=== PATIENT | female | born 1945 | race Caucasian/White ===

== ENCOUNTER → 2022-05-30 | Outpatient (CLI) | payer MEDICARE ==
--- NOTE | 2022-05-30 17:18 | Diagnostic Imaging Report ---
INDICATION: Postmenopausal state COMPARISON: None available FINDINGS: AP Spine L1-L4: [BMD (g/cm2): 1.338] [T-Score: 1.2] [Z-Score: 2.3] [BMD Previous: NA] [BMD % Change: NA] LT Hip Neck: [BMD (g/cm2): 0.750] [T-Score: -2.1] [Z-Score: -0.4] LT Hip Total: [BMD (g/cm2):0.915] [T-Score:-0.7] [Z-Score: 0.7] [BMD Previous: NA] [BMD % Change: NA] RT Hip Neck: [BMD (g/cm2):0.801] [T-Score:-1.7] [Z-Score:0.0] RT Hip Total: [BMD (g/cm2):0.917] [T-score:-0.7] [Z-Score:0.8] [BMD Previous:NA] [BMD % Change:NA] *Indicates significant change from prior examination based on 95% confidence level. World Health Organization criteria for BMD interpretation classify patients as Normal (T-score at or above -1.0), Osteopenic (T-score between -1.0 and -2.5) or Osteoporotic (T-score at or below -2.5). LIMITATIONS AND MODIFICATION: Postsurgical changes with posterior decompression noted within the lower lumbar spine. FRACTURE RISK (FRAX SCORE): The ten year probability of (%): Major Osteoporotic Fracture: [14.9] Hip Fracture: [4.3] IMPRESSION: 1. Osteopenia (Low bone mass). 2. Baseline examination. 3. See below National Osteoporosis Foundation guidelines on when to potentially initiate pharmacologic therapy. Based on the National Osteoporosis Foundation Guidelines, pharmacologic treatment should be initiated in any of the following, unless clinical conditions suggest otherwise: * Any patient with prior fragility fracture of the hip or vertebrae. A spine fracture indicates 5X risk for subsequent spine fracture and 2X risk for subsequent hip fracture. * Osteoporosis (T-score <-2.5). * Postmenopausal women and men age 50 and older with low bone mass/osteopenia (T-score between -1.0 and -2.5) by DXA and 10-year major osteoporotic fracture greater than 20% or a 10-year probability of hip fracture greater than 3%. These fracture risks are supplied above in the FRAX score, if applicable. * Clinician judgement and/or patient preferences may indicate treatment for people with 10-year fracture probabilities above or below these levels. Dictated by: Dictated on workstation # [id number]
== END ==
LOC: RAD 09:30
PROVIDERS: ATTEND Family Medicine Sports Medicine
DX: R94.4 Abnormal results of kidney function studies (principal); I10 Essential (primary) hypertension; M81.0 Age-related osteoporosis without current pathological fracture; E78.00 Pure hypercholesterolemia, unspecified; M54.50 Low back pain, unspecified; G89.29 Other chronic pain; F33.0 Major depressive disorder, recurrent, mild; M85.80 Other specified disorders of bone density and structure, unspecified site; Z78.0 Asymptomatic menopausal state
CPT/HCPCS: 77080

== ENCOUNTER 2022-06-15 15:50 | Inpatient (IN) | payer MEDICARE ==
[~2022-06-15] VITALS: Ht 162.5 cm; Wt 90.4 kg
[2022-06-15] VITALS (8 sets, daily range): BP systolic 94–121; BP diastolic 47–95
[2022-06-15] MEDS ORDERED: RT-ALBUTEROL/IPRATROPIUM 3 ML (DUONEB) VIAL INH ONE (16:15)
--- NOTE | 2022-06-15 16:20 | ED Respiratory ---
General Chief Complaint: Respiratory Problems Stated Complaint: LOW OX STATS Nursing Triage Note: PT TO RM 8 BY WC WITH COMPLAINT OF LOW OXYGEN. PT WAS SENT BY DR RIVAS TO ED. STARTED FEELING WEAK TWO DAYS AGO. Source: patient Exam Limitations: no limitations History of Present Illness Date Seen by Provider: Jun 15, 2022 Time Seen by Provider: 16:17 Initial Comments 76-year-old female presents for shortness of breath. She states symptoms started today. She was seen at her primary care doctor's office today and oxygen saturations were reportedly around 50 to 60%. She states she started feeling weak 2 days ago, short of breath today. She denies any fevers or chills. She has had a mild nonproductive cough. No sick contacts. No chest pain. No abdominal pain. No changes in bowel or bladder habits. She thinks she may have COPD. She just moved to the area and states the doctor where she was from prior "did not seem concerned about it." She has no known cardiac history but did have a stress test recently for clearance for back surgery. This was reportedly negative. Allergies and Home Medications Allergies Coded Allergies: No Known Drug Allergies (Unverified , 06/15/22) Patient Home Medication List Home Medication List Reviewed: Yes Review of Systems Review of Systems Constitutional: no symptoms reported EENTM: no symptoms reported Respiratory: short of breath Cardiovascular: no symptoms reported Gastrointestinal: no symptoms reported Genitourinary: no symptoms reported Musculoskeletal: no symptoms reported Skin: no symptoms reported Psychiatric/Neurological: No Symptoms Reported Hematologic/Lymphatic: No Symptoms Reported Immunological/Allergic: no symptoms reported Past Jraqiyo-Kwryqe-Lfdqpn Hx Patient Social History Tobacco Use?: No Smoking Status: Former Smoker Use of E-Cig and/or Vaping dev: No Substance use?: No Alcohol Use?: Yes Alcohol Frequency: Once in a while Pt feels they are or have been: No Family Medical History Reviewed Nursing Family Hx No Pertinent Family Hx Physical Exam Vital Signs - First Documented 06/15/22 06/15/22 15:55 16:23 Pulse 61 Resp 22 B/P (MAP) 124/81 (95) Pulse Ox 93 O2 Delivery OxyMask O2 Flow Rate 10.00 Capillary Refill : Greater Than 3 Seconds Height: '" Weight: lbs. oz. kg; 33.00 BMI Method: General Appearance: WD/WN, no apparent distress HEENT: PERRL/EOMI, normal ENT inspection, TMs normal, pharynx normal Neck: non-tender, full range of motion, supple, normal inspection Respiratory: chest non-tender, no respiratory distress, no accessory muscle use, other (Coarse rhonchi throughout all lung woods.) Cardiovascular: regular rate, rhythm, no gallop, no JVD, no murmur, other (The patient has peripheral cyanosis, blue hue to her fingers. She also has some central cyanosis with blue hue to her nose.) Gastrointestinal: normal bowel sounds, non tender, soft, no organomegaly, no pulsatile mass Extremities: normal range of motion, non-tender, other (Edema bilateral lower extremities) Neurologic/Psychiatric: alert, normal mood/affect, oriented x 3 Skin: normal color, warm/dry Lymphatic: no adenopathy Focused Exam Lactate Level 06/15/22 16:13: Lactic Acid Level 2.50*H Lactic Acid Level Laboratory Tests Test 06/15/22 16:13 Lactic Acid Level 2.50 MMOL/L (0.50-2.00) *H Progress/Results/Core Measures Suspected Sepsis SIRS Temperature: Pulse: 61 Respiratory Rate: 22 Laboratory Tests 06/15/22 16:13: White Blood Count 13.5H Blood Pressure 124 /81 Mean: 95 06/15/22 16:13: Lactic Acid Level 2.50*H Laboratory Tests 06/15/22 16:13: Creatinine 2.03H, Platelet Count 250, Total Bilirubin 0.9 Results/Orders Lab Results Laboratory Tests Test 06/15/22 16:13 06/15/22 16:34 Range/Units White Blood Count 13.5 H 4.3-11.0 10^3/uL Red Blood Count 4.89 3.80-5.11 10^6/uL Hemoglobin 14.7 11.5-16.0 g/dL Hematocrit 48 35-52 % Mean Corpuscular Volume 98 80-99 fL Mean Corpuscular Hemoglobin 30 25-34 pg Mean Corpuscular Hemoglobin Concent 31 L 32-36 g/dL Red Cell Distribution Width 15.9 H 10.0-14.5 % Platelet Count 250 130-400 10^3/uL Mean Platelet Volume 9.9 9.0-12.2 fL Immature Granulocyte % (Auto) 1 % Neutrophils (%) (Auto) 79 H 42-75 % Lymphocytes (%) (Auto) 14 12-44 % Monocytes (%) (Auto) 6 0-12 % Eosinophils (%) (Auto) 0 0-10 % Basophils (%) (Auto) 1 0-10 % Neutrophils # (Auto) 10.7 H 1.8-7.8 10^3/uL Lymphocytes # (Auto) 1.9 1.0-4.0 10^3/uL Monocytes # (Auto) 0.8 0.0-1.0 10^3/uL Eosinophils # (Auto) 0.0 0.0-0.3 10^3/uL Basophils # (Auto) 0.1 0.0-0.1 10^3/uL Immature Granulocyte # (Auto) 0.1 0.0-0.1 10^3/uL Sodium Level 137 135-145 MMOL/L Potassium Level 6.3 H 3.6-5.0 MMOL/L Chloride Level 102 98-107 MMOL/L Carbon Dioxide Level 28 21-32 MMOL/L Anion Gap 7 5-14 MMOL/L Blood Urea Nitrogen 45 H 7-18 MG/DL Creatinine 2.03 H 0.60-1.30 MG/DL Estimat Glomerular Filtration Rate 25 BUN/Creatinine Ratio 22 Glucose Level 163 H 70-105 MG/DL Lactic Acid Level 2.50 *H 0.50-2.00 MMOL/L Calcium Level 9.6 8.5-10.1 MG/DL Corrected Calcium 9.6 8.5-10.1 MG/DL Total Bilirubin 0.9 0.1-1.0 MG/DL Aspartate Amino Transf (AST/SGOT) 20 5-34 U/L Alanine Aminotransferase (ALT/SGPT) 18 0-55 U/L Alkaline Phosphatase 85 40-136 U/L Troponin I 0.034 H <0.028 NG/ML B-Type Natriuretic Peptide 1463.2 H <100.0 PG/ML Total Protein 7.8 6.4-8.2 GM/DL Albumin 4.0 3.2-4.5 GM/DL Influenza Type A (RT-PCR) Not Detected Not Detecte Influenza Type B (RT-PCR) Not Detected Not Detecte SARS-CoV-2 RNA (RT-PCR) Not Detected Not Detecte Blood Gas Puncture Site UNK Blood Gas Patient Temperature 37 Arterial Blood pH 7.30 *L 7.37-7.43 Arterial Blood Partial Pressure CO2 52 H 35-45 MMHG Arterial Blood Partial Pressure O2 58 L 79-93 MMHG Arterial Blood HCO3 25 23-27 MMOL/L Arterial Blood Total CO2 26.5 21.0-31.0 MMOL/L Arterial Blood Oxygen Saturation 88 L 94-100 % Arterial Blood Base Excess -0.7 -2.5-2.5 MMOL/L Ashok Test UNK Blood Gas Ventilator Setting NO Blood Gas Inspired Oxygen N/A My Orders Orders - ANNA,ALDEN L DO Troponin I [place] (06/15/22 16:12) Ekg Tracing (06/15/22 16:12) Comprehensive Metabolic Panel (06/15/22 16:12) Cbc With Automated Diff (06/15/22 16:12) Covid 19 Inhouse Test (06/15/22 16:12) Bnp [place] (06/15/22 16:12) Influenza A And B By Pcr (06/15/22 16:12) Albuterol/Ipra Inhalation Soln (Duoneb I (06/15/22 16:15) Svn Small Volume Nebulizer (06/15/22 16:12) Arterial Blood Gas (06/15/22 16:12) Lactic Acid Analyzer (06/15/22 16:12) Blood Culture (06/15/22 16:12) Urinalysis (06/15/22 16:12) Chest 1 View, Ap/Pa Only (06/15/22 16:12) Ed Iv/Invasive Line Start (06/15/22 16:12) Ed Iv/Invasive Line Start (06/15/22 16:12) Vital Signs Adult Sepsis Patie Q15M (06/15/22 16:12) O2 (06/15/22 16:12) Arterial Blood Draw - Obtain (06/15/22 ) Calc Gluc 1 Gm/100 Ml Ivpb (Calcium Gluc (06/15/22 16:45) Insulin (Regular) Human (Novolin R (Per (06/15/22 16:45) D50w (Emergency) Syringe (Dextrose 50% 5 (06/15/22 16:45) Sodium Bicarbonate 8.4% Syr (Sodium Bica (06/15/22 16:45) Azithromycin Injection (Zithromax Inject (06/15/22 17:00) Ceftriaxone 1 Gm Pre-Mix (Rocephin 1 Gm (06/15/22 17:00) Fibrin Degradation Products (06/15/22 16:57) Ed Admission (Communication) (06/15/22 16:57) Medications Given in ED Current Medications Medications Dose Ordered Sig/Gloria Route Start Time Stop Time Status Last Admin Dose Admin Albuterol/ Ipratropium 3 ml ONCE ONCE INH 06/15/22 16:15 06/15/22 16:16 DC 06/15/22 16:22 3 ML Azithromycin 500 mg/Sodium Chloride 250 ml @ 250 mls/hr ONCE ONCE IV 06/15/22 17:00 06/15/22 17:59 06/15/22 17:10 250 MLS/HR Calcium Gluconate/ Sodium Chloride 100 ml @ 120 mls/hr ONCE ONCE IV 06/15/22 16:45 06/15/22 17:34 DC 06/15/22 16:58 120 MLS/HR Ceftriaxone Sodium/Dextrose 50 ml @ 100 mls/hr ONCE ONCE IV 06/15/22 17:00 06/15/22 17:29 DC 06/15/22 17:48 100 MLS/HR Dextrose 25 ml ONCE ONCE IV 06/15/22 16:45 06/15/22 16:46 DC 06/15/22 16:59 25 ML Insulin Human Regular 10 unit ONCE ONCE SC 06/15/22 16:45 06/15/22 16:46 DC 06/15/22 16:58 10 UNIT Sodium Bicarbonate 50 meq ONCE ONCE IV 06/15/22 16:45 06/15/22 16:46 DC 06/15/22 16:59 50 MEQ Vital Signs/I&O 06/15/22 06/15/22 06/15/22 15:55 15:55 16:23 Pulse 61 Resp 22 B/P (MAP) 124/81 (95) Pulse Ox 93 O2 Delivery OxyMask OxyMask O2 Flow Rate 10.00 10.00 Capillary Refill : Greater Than 3 Seconds Blood Pressure Mean: 95 ECG Comment EKG shows sinus rhythm at 63 bpm. Normal intervals. Normal axis. Right bundle branch block is present. No ST or T wave abnormalities. No ectopy. No STEMI Critical Care Note Critical Care Start Time: 16:17 Stop Time: 17:17 Total Time (minutes) 60 Departure Communication (Admissions) Time/Spoke to Admitting Phy: 16:[address] Sanchez who accepts admission. Requests addition of a d-dimer to work up. I will start IVF as Cr is elevated with low GFR. Patient is hemodynamically stable. Improved oxygenation with a simple mask. She is currently on 5 L with 90 to 94% oxygen saturation. Her cyanosis has improved. Blood gas reveals this is likely chronic in nature. Chest x-ray shows possible bibasilar pneumonia per radiology's read. Started on broad- spectrum antibiotics given leukocytosis and elevated lactic acid. Blood cultures were obtained prior to antibiotic administration. She was found to be hyperkalemic. I called the lab to ensure there was no hemolysis in the sample and there was not. Started on calcium insulin glucose and bicarbonate. EKG has no changes associated with hyperkalemia. She was initially normotensive. This did trend down slightly to around 100 systolic prior to admission to the ICU. I did start her on IV fluids at 75 cc/h. I spoke with Dr. Sanchez who accepts the patient in admission at this time, requested D-dimer be added to the work-up Impression Primary Impression: Community acquired pneumonia Qualified Codes: J18.9 - Pneumonia, unspecified organism Additional Impressions: Hypoxia Hyperkalemia Disposition: ADMITTED INPATIENT Condition: Stable Admissions Decision to Admit Reason: Admit from ER (General) Decision to Admit/Date: Jun 15, 2022 Time/Decision to Admit Time: 16:45 Departure-Patient Inst. Referrals: NEVILLE LOZANO MD (PCP/Family) Primary Care Physician ALDEN CASTILLO DO Jun 15, 2022 16:20
[2022-06-15 16:31] LABS: BASOPHILS # (AUTO) 0.1 10^3/uL (0.0-0.1); BASOPHILS % (AUTO) 1 % (0-10); EOSINOPHILS % (AUTO) 0 % (0-10); HEMATOCRIT 48 % (35-52); HEMOGLOBIN 14.7 g/dL (11.5-16.0); LYMPHOCYTES # (AUTO) 1.9 10^3/uL (1.0-4.0); LYMPHOCYTES % (AUTO) 14 % (12-44); MEAN CORPUSCULAR HEMOGLOBIN 30 pg (25-34); MEAN CORPUSCULAR HGB CONC 31 g/dL (32-36); MEAN CORPUSCULAR VOLUME 98 fL (80-99); MEAN PLATELET VOLUME 9.9 fL (9.0-12.2); MONOCYTES # (AUTO) 0.8 10^3/uL (0.0-1.0); MONOCYTES % (AUTO) 6 % (0-12); NEUTROPHILS # (AUTO) 10.7 10^3/uL (1.8-7.8); NEUTROPHILS % (AUTO) 79 % (42-75); PLATELET COUNT 250 10^3/uL (130-400); WHITE BLOOD COUNT 13.5 10^3/uL (4.3-11.0)
[2022-06-15 16:34] LABS: POTASSIUM 6.3 MMOL/L (3.6-5.0)
[2022-06-15 16:36] LABS: CALCIUM 9.6 MG/DL (8.5-10.1)
[2022-06-15 16:37] LABS: ABG BASE EXCESS -0.7 MMOL/L (-2.5-2.5); ABG OXYGEN SATURATION 88 % (94-100); ABG PCO2 52 MMHG (35-45); ABG PO2 58 MMHG (79-93); ABG TCO2 26.5 MMOL/L (21.0-31.0)
[2022-06-15 16:37] LABS: TOTAL PROTEIN 7.8 GM/DL (6.4-8.2)
[2022-06-15 16:38] LABS: PATIENT TEMP 37; VENTILATOR NO
[2022-06-15 16:39] LABS: BILIRUBIN,TOTAL 0.9 MG/DL (0.1-1.0)
[2022-06-15 16:40] LABS: CREATININE SERUM 2.03 MG/DL (0.60-1.30)
[2022-06-15] MEDS ORDERED: DEXTROSE 50% 50 ML (IMS) SYR IV ONE (16:45)
[2022-06-15] MEDS ORDERED: SODIUM BICARB 8.4% 50 MEQ/50 ML (ABBOTT) SYR IV ONE (16:45)
[2022-06-15] MEDS ORDERED: inSUlin (REGULAR) HUMAN 1 UNIT/0.01 ML (CHARGE PER UNIT) SC ONE (16:45)
[2022-06-15] MEDS ORDERED: CALC GLUC 1 GM/100 ML IVPB 100 ML IV ONE (16:45)
--- NOTE | 2022-06-15 16:52 | Diagnostic Imaging Report ---
INDICATION: Dyspnea. Portable AP view of the chest is obtained. There is no previous study for comparison. FINDINGS: Heart size and pulmonary vascularity are within normal limits. There is air trapping in the upper lobes, greater on the left. Mild basilar atelectasis is seen bilaterally. A component of basilar scarring is not excluded. There is no consolidation or evidence of significant pleural fluid. IMPRESSION: Emphysema, greater on the left, with basilar atelectasis and/or pneumonitis, bilaterally. Dictated by: Dictated on workstation # [id number]
[2022-06-15] MEDS ORDERED: AZITHROMYCIN INJECTION 500 MG in NS (IVPB) 250 ML IV ONE (17:00)
[2022-06-15] MEDS ORDERED: cefTRIAXone 1 GM PRE-MIX 50 ML IV ONE ×2 (17:00→21:30)
[2022-06-15] MEDS ORDERED: NS IV 1000 ML 1,000 ML IV SCH (17:45)
[2022-06-15] MEDS ORDERED: ANTACID SUSP 30 ML UDC (MYLANTA) PO PRN (18:30)
[2022-06-15] MEDS ORDERED: diphenhydrAMINE 25 MG TAB (BENADRYL) PO PRN (18:30)
[2022-06-15] MEDS ORDERED: CALCIUM CARBONATE 500 MG (TUMS) TAB.CHEW PO PRN (18:30)
[2022-06-15] MEDS ORDERED: ONDANSETRON 4 MG/2 ML (SDV) Z0FRAN IV PRN (18:30)
[2022-06-15] MEDS ORDERED: MELATONIN 3 MG TABLET PO PRN (18:30)
[2022-06-15] MEDS ORDERED: cefTRIAXone 2,000 MG in NS (IVPB) 50 ML IV SCH (18:30)
[2022-06-15] MEDS ORDERED: polyethylene glycoL POWDER 17 GM (MIRALAX) PACK PO PRN (18:30)
[2022-06-15] MEDS ORDERED: hydrALAZINE (APESOLINE) 20 MG/ML VIAL IV PRN (18:30)
[2022-06-15] MEDS ORDERED: ONDANSETRON 4 MG (ZOFRAN) ORAL DISSOLVE TAB PO PRN (18:30)
[2022-06-15] MEDS ORDERED: ACETAMINOPHEN 325 MG TABLET PO PRN (18:30)
[2022-06-15] MEDS ORDERED: ENOXAPARIN 100 MG/1 ML (LOVENOX) SYR SC SCH (18:30)
[2022-06-15] MEDS ORDERED: LACTULOSE SYRUP 10GM/15ML (ENULOSE) 30ML UDC PO PRN (18:30)
[2022-06-15] MEDS ORDERED: NS IV 500 ML 500 ML IV PRN (18:30)
[2022-06-15] MEDS ORDERED: BISACODYL 10 MG SUPP (DULCOLAX) PR PRN (18:30)
[2022-06-15] MEDS ORDERED: diphenhydrAMINE 50 MG/ML INJ (BENADRYL) IVP PRN (18:30)
[2022-06-15] MEDS ORDERED: MILK OF MAGNESIA 400 MG/5 ML 30 ML UDC PO PRN (18:30)
[2022-06-15 18:38] LABS: BILIRUBIN,URINE NEGATIVE (NEGATIVE); CLARITY,URINE CLEAR; COLOR,URINE YELLOW; GLUCOSE, URINE (UA) NEGATIVE (NEGATIVE); KETONES,URINE NEGATIVE (NEGATIVE); LEUKOCYTE ESTERASE ,URINE NEGATIVE (NEGATIVE); NITRITE,URINE NEGATIVE (NEGATIVE); PROTEIN,URINE NEGATIVE (NEGATIVE)
[2022-06-15 18:52] LABS: BACTERIA,URINE LARGE /HPF
[2022-06-15] MEDS: NS IV 1000 ML 1,000 ML IV SCH (19:00)
--- NOTE | 2022-06-15 20:06 | Tele-ICU Progress Note ---
Progress Note 76F reporting minimal history admitted with hypoxia. She reports possible COPD which her prior doctor was not concerned abouut. Also reporting furosemide prescribed by urologist (??). She moved to the area about 3 months ago and went to PCP to establish care, found to be hypoxic in the 50-60s on RA. Reporting 2 days weakness, SOB starting today. Currently resting comfortably on bipap. - hypoxia: unclear etiology. CXR with small RLL alveolar opacities, but hypoxia is out of proportion to this finding. BiPap initiated. Ddimer positive. Echo already ordered, can eval for RH strain. Will send dopplers and VQ. Empiric therapuetic lovenox given. - SAMIR vs CKD: baseline unknown. With casts suspect at least a component of SAMIR. IVF ongoing. Avoid nephrotoxins and hypotension. Given weakness, send CK with next labs. - hyperkalemia: treatment given. 2100 BMP. - hypglycemia: mild at 160, not fasting. Send A1C with next labs. Focused Exam Lactate Level 06/15/22 16:13: Lactic Acid Level 2.50*H 06/15/22 18:24: Lactic Acid Level 1.69 Height, Weight, BMI Height: '" Weight: lbs. oz. kg; 33.06 BMI Method: Lactic Acid Level Laboratory Tests Test 06/15/22 16:13 06/15/22 18:24 Lactic Acid Level 2.50 MMOL/L (0.50-2.00) *H 1.69 MMOL/L (0.50-2.00) CED TURPIN MD Jun 15, 2022 20:06
--- NOTE | 2022-06-15 20:24 | History & Physical-Hospitalist ---
History of Present Illness Source: patient Exam Limitations: no limitations Date Seen 06/15/22 Time Seen by a Provider: 19:15 Attending Physician Benoit Melendez MD PCP Admitting Physician: Meaghan Miller MD Attending Physician: Meaghan Miller MD Referring Physician Date of Admission Jun 15, 2022 at 17:00 Home Medications & Allergies Home Medications Reviewed patient Home Medication Reconciliation performed by pharmacy medication reconciliations install and repair technician and/or nursing. Patients Allergies have been reviewed. Allergies Allergies Coded Allergies No Known Drug Allergies (Pubxsjemds28/13/22) Past Aepgipl-Ujzsfx-Kvlxvk Hx Patient Social History Tobacco Use?: No Smoking Status: Former Smoker Smokeless Tobacco Frequency: Never a User Use of E-Cig and/or Vaping dev: No Substance use?: No Alcohol Use?: Yes Alcohol Frequency: Once in a while Pt feels they are or have been: No Immunizations Up To Date Tetanus Booster (TDap): Unknown Current Status status: No status: No Advance Directives: No Communicates: Verbally Primary Language: Greek Preferred Spoken Language: Greek Is interpretation needed?: No Implanted or Applied Medical D: None Past Medical History COPD Coronary Artery Disease, High Cholesterol, Hypertension Renal Failure Family Medical History Reviewed Nursing Family Hx No Pertinent Family Hx Review of Systems Constitutional: malaise, weakness EENTM: no symptoms reported Respiratory: no symptoms reported Cardiovascular: no symptoms reported Gastrointestinal: no symptoms reported Genitourinary: no symptoms reported Physical Exam Physical Exam Vital Signs Vital Signs - First Documented 06/15/22 06/15/22 06/15/22 15:55 16:23 19:01 Pulse 61 Resp 22 B/P (MAP) 124/81 (95) Pulse Ox 93 O2 Delivery OxyMask O2 Flow Rate 10.00 FiO2 80 Capillary Refill : Greater Than 3 Seconds Height, Weight, BMI Height: '" Weight: lbs. oz. kg; 33.06 BMI Method: General Appearance: No Apparent Distress, Obese HEENT: PERRL/EOMI, Pharynx Normal Neck: Normal Inspection, Supple Respiratory: No Respiratory Distress, Decreased Breath Sounds, Other (wearing BiPAP) Cardiovascular: Regular Rate, Rhythm, No Murmur Gastrointestinal: Normal Bowel Sounds, Non Tender, Soft Extremity: Non Tender, Swelling Neurologic/Psychiatric: Alert, Oriented x3, Normal Mood/Affect Skin: Normal Color, Warm/Dry Results Results/Procedures Labs Laboratory Tests 06/15/22 16:13 Patient resulted labs reviewed. Imaging: Reviewed Imaging Films, Reviewed Imaging Report Assessment/Plan Admission Diagnosis Severe sepsis due to pneumonia Admission Status: Inpatient Order (span 2 midnights) Reason for Inpatient Admission: Respiratory failure Assessment and Plan Severe sepsis due to pneumonia Lactic acidosis SAMIR on CKD Acute respiratory failure with hypoxia and hypercapnia COPD with acute exacerbation Elevated d-dimer SIRS+ with leukocytosis and tachypnea Chest xray with possible pneumonia Procal elevated D-dimer elevated Unable to CT due to renal failure Repeat BMP tomorrow morning, CT vs VQ tomorrow Therapeutic Lovenox IV fluids deferred due to fluid overload, possible CHF IV antibiotics IV Solumedrol MAT protocol BiPAP as needed TeleICU consulted Elevated troponin Elevated BNP Lower extremity swelling Cardiology consulted Repeat troponin Echo tomorrow HTN HLD CAD Resume home meds once med rec completed IV Hydralazine as needed Obesity Clincally significant, no acute management needs Critical Care Critically Ill Patient Diagnosis/Problems Diagnosis/Problems (1) Severe sepsis Status: Acute (2) PNA (pneumonia) Status: Acute (3) Acute respiratory failure with hypoxia and hypercapnia Status: Acute (4) Lactic acidosis Status: Acute (5) Acute kidney injury superimposed on chronic kidney disease Status: Acute (6) Elevated d-dimer Status: Acute (7) COPD with acute exacerbation Status: Acute (8) Elevated troponin Status: Acute (9) Elevated brain natriuretic peptide (BNP) level Status: Acute (10) Swelling of both lower extremities Status: Acute (11) HTN (hypertension) Status: Chronic (12) HLD (hyperlipidemia) Status: Chronic (13) CAD (coronary artery disease) Status: Chronic (14) Obesity Status: Chronic (15) Former smoker Status: Chronic MEAGHAN MILLER MD Jun 15, 2022 20:24
[2022-06-15] MEDS: DOCUSATE SODIUM 100 MG (COLACE) CAP PO SCH (21:11)
[2022-06-15] MEDS: SENNOSIDES 8.6 MG (SENOKOT) TAB PO SCH (21:11)
[2022-06-15 21:21] LABS: CALCIUM 9.5 MG/DL (8.5-10.1); CREATININE SERUM 1.83 MG/DL (0.60-1.30); POTASSIUM 5.8 MMOL/L (3.6-5.0)
[2022-06-15 21:23] LABS: CHOLESTEROL 114 MG/DL (< 200); HDL CHOLESTEROL 45 MG/DL (40-60); TRIGLYCERIDES 173 MG/DL (<150); VLDL CHOLESTEROL 35 MG/DL (5-40)
--- NOTE | 2022-06-15 21:23 | Diagnostic Imaging Report ---
PROCEDURE: US venous lower extremity bilateral. TECHNIQUE: Multiple real-time grayscale images were obtained over the lower extremities in various projections, bilaterally. Additional duplex Doppler and color Doppler images were also obtained. INDICATION: Bilateral lower extremity edema. COMPARISON: None. FINDINGS: The bilateral common femoral vein, femoral vein, deep femoral vein and popliteal vein are normal in appearance. These vessels show normal compressibility, color flow and Doppler augmentation. The visualized deep calf veins demonstrate no distinct intraluminal thrombus. IMPRESSION: No sonographic evidence of deep venous thrombosis in the bilateral lower extremities. Dictated by: Dictated on workstation # [id number]
[2022-06-15 22:26] LABS: CREATINE KINASE 88 U/L (29-168)
[2022-06-15] MEDS: methylPREDNISolone 40 MG/ML (Solu-MEDROL) VIAL IV SCH (23:56)
[2022-06-16] VITALS (17 sets, daily range): BP systolic 20–137; BP diastolic 57–90
[2022-06-16] MEDS: RT-ALBUTEROL/IPRATROPIUM 3 ML (DUONEB) VIAL INH SCH ×4 (02:24→21:57)
[2022-06-16 05:24] LABS: BASOPHILS % (AUTO) 0 % (0-10); EOSINOPHILS % (AUTO) 0 % (0-10); HEMATOCRIT 45 % (35-52); HEMOGLOBIN 13.7 g/dL (11.5-16.0); LYMPHOCYTES # (AUTO) 0.7 10^3/uL (1.0-4.0); LYMPHOCYTES % (AUTO) 8 % (12-44); MEAN CORPUSCULAR HEMOGLOBIN 30 pg (25-34); MEAN CORPUSCULAR HGB CONC 31 g/dL (32-36); MEAN CORPUSCULAR VOLUME 98 fL (80-99); MONOCYTES # (AUTO) 0.1 10^3/uL (0.0-1.0); MONOCYTES % (AUTO) 1 % (0-12); NEUTROPHILS # (AUTO) 8.8 10^3/uL (1.8-7.8); NEUTROPHILS % (AUTO) 90 % (42-75); PLATELET COUNT 181 10^3/uL (130-400); WHITE BLOOD COUNT 9.7 10^3/uL (4.3-11.0)
[2022-06-16] MEDS: methylPREDNISolone 40 MG/ML (Solu-MEDROL) VIAL IV SCH ×4 (05:30→23:56)
[2022-06-16] MEDS: NS IV 1000 ML 1,000 ML IV SCH ×3 (05:30→23:57)
[2022-06-16 05:43] LABS: POTASSIUM 6.1 MMOL/L (3.6-5.0)
[2022-06-16 05:45] LABS: CALCIUM 9.3 MG/DL (8.5-10.1)
[2022-06-16 05:49] LABS: CREATININE SERUM 1.78 MG/DL (0.60-1.30)
[2022-06-16] MEDS: POTASSIUM CL 10MEQ/50ML IVPB 50 ML IV SCH (05:50)
[2022-06-16] MEDS: KCL 20 MEQ TAB (K-DUR) PO SCH (05:50)
[2022-06-16 05:51] LABS: MAGNESIUM 2.5 MG/DL (1.6-2.4)
[2022-06-16] MEDS: MAGNESIUM 1 GM/100 ML IVPB 100 ML IV SCH (05:51)
[2022-06-16 06:11] LABS: LYMPHOCYTES % (MANUAL) 7 %; MONOCYTES % (MANUAL) 1 %; NEUTROPHILS % (MANUAL) 92 %; NUCLEATED RED BLOOD CELLS 2; POLYCHROMASIA SLIGHT
[2022-06-16] MEDS: SENNOSIDES 8.6 MG (SENOKOT) TAB PO SCH ×2 (09:00→20:59)
[2022-06-16] MEDS: DOCUSATE SODIUM 100 MG (COLACE) CAP PO SCH ×2 (09:00→20:59)
[2022-06-16] MEDS: AZITHROMYCIN 250 MG TAB (ZITHROMAX) PO SCH (10:28)
[2022-06-16] MEDS ORDERED: MTP100TCR PO (10:50)
[2022-06-16] MEDS ORDERED: AMLO-251 PO (10:50)
[2022-06-16] MEDS ORDERED: MIRA25TA PO (10:50)
[2022-06-16] MEDS ORDERED: ATOR40TA70 PO (10:50)
[2022-06-16] MEDS ORDERED: MAGN400T7 PO (10:50)
[2022-06-16] MEDS ORDERED: LOSA100T57 PO (10:50)
[2022-06-16] MEDS ORDERED: PREG25CA PO (10:50)
--- NOTE | 2022-06-16 10:50 | Physical Therapy Evaluation ---
PT Evaluation-General Medical Diagnosis Admission Date Jun 15, 2022 at 17:00 Medical Diagnosis: pneumonia/hypoxia Onset Date: Jun 15, 2022 Therapy Diagnosis Therapy Diagnosis: generalized weakness/debility Precautions Precautions/Isolations: Fall Prevention, Standard Precautions Referral Physician: Daniel Reason for Referral: Evaluation/Treatment Medical History Pertinent Medical History: CAD, COPD, HTN, Renal Insufficiency Current History ER secondary to SOA Reviewed History: Yes Social History Home: Single Level Current Living Status: Spouse PT Steps Into Home: 1 Prior Prior Level of Function SCALE: Activities may be completed with or without assistive devices. 9-Ruvsysrqmm-fumweob completes the activity by him/herself with no assistance from a helper. 5-Set-up or Clean-up Assistance-helper sets up or cleans up; patient completes activity. Benton assists only prior to or following the activity. 4-Supervision or Touching Assistance-helper provides verbal cues and/or touchin g/steadying and/or contact guard assistance as patient completes activity. Assistance may be provided throughout the activity or intermittently. 3-Partial/Moderate Assistance-helper does LESS THAN HALF the effort. Benton lifts, holds or supports trunk or limbs, but provides less than half the effort. 2-Substantial/Maximal Assistance-helper does MORE THAN HALF the effort. Benton lifts or holds trunk or limbs and provides more than half the effort. 4-Zpauivpbs-wxthaj does ALL the effort. Patient does none of the effort to complete the activity. Or, the assistance of 2 or more helpers is required for the patient to complete the activity. If activity was not attempted, code reason: 7-Patient Refused. 9-Not Applicable-not attempted and the patient did not perform the activity before the current illness, exacerbation or injury. 10-Not Attempted due to Environmental Limitations-(lack of equipment, weather restraints, etc.). 88-Not Attempted due to Medical Conditions or Safety Concerns. Bed Mobility: 6 Transfers (B,C,W/C): 6 Gait: 6 Stairs: 6 Indoor Mobility (Ambulation): Independent Stairs: Independent Prior Devices Use: None PT Evaluation-Current Subjective Patient agrees to PT. Currently on BiPap. Objective Patient Orientation: Normal For Age Attachments: Oxygen (Bipap) ROM/Strength ROM Lower Extremities bilateral LE WFL Strength Lower Extremities 3/5 grossly bilateral LE all planes Integumentary/Posture Bowel Incontinence: No Bladder Incontinence: Briones Cath Posture WFL Neuromuscular (Tone, Coordination, Reflexes) grossly intact Sensory Vision: Functional Hearing: Functional Transfers Lying to Sitting/Side of Bed(Q: 3 Sit to Stand (QC): 3 Chair/Nva-pa-Joqmt Xfer(QC): 3 Gait Mode of Locomotion: Walk Anticipated Mode of Locomotion: Walk Walk 10 feet (QC): 3 Walk 50 ft with 2 Turns(QC): 88 Walk 150 ft (QC): 88 Distance: 10' Gait Assistive Device: FWW Comments/Gait Description slightly unsteady gait sequence due to inactivity and BiPap limiting mobility Balance Sitting Static: Normal Sitting Dynamic: Normal Standing Static: Fair Standing Dynamic: Fair Assessment/Needs 76 y.o. female, will benefit from skilled PT to address functional strength and mobility to improve current LOF to safely return to home at maximum LOF. Rehab Potential: Fair PT Speech Communication Professor Goals Mcc Goals PT Mcc Goals Time Frame: Jun 24, 2022 Roll Left & Right (QC): 6 Sit to Lying (QC): 6 Lying-Sitting on Side/Bed(QC): 6 Sit to Stand (QC): 6 Chair/Nmu-rf-Euuug Xfer(QC): 6 Toilet Transfer (QC): 6 Walk 10 feet (QC): 6 Walk 50ft with 2 Turns (QC): 6 Walk 150 ft (QC): 6 PT Plan Problem List Problem List: Activity Tolerance, Functional Strength, Safety, Balance, Gait, Transfer, Bed Mobility Treatment/Plan Treatment Plan: Continue Plan of Care Treatment Plan: Bed Mobility, Education, Functional Activity Susan, Functional Strength, Gait, Safety, Therapeutic Exercise, Transfers Treatment Duration: Jun 24, 2022 Frequency: 6 times per week Estimated Hrs Per Day: .25 hour per day Patient and/or Family Agrees t: Yes Time/GCodes Time In: 758 Time Out: 811 Total Billed Treatment Time: 13 Total Billed Treatment 1 visit EVModC 13 min ELDER ESPITIA PT Jun 16, 2022 10:50
--- NOTE | 2022-06-16 11:27 | Diagnostic Imaging Report ---
LUNG SCAN PERFUSION INDICATION: Community-acquired pneumonia. Hypoxia. COMPARISON: Chest radiograph of 06/15/2022. TECHNIQUE: Perfusion only imaging of the lungs was performed after the intravenous administration of 5.47 mCi of technetium-99m MAA. FINDINGS: There is homogeneous perfusion throughout both lungs. No peripheral filling defects that would suggest segmental pulmonary emboli. IMPRESSION: Normal perfusion exam. No pulmonary emboli. Dictated by: Dictated on workstation # [id number]
--- NOTE | 2022-06-16 11:56 | Consultation-Cardiology ---
HPI-Cardiology Cardiology Consultation Date of Consultation 06/16/22 Date of Admission Time Seen by Provider: 11:51 Indication: Shortness of breath HPI 76-year-old lady with history of hypertension, questionable history of coronary artery disease, started to have increasing dyspnea. She became hypoxemic. Having generalized weakness, came into the emergency room and she was admitted. She was in respiratory failure and started on BiPAP. She was noted to have minimal troponin elevation. Denied any chest pain or palpitation, no syncope. Home Medications & Allergies Allergies: Coded Allergies: No Known Drug Allergies (Unverified , 06/15/22) Home Medication List Reviewed: Yes [id number] Hx Patient Social History Marital Status: Employed/Student: retired Smoking Status: Former Smoker Have you traveled recently?: No Alcohol Use?: Yes Past Medical History Discussed below Family Medical History Significant Family History: No Pertinent Family Hx Review of Systems-General Review of Systems Constitutional: see HPI, malaise, weakness EENTM: see HPI, no symptoms reported Respiratory: see HPI, cough, dyspnea on exertion; No hemoptysis, No orthopnea, No phlegm; short of breath; No stridor, No wheezing, No other Cardiovascular: see HPI; No chest pain, No edema, No Hx of Intervention, No palpitations, No syncope, No vascular heart diseas, No other Gastrointestinal: no symptoms reported, see HPI Genitourinary: no symptoms reported, see HPI Musculoskeletal: no symptoms reported Skin: no symptoms reported, see HPI Psychiatric/Neurological: No Symptoms Reported, See HPI Reviewed Test Results Reviewed Test Results Lab Laboratory Tests Test 06/15/22 16:13 06/15/22 16:34 06/15/22 18:24 06/15/22 20:54 Range/Units White Blood Count 13.5 H 4.3-11.0 10^3/uL Red Blood Count 4.89 3.80-5.11 10^6/uL Hemoglobin 14.7 11.5-16.0 g/dL Hematocrit 48 35-52 % Mean Corpuscular Volume 98 80-99 fL Mean Corpuscular Hemoglobin 30 25-34 pg Mean Corpuscular Hemoglobin Concent 31 L 32-36 g/dL Red Cell Distribution Width 15.9 H 10.0-14.5 % Platelet Count 250 130-400 10^3/uL Mean Platelet Volume 9.9 9.0-12.2 fL Immature Granulocyte % (Auto) 1 % Neutrophils (%) (Auto) 79 H 42-75 % Lymphocytes (%) (Auto) 14 12-44 % Monocytes (%) (Auto) 6 0-12 % Eosinophils (%) (Auto) 0 0-10 % Basophils (%) (Auto) 1 0-10 % Neutrophils # (Auto) 10.7 H 1.8-7.8 10^3/uL Lymphocytes # (Auto) 1.9 1.0-4.0 10^3/uL Monocytes # (Auto) 0.8 0.0-1.0 10^3/uL Eosinophils # (Auto) 0.0 0.0-0.3 10^3/uL Basophils # (Auto) 0.1 0.0-0.1 10^3/uL Immature Granulocyte # (Auto) 0.1 0.0-0.1 10^3/uL D-Dimer 1.05 H 0.00-0.49 UG/ML Sodium Level 137 138 135-145 MMOL/L Potassium Level 6.3 H 5.8 H 3.6-5.0 MMOL/L Chloride Level 102 104 98-107 MMOL/L Carbon Dioxide Level 28 22 21-32 MMOL/L Anion Gap 7 12 5-14 MMOL/L Blood Urea Nitrogen 45 H 45 H 7-18 MG/DL Creatinine 2.03 H 1.83 H 0.60-1.30 MG/DL Estimat Glomerular Filtration Rate 25 28 BUN/Creatinine Ratio 22 25 Glucose Level 163 H 59 *L 70-105 MG/DL Lactic Acid Level 2.50 *H 1.69 0.50-2.00 MMOL/L Calcium Level 9.6 9.5 8.5-10.1 MG/DL Corrected Calcium 9.6 8.5-10.1 MG/DL Total Bilirubin 0.9 0.1-1.0 MG/DL Aspartate Amino Transf (AST/SGOT) 20 5-34 U/L Alanine Aminotransferase (ALT/SGPT) 18 0-55 U/L Alkaline Phosphatase 85 40-136 U/L Troponin I 0.034 H 0.028 <0.028 NG/ML B-Type Natriuretic Peptide 1463.2 H <100.0 PG/ML Total Protein 7.8 6.4-8.2 GM/DL Albumin 4.0 3.2-4.5 GM/DL Procalcitonin 0.83 H <0.10 NG/ML Influenza Type A (RT-PCR) Not Detected Not Detecte Influenza Type B (RT-PCR) Not Detected Not Detecte SARS-CoV-2 RNA (RT-PCR) Not Detected Not Detecte Blood Gas Puncture Site UNK Blood Gas Patient Temperature 37 Arterial Blood pH 7.30 *L 7.37-7.43 Arterial Blood Partial Pressure CO2 52 H 35-45 MMHG Arterial Blood Partial Pressure O2 58 L 79-93 MMHG Arterial Blood HCO3 25 23-27 MMOL/L Arterial Blood Total CO2 26.5 21.0-31.0 MMOL/L Arterial Blood Oxygen Saturation 88 L 94-100 % Arterial Blood Base Excess -0.7 -2.5-2.5 MMOL/L Ashok Test UNK Blood Gas Ventilator Setting NO Blood Gas Inspired Oxygen N/A Urine Color YELLOW Urine Clarity CLEAR Urine pH 5.0 5-9 Urine Specific [place] >=1.030 1.016-1.022 Urine Protein NEGATIVE NEGATIVE Urine Glucose (UA) NEGATIVE NEGATIVE Urine Ketones NEGATIVE NEGATIVE Urine Nitrite NEGATIVE NEGATIVE Urine Bilirubin NEGATIVE NEGATIVE Urine Urobilinogen 0.2 < = 1.0 MG/DL Urine Leukocyte Esterase NEGATIVE NEGATIVE Urine RBC (Auto) NEGATIVE NEGATIVE Urine RBC 5-10 H /HPF Urine WBC 2-5 /HPF Urine Squamous Epithelial Cells 5-10 /HPF Urine Crystals NONE /LPF Urine Bacteria LARGE H /HPF Urine Casts PRESENT /LPF Urine Hyaline Casts 10-25 H /LPF Urine Mucus NEGATIVE /LPF Urine Culture Indicated YES Total Creatine Kinase 88 29-168 U/L Triglycerides Level 173 H <150 MG/DL Cholesterol Level 114 < 200 MG/DL LDL Cholesterol Direct 29 1-129 MG/DL VLDL Cholesterol 35 5-40 MG/DL HDL Cholesterol 45 40-60 MG/DL Test 06/15/22 22:34 06/15/22 23:59 06/16/22 04:45 06/16/22 08:02 Range/Units Glucometer 103 120 H 134 H 70-110 MG/DL White Blood Count 9.7 4.3-11.0 10^3/uL Red Blood Count 4.59 3.80-5.11 10^6/uL Hemoglobin 13.7 11.5-16.0 g/dL Hematocrit 45 35-52 % Mean Corpuscular Volume 98 80-99 fL Mean Corpuscular Hemoglobin 30 25-34 pg Mean Corpuscular Hemoglobin Concent 31 L 32-36 g/dL Red Cell Distribution Width 15.7 H 10.0-14.5 % Platelet Count 181 130-400 10^3/uL Mean Platelet Volume 10.0 9.0-12.2 fL Immature Granulocyte % (Auto) 0 % Neutrophils (%) (Auto) 90 H 42-75 % Lymphocytes (%) (Auto) 8 L 12-44 % Monocytes (%) (Auto) 1 0-12 % Eosinophils (%) (Auto) 0 0-10 % Basophils (%) (Auto) 0 0-10 % Neutrophils # (Auto) 8.8 H 1.8-7.8 10^3/uL Lymphocytes # (Auto) 0.7 L 1.0-4.0 10^3/uL Monocytes # (Auto) 0.1 0.0-1.0 10^3/uL Eosinophils # (Auto) 0.0 0.0-0.3 10^3/uL Basophils # (Auto) 0.0 0.0-0.1 10^3/uL Immature Granulocyte # (Auto) 0.0 0.0-0.1 10^3/uL Neutrophils % (Manual) 92 % Lymphocytes % (Manual) 7 % Monocytes % (Manual) 1 % Nucleated Red Blood Cells 2 Polychromasia SLIGHT Sodium Level 137 135-145 MMOL/L Potassium Level 6.1 H 3.6-5.0 MMOL/L Chloride Level 105 98-107 MMOL/L Carbon Dioxide Level 22 21-32 MMOL/L Anion Gap 10 5-14 MMOL/L Blood Urea Nitrogen 42 H 7-18 MG/DL Creatinine 1.78 H 0.60-1.30 MG/DL Estimat Glomerular Filtration Rate 29 BUN/Creatinine Ratio 24 Glucose Level 132 H 70-105 MG/DL Calcium Level 9.3 8.5-10.1 MG/DL Magnesium Level 2.5 H 1.6-2.4 MG/DL Test 06/16/22 11:43 Range/Units Glucometer 223 H 70-110 MG/DL Physical Exam Physical Exam Vital Signs Vital Signs - First Documented 06/15/22 06/15/22 06/15/22 15:55 16:23 19:01 Pulse 61 Resp 22 B/P (MAP) 124/81 (95) Pulse Ox 93 O2 Delivery OxyMask O2 Flow Rate 10.00 FiO2 80 Capillary Refill : Greater Than 3 Seconds Height, Weight, BMI Height: '" Weight: lbs. oz. kg; 33.24 BMI Method: General Appearance: No Apparent Distress, Obese Eyes: Bilateral Eye Normal Inspection, Bilateral Eye PERRL, Bilateral Eye EOMI HEENT: PERRL/EOMI, Pharynx Normal Neck: Normal Inspection, Supple Respiratory: No Respiratory Distress, Decreased Breath Sounds, Other (wearing BiPAP) Cardiovascular: Regular Rate, Rhythm, No Murmur Gastrointestinal: Normal Bowel Sounds, Non Tender, Soft Back: Normal Inspection, No CVA Tenderness, No Vertebral Tenderness Extremity: Non Tender, Swelling Neurologic/Psychiatric: Alert, Oriented x3, Normal Mood/Affect Skin: Normal Color, Warm/Dry Lymphatic: No Adenopathy A/P-Cardiology Admission Diagnosis Acute respiratory failure Acute renal failure Hypertension Congestive heart failure Assessment/Plan Acute respiratory failure, acute exacerbation of COPD Admitted to ICU, currently on BiPAP Hypercapnia, Appears to be improving, managed by medical team Minimal troponin elevation, repeat troponin was normal. Continue to monitor, probably secondary to hypoxemia Elevated BNP level, peripheral edema with renal failure Questionable underlying heart failure. Will evaluate 2D echo. Questionable history of coronary artery disease, patient reporting that 2 years ago she had a stress test then a cardiac catheterization did not require any stenting or intervention. Hypertension, restart home medication monitor blood pressure Acute on chronic renal insufficiency, monitor renal function. NEHEMIAS CHÁVEZ MD Jun 16, 2022 11:56
--- NOTE | 2022-06-16 12:10 | Tele-ICU Progress Note ---
Subjective Date Seen by a Provider: Jun 16, 2022 Time Seen by a Provider: 12:10 Subjective/Events-last exam (Tele-ICU Physician , Progress Note ) Available chart/ vitals / labs / Images reviewed Video assessment done using teleICU camera, rest of exam as per RN Discussed with RN Events overnight : Afebrile hemodynamically stable Respiratory - I/O = Drips: Pressors- no Consultants: Hospital course: A/P Acute hypoxix resp failure unclear etiology. CXR with small RLL alveolar opacities, but hypoxia is out of proportion to this finding. -BiPap initiated. - Possiblw PE : - Ddimer positive ( low titer ) - US LE neg and VQ pending -Echo already ordered, can eval -Empiric therapuetic lovenox given. Possible AECOPD - steroids initiated IV Suspected PNA - abx to cont SAMIR vs CKD -CPK WNL - improving with IVF -Avoid nephrotoxins and hypotension. Hyperkalemia - tx and follow - hypoglycemia - improved , follow Lines : pwriph , (Central Line Necessity Reviewed) Briones: + OG: Nutrition po Analgesia: Anxiety/ delirium VTE Prophylaxis: coni full full dose Stress Ulcer Prophylaxis: Plans in collaboration with bedside consultants and IM MDs. Discussed with RN to reach out if any questions or concerns A total of 31 minutes of critical care time was devoted to this patient today, required to treat and/or prevent further deterioration of critical care condition ( as above ) . I am remotely monitoring this patient from another state. I am unable to do the bedside exam, and history/physical and pertinent information is taken from other notes in the computer and bedside staff. I cannot take responsibility for the accuracy of this information. . Sepsis Event Evaluation Height, Weight, BMI Height: '" Weight: lbs. oz. kg; 33.24 BMI Method: Focused Exam Lactate Level 06/15/22 16:13: Lactic Acid Level 2.50*H 06/15/22 18:24: Lactic Acid Level 1.69 Exam Exam Patient acknowledged, consented, and participated in this virtual visit which was conducted using real time audio/video Vital Signs Date Time Temp Pulse Resp B/P (MAP) Pulse Ox O2 Delivery O2 Flow Rate FiO2 06/16/22 12:00 80 96 NIV Bilevel 70.00 06/16/22 11:00 82 98 NIV Bilevel 70.00 06/16/22 10:00 102 90 NIV Bilevel 70.00 06/16/22 09:00 72 16 94 NIV Bilevel 70.00 06/16/22 08:13 67 19 97 70.00 06/16/22 08:00 36.6 06/16/22 08:00 58 15 114/68 (83) 92 NIV Bilevel 70.00 06/16/22 07:00 62 06/16/22 07:00 61 17 122/63 (82) 93 NIV Bilevel 70.00 06/16/22 06:00 60 19 122/70 (87) 92 NIV Bilevel 70.00 06/16/22 05:00 62 15 131/72 (91) 91 NIV Bilevel 70.00 06/16/22 04:15 92 NIV Bilevel 70 06/16/22 04:00 58 18 109/60 (76) 90 NIV Bilevel 70.00 06/16/22 03:50 36.4 NIV Bilevel 70.00 06/16/22 03:00 55 16 105/58 (74) 93 NIV Bilevel 70.00 06/16/22 02:24 56 16 93 70.00 06/16/22 02:00 52 15 100/59 (73) 93 NIV Bilevel 70.00 06/16/22 01:00 58 14 111/59 (76) 95 NIV Bilevel 70.00 06/16/22 01:00 57 06/16/22 00:12 93 NIV Bilevel 70 06/16/22 00:12 NIV Bilevel 70.00 06/16/22 00:00 65 24 113/61 (78) 90 High Flow N/C 15.00 06/15/22 23:57 36.2 High Flow N/C 15.00 06/15/22 23:00 71 19 121/59 (79) 89 High Flow N/C 15.00 06/15/22 22:22 90 High Flow N/C 15.00 06/15/22 22:15 High Flow N/C 15.00 06/15/22 22:00 56 16 119/58 (78) 94 NIV Bilevel 60.00 06/15/22 21:00 57 16 103/56 (72) 94 NIV Bilevel 60.00 06/15/22 20:29 95 NIV Bilevel 60 06/15/22 20:25 53 06/15/22 20:00 51 17 94/60 (71) 93 NIV Bilevel 60.00 06/15/22 19:30 NIV Bilevel 60.00 06/15/22 19:30 NIV Bilevel 60.00 06/15/22 19:12 60 19 97 60.00 06/15/22 19:01 36.6 60 90 80 06/15/22 19:00 54 17 101/47 (65) 87 OxyMask 15.00 06/15/22 19:00 36.2 06/15/22 18:18 90 OxyMask 15.00 06/15/22 18:18 36.6 60 32 95/70 (78) 90 OxyMask 15.00 06/15/22 18:10 68 18 112/49 92 OxyMask 10.00 06/15/22 16:23 93 OxyMask 10.00 06/15/22 15:55 61 22 124/81 (95) 06/15/22 15:55 OxyMask 10.00 I & O 06/16/22 07:00 Intake Total 1930 ml Output Total 410 ml Balance 1520 ml Height & Weight Height: '" Weight: lbs. oz. kg; 33.24 BMI Method: General Appearance: No Apparent Distress, Obese HEENT: PERRL/EOMI, Pharynx Normal Neck: Normal Inspection, Supple Respiratory: No Respiratory Distress, Decreased Breath Sounds, Other (wearing BiPAP) Cardiovascular: Regular Rate, Rhythm, No Murmur Capillary Refill: Greater Than 3 Seconds Gastrointestinal: normal bowel sounds, non tender, soft, no organomegaly, no pulsatile mass Extremity: Non Tender, Swelling Neurologic/Psychiatric: Alert, Oriented x3, Normal Mood/Affect Skin: Normal Color, Warm/Dry Lymphatic: No Adenopathy Results Lab Laboratory Tests 06/15/22 16:13 06/15/22 20:54 06/16/22 04:45 Assessment/Plan Assessment/Plan 1 ENRIQUE BOLTON MD Jun 16, 2022 12:10
[2022-06-16 12:16] LABS: POTASSIUM 5.3 MMOL/L (3.6-5.0)
[2022-06-16 12:18] LABS: CALCIUM 9.1 MG/DL (8.5-10.1)
[2022-06-16 12:22] LABS: CREATININE SERUM 1.83 MG/DL (0.60-1.30)
[2022-06-16] MEDS ORDERED: ASPI-1238 PO (12:24)
[2022-06-16] MEDS ORDERED: CLN.1T PO (12:27)
--- NOTE | 2022-06-16 13:06 | Occupational Therapy Eval ---
OT Evaluation-General/PLF Medical Diagnosis Admission Date Jun 15, 2022 at 17:00 Medical Diagnosis: pneumonia/hypoxia Onset Date: Jun 15, 2022 Therapy Diagnosis Therapy Diagnosis: reduced adl status Precautions Precautions/Isolations: Fall Prevention, Standard Precautions Referral Physician: Daniel Juárez Reason: Evaluation/Treatment Medical History Pertinent Medical History: CAD, COPD, HTN, Renal Insufficiency Current History Pt presented to ER with SOA. Diagnosed with pneumonia and hypoxia. Per patient, she lives with her spouse in a single story home. She was indep with adls and her spouse completes all iadls. Pt was not using any AD at baseline. Reviewed History: Yes Social History Home: Single Level Current Living Status: Spouse Steps Into Home: 1 ADL-Prior Level of Function SCALE: Activities may be completed with or without assistive devices. 7-Hpfuxiyoxs-pcddqkb completes the activity by him/herself with no assistance from a helper. 5-Set-up or Clean-up Assistance-helper sets up or cleans up; patient completes activity. [place] assists only prior to or following the activity. 4-Supervision or Touching Assistance-helper provides verbal cues and/or touching/steadying and/or contact guard assistance as patient completes activity. Assistance may be provided throughout the activity or intermittently. 3-Partial/Moderate Assistance-helper does LESS THAN HALF the effort. [place] lifts, holds or supports trunk or limbs, but provides less than half the effort. 2-Substantial/Maximal Assistance-helper does MORE THAN HALF the effort. [place] lifts or holds trunk or limbs and provides more than half the effort. 7-Mktlbumka-poorhb does ALL the effort. Patient does none of the effort to complete the activity. Or, the assistance of 2 or more helpers is required for the patient to complete the activity. If activity was not attempted, code reason: 7-Patient Refused. 9-Not Applicable-not attempted and the patient did not perform the activity before the current illness, exacerbation or injury. 10-Not Attempted due to Environmental Limitations-(lack of equipment, weather restraints, etc.). 88-Not Attempted due to Medical Conditions or Safety Concerns. Self Care: Independent Functional Cognition: Independent DME/Equipment: Grab Bars, Shower, Tub/Shower Drive Self: Yes OT Current Status Subjective Pt denies pain, reports feeling better than when admitted Appearance Pt returned to supine in bed, all needs within reach at OT departure. Mental Status/Objective Patient Orientation: Person, Place, Time, Situation Attachments: Ramirez Catheter, IV, Oxygen (BiPap), SCD's, Telemetry Current Hand Dominance: Right Upper Extremity ROM WFL Upper Extremity Strength WFL ADL-Treatment On/Off Footwear (QC): 4 Toileting Hygiene (QC): 1 (ramirez catheter) Supine<>sit: SBA for multiple lines/tubes. Good sitting balance at EOB. Extra effort demonstrated when donning bilateral socks but no physical assistance required. She stood impulsively with SBA. She was able to take 4-5 side steps towards HOB with SBA. Activity limited due to BiPap and multiple lines/tubes. Pt c/o slight fatigue but No SOA exhibited during minimal activity. Education OT Patient Education: Purpose of tx/functional activities, Safety issues, Transfer techniques Teaching Recipient: Patient Teaching Methods: Discussion Response to Teaching: Verbalize Understanding, Return Demonstration OT Assisted Goals Assisted Goals Time Frame: Jun 23, 2022 Eating (QC): 6 Oral Hygiene (QC): 5 Toileting Hygiene (QC): 6 Lower Body Dressing (QC): 4 On/Off Footwear (QC): 5 1=Demonstrate adherence to instructed precautions during ADL tasks. 2=Patient will verbalize/demonstrate understanding of assistive devices/modifications for ADL. 3=Patient will improve strength/tolerance for activity to enable patient to perform ADL's. OT Education/Plan Problem List/Assessment Assessment: Decreased Activ Tolerance, Impaired Self-Care Skills Discharge Recommendations Plan/Recommendations: Continue POC Therapy Discharge Recommendati: Home & Family (pending progress) Treatment Plan/Plan of Care Treatment,Training & Education: Yes Patient would benefit from OT for education, treatment and training to promote independence in ADL's, mobility, safety and/or upper extremity function for ADL's. Plan of Care: ADL Retraining, Functional Mobility, UE Funct Exercise/Act Treatment Duration: Jun 23, 2022 Frequency: 3 times per week (3-5x/week) Estimated Hrs Per Day: .25 hour per day Agreement: Yes Rehab Potential: Good Time/GCodes Start Time: 11:55 Stop Time: 12:06 Total Time Billed (hr/min): 11 Billed Treatment Time 1 visit Guerita Boles OT Jun 16, 2022 13:06
[2022-06-16] MEDS: inSUlin ASPART (NovoLOG) 1 UNIT/0.01 ML (CHARGE PER UNIT) SC SCH ×4 (13:37→23:56)
[2022-06-16] MEDS: cefTRIAXone 2,000 MG in NS (IVPB) 50 ML IV SCH (18:50)
--- NOTE | 2022-06-16 20:44 | Progress Note - Hospitalist ---
Subjective HPI/CC On Admission Date Seen by Provider: Jun 16, 2022 Time Seen by Provider: 10:20 Subjective/Events-last exam She is sitting in her chair. She is comfortable. She denies shortness of breath. She denies pain. Focused Exam Lactate Level 06/15/22 16:13: Lactic Acid Level 2.50*H 06/15/22 18:24: Lactic Acid Level 1.69 Objective Exam Vital Signs Vital Signs Date Time Temp Pulse Resp B/P (MAP) Pulse Ox O2 Delivery O2 Flow Rate FiO2 06/16/22 20:10 94 Vapotherm 30.00 100 06/16/22 20:00 36.2 06/16/22 18:00 91 19 Capillary Refill : Greater Than 3 Seconds General Appearance: No Apparent Distress, Obese Respiratory: Lungs Clear, No Respiratory Distress Cardiovascular: Regular Rate, Rhythm, No Murmur Gastrointestinal: Normal Bowel Sounds, Soft Extremity: Normal Inspection, Pedal Edema Neurologic/Psychiatric: Alert, Normal Mood/Affect Skin: Normal Color, Warm/Dry Results/Procedures Lab Laboratory Tests 06/15/22 20:54 06/16/22 04:45 06/16/22 11:51 Patient resulted labs reviewed. Imaging: Reviewed Imaging Films, Reviewed Imaging Report Assessment/Plan Assessment and Plan Assess & Plan/Chief Complaint Severe sepsis due to pneumonia Lactic acidosis SAMIR on CKD Acute respiratory failure with hypoxia and hypercapnia COPD with acute exacerbation Elevated troponin Elevated BNP Lower extremity swelling Pulmonary HTN VQ negative Dopplers negative Stop therapeutic Lovenox Continue antibiotics Continue Solumedrol MAT protocol BiPAP as needed TeleICU consulted Cardiology consulted Echo with normal EF, grade I diastolic dysfunction, PASP 75-80 Echo with bubble study ordered to assess for shunt May need right heart cath Case discussed with Drs. Montesinos and Priscilla HTN HLD CAD Resume home meds Hold Losartan IV Hydralazine as needed Obesity Clincally significant, no acute management needs DVT prophylaxis: Lovenox Critical Care Critically Ill Patient Diagnosis/Problems Diagnosis/Problems (1) Severe sepsis Status: Acute (2) PNA (pneumonia) Status: Acute (3) Acute respiratory failure with hypoxia and hypercapnia Status: Acute (4) Lactic acidosis Status: Acute (5) Acute kidney injury superimposed on chronic kidney disease Status: Acute (6) Elevated d-dimer Status: Acute (7) COPD with acute exacerbation Status: Acute (8) Elevated troponin Status: Acute (9) Elevated brain natriuretic peptide (BNP) level Status: Acute (10) Swelling of both lower extremities Status: Acute (11) HTN (hypertension) Status: Chronic (12) HLD (hyperlipidemia) Status: Chronic (13) CAD (coronary artery disease) Status: Chronic (14) Obesity Status: Chronic (15) Former smoker Status: Chronic (16) Pulmonary hypertension Status: Acute DEBRA MILLER MD Jun 16, 2022 20:44
[2022-06-16] MEDS: meTOprolol SUCCINATE 100 MG (TOPROL XL) TAB PO SCH (20:59)
[2022-06-16] MEDS: PREGABALIN 25 MG (LYRICA) CAPSULE PO SCH (21:00)
[2022-06-16] MEDS: MIRABEGRON 25 MG TAB (MYRBETRIQ) PO SCH (21:00)
[2022-06-16] MEDS ORDERED: NON-FORMULARY MEDICATION 1 EA EA (Mirabegron (Myrbetriq) 25 MG) PO SCH (21:00)
[2022-06-17] VITALS (23 sets, daily range): BP systolic 99–145; BP diastolic 57–83
[2022-06-17] MEDS: RT-ALBUTEROL/IPRATROPIUM 3 ML (DUONEB) VIAL INH SCH ×4 (02:35→21:04)
[2022-06-17 05:12] LABS: BASOPHILS % (AUTO) 0 % (0-10); EOSINOPHILS % (AUTO) 0 % (0-10); HEMATOCRIT 40 % (35-52); HEMOGLOBIN 12.5 g/dL (11.5-16.0); LYMPHOCYTES # (AUTO) 0.4 10^3/uL (1.0-4.0); LYMPHOCYTES % (AUTO) 5 % (12-44); MEAN CORPUSCULAR HEMOGLOBIN 30 pg (25-34); MEAN CORPUSCULAR HGB CONC 31 g/dL (32-36); MEAN CORPUSCULAR VOLUME 95 fL (80-99); MEAN PLATELET VOLUME 9.8 fL (9.0-12.2); MONOCYTES # (AUTO) 0.1 10^3/uL (0.0-1.0); MONOCYTES % (AUTO) 1 % (0-12); NEUTROPHILS # (AUTO) 8.5 10^3/uL (1.8-7.8); NEUTROPHILS % (AUTO) 94 % (42-75); PLATELET COUNT 186 10^3/uL (130-400); WHITE BLOOD COUNT 9.1 10^3/uL (4.3-11.0)
[2022-06-17 05:23] LABS: POTASSIUM 4.9 MMOL/L (3.6-5.0)
[2022-06-17 05:24] LABS: CALCIUM 8.8 MG/DL (8.5-10.1)
[2022-06-17 05:29] LABS: CREATININE SERUM 1.36 MG/DL (0.60-1.30)
[2022-06-17 05:31] LABS: MAGNESIUM 2.1 MG/DL (1.6-2.4)
[2022-06-17] MEDS: KCL 20 MEQ TAB (K-DUR) PO SCH (05:31)
[2022-06-17] MEDS: MAGNESIUM 1 GM/100 ML IVPB 100 ML IV SCH (05:31)
[2022-06-17] MEDS: POTASSIUM CL 10MEQ/50ML IVPB 50 ML IV SCH (05:31)
[2022-06-17] MEDS: inSUlin ASPART (NovoLOG) 1 UNIT/0.01 ML (CHARGE PER UNIT) SC SCH ×5 (05:31→19:47)
[2022-06-17] MEDS: methylPREDNISolone 40 MG/ML (Solu-MEDROL) VIAL IV SCH ×3 (05:40→17:56)
[2022-06-17] MEDS: PREGABALIN 25 MG (LYRICA) CAPSULE PO SCH ×2 (08:16→21:44)
[2022-06-17] MEDS: DOCUSATE SODIUM 100 MG (COLACE) CAP PO SCH ×2 (08:16→21:10)
[2022-06-17] MEDS: ASPIRIN E.C. 81 MG (ECOTRIN) TAB PO SCH (08:16)
[2022-06-17] MEDS: amLODIPine 10 MG (NORVASC) TAB PO SCH (08:16)
[2022-06-17] MEDS: AZITHROMYCIN 250 MG TAB (ZITHROMAX) PO SCH (08:16)
[2022-06-17] MEDS: SENNOSIDES 8.6 MG (SENOKOT) TAB PO SCH ×2 (08:17→21:00)
[2022-06-17] MEDS: ENOXAPARIN INJECTION 30 MG/0.3 ML SYR SC SCH (08:17)
--- NOTE | 2022-06-17 09:21 | Tele-ICU Progress Note ---
Subjective Date Seen by a Provider: Jun 17, 2022 Time Seen by a Provider: 09:21 Subjective/Events-last exam Tele-ICU Physician , Progress Note ) Available chart/ vitals / labs / Images reviewed Video assessment done using teleICU camera, rest of exam as per RN Discussed with RN Events overnight : Afebrile hemodynamically stable Respiratory -dyspnea on vapotherm I/O = Drips: Pressors- no Consultants: Hospital course:, A/P CVS/HTN stable but has severe pulmonary hypertension on echo with pa pressure in the range of 75-80 mmhg. ef 60-65%. Possible rt heart failure CARDIOLGY to evaluate FOR RT HEART CATH. will hydrate and CTA chest tomorrow. d/w Dr. Sanchez. Revatio not available in the pharmacy Rhythem Echo but has severe pulmonary hypertension on echo with pa pressure in the range of 75-80 mmhg. ef 60-65% no shunt on echo Respiratory System. has RT LL INFILTRATE AND PULM. ARTERY IS DILATED. NO HX OF ZAC. continue rocephin GI Kidneys. CR 1.3 . UTI with E coli on rocephin HEME INSPECTOR RETURNED MATERIALS/MENTAL STATUS - Lines : periph , (Central Line Necessity Reviewed) Briones: OG: Nutrition: Analgesia: Anxiety/ delirium VTE Prophylaxis: lovenox Stress Ulcer Prophylaxis: Plans in collaboration with bedside consultants and IM MDs. Discussed with RN to reach out if any questions or concerns Sepsis Event Evaluation Height, Weight, BMI Height: '" Weight: lbs. oz. kg; 33.47 BMI Method: Focused Exam Lactate Level 06/15/22 16:13: Lactic Acid Level 2.50*H 06/15/22 18:24: Lactic Acid Level 1.69 Exam Exam Patient acknowledged, consented, and participated in this virtual visit which was conducted using real time audio/video Vital Signs Date Time Temp Pulse Resp B/P (MAP) Pulse Ox O2 Delivery O2 Flow Rate FiO2 06/17/22 09:00 80 94 Vapotherm 30.00 100.00 06/17/22 08:00 91 Vapotherm 30.00 100 06/17/22 08:00 81 15 143/78 (99) 97 Vapotherm 30.00 100.00 06/17/22 07:00 79 06/17/22 07:00 76 139/68 (91) 96 Vapotherm 30.00 100.00 06/17/22 06:00 76 145/83 (103) 96 Vapotherm 30.00 100.00 06/17/22 05:00 84 18 143/73 (96) 97 Vapotherm 30.00 100.00 06/17/22 04:00 79 13 138/68 (91) 95 Vapotherm 30.00 100.00 06/17/22 03:51 94 Vapotherm 30.00 100 06/17/22 03:00 37.0 Vapotherm 30.00 100.00 06/17/22 03:00 81 21 134/75 (94) 87 Vapotherm 30.00 100.00 06/17/22 02:36 94 Vapotherm 30.00 100 06/17/22 02:15 Vapotherm 30.00 100.00 06/17/22 02:00 78 129/72 (91) 93 Vapotherm 30.00 90.00 06/17/22 01:00 80 131/71 (91) 92 Vapotherm 30.00 90.00 06/17/22 01:00 84 06/17/22 00:13 36.8 Vapotherm 30.00 90.00 06/17/22 00:11 93 Vapotherm 30.00 90 06/17/22 00:00 85 139/79 (99) 93 Vapotherm 30.00 90.00 06/16/22 23:00 82 31 137/72 (93) 92 Vapotherm 30.00 90.00 06/16/22 22:21 Vapotherm 30.00 90.00 06/16/22 21:57 98 Vapotherm 30.00 100 06/16/22 21:00 88 33 122/72 (89) 95 Vapotherm 30.00 100.00 06/16/22 20:10 94 Vapotherm 30.00 100 06/16/22 20:00 94 Vapotherm 30.00 100 06/16/22 20:00 96 25 123/80 (94) 91 Vapotherm 30.00 100.00 06/16/22 20:00 36.2 06/16/22 19:00 Vapotherm 30.00 100.00 06/16/22 19:00 96 06/16/22 19:00 36.1 06/16/22 19:00 93 23 120/89 (99) 91 High Flow N/C 15.00 06/16/22 18:00 91 19 94 NIV Bilevel 70.00 06/16/22 17:00 88 20 () 90 High Flow N/C 15.00 06/16/22 16:00 82 12 88 High Flow N/C 15.00 06/16/22 16:00 36.7 06/16/22 16:00 92 NIV Bilevel 70 06/16/22 15:00 90 10 88 High Flow N/C 15.00 06/16/22 14:58 91 High Flow N/C 15.00 06/16/22 14:00 75 124/83 (97) 90 NIV Bilevel 70.00 06/16/22 13:00 68 21 95 NIV Bilevel 70.00 06/16/22 12:48 84 06/16/22 12:00 80 96 NIV Bilevel 70.00 06/16/22 12:00 90 High Flow N/C 15.00 06/16/22 12:00 37.5 06/16/22 11:00 82 98 NIV Bilevel 70.00 06/16/22 10:00 102 90 NIV Bilevel 70.00 I & O 06/17/22 07:00 Intake Total 2510 ml Output Total 1375 ml Balance 1135 ml Height & Weight Height: '" Weight: lbs. oz. kg; 33.47 BMI Method: General Appearance: No Apparent Distress, Obese HEENT: PERRL/EOMI, Pharynx Normal Neck: Normal Inspection, Supple Respiratory: Lungs Clear, No Respiratory Distress Cardiovascular: Regular Rate, Rhythm, No Murmur Capillary Refill: Greater Than 3 Seconds Gastrointestinal: normal bowel sounds, non tender, soft, no organomegaly, no pulsatile mass Extremity: Normal Inspection, Pedal Edema Neurologic/Psychiatric: Alert, Normal Mood/Affect Skin: Normal Color, Warm/Dry Lymphatic: No Adenopathy Results Lab Laboratory Tests 06/15/22 16:13 06/15/22 20:54 06/16/22 04:45 06/16/22 11:51 06/17/22 04:55 Assessment/Plan Assessment/Plan see above Critical Care: Critically Ill Patient Time spent with patient (mins): 25 ROBB LUZ MD Jun 17, 2022 09:21
--- NOTE | 2022-06-17 09:43 | Cardiology Progress Note ---
Subjective Date Seen by Provider: Jun 17, 2022 Time Seen by Provider: 09:39 Subjective/Events-last exam Patient was seen and evaluated at bedside, sitting comfortably Maintained on Vapotherm Review of Systems General: No Chills, No Night Sweats; Fatigue; No Malaise, No Appetite, No Other HEENT: No Head Aches, No Visual Changes, No Eye Pain, No Ear Pain, No Dysphasia , No Sinus Congestion, No Post Nasal Drip, No Sore Throat, No Other Pulmonary: Dyspnea; No Cough, No Pleuritic Chest Pain, No Other Cardiovascular: No: Chest Pain, Palpitations, Orthopnea, Paroxysmal Noc. Dyspnea, Edema, Lt Headedness, Other Focused Exam Lactate Level 06/15/22 16:13: Lactic Acid Level 2.50*H 06/15/22 18:24: Lactic Acid Level 1.69 Objective-Cardiology Exam Last Set of Vital Signs Vital Signs 06/17/22 06/17/22 06/17/22 03:00 08:00 09:00 Temp 37.0 Pulse 80 Resp 15 B/P (MAP) 143/78 (99) Pulse Ox 94 O2 Delivery Vapotherm O2 Flow Rate 30.00 100.00 FiO2 100 I&O Intake and Output 06/17/22 00:00 Intake Total 3510 ml Output Total 1125 ml Balance 2385 ml Intake Oral 1510 ml IV Total 2000 ml Output Urine Total 1125 ml General: Alert, Oriented X3, Cooperative HEENT: Atraumatic, PERRLA Neck: Supple, No JVD, No Thyromegaly Lungs: Clear to Auscultation, Normal Air Movement Heart: Regular Rate, Normal S1, Normal S2, No Murmurs Abdomen: Normal Bowel Sounds, Soft, No Tenderness, No Hepatosplenomegaly, No Masses Extremities: No Clubbing, No Cyanosis, No Edema, Normal Pulses, No Tenderness/Swelling Skin: No Rashes, No Breakdown, No Significant Lesion Neuro: Normal Gait, Normal Speech, Strength at 5/5 X4 Ext, Normal Tone, Sen sation Intact Psych/Mental Status: Mental Status NL, Mood NL Results Lab Laboratory Tests 06/16/22 11:51 06/17/22 04:55 A/P-Cardiology Admission Diagnosis Acute respiratory failure Acute renal failure Hypertension Congestive heart failure Assessment/Plan Acute respiratory failure, acute exacerbation of COPD Maintained on Vapotherm Managed by medical team Severe pulmonary hypertension, unknown etiology We will repeat 2D echo and evaluate bubble study. If no shunt was identified Will consider right heart cath and evaluation for therapeutic response to vasodi lator. This procedure will be considered once her pneumonia has resolved Sepsis and pneumonia, receiving antibiotic Managed by medical team Minimal troponin elevation, repeat troponin was normal. Continue to monitor, probably secondary to hypoxemia Elevated BNP level, peripheral edema with renal failure Acute on chronic left ventricular diastolic dysfunction, normal systolic function, NYHA class IV 2D echo done on June 16, 2022 showing normal left ventricular size with moderate left ventricular hypertrophy, systolic function is preserved ejection fraction 60 to 65%, grade 2 diastolic dysfunction, enlarged right atrium and dilated right heart chambers. Severe pulmonary hypertension with PA pressure 75 to 80 mmHg. Planning to repeat 2D echo today. Questionable history of coronary artery disease, patient reporting that 2 years ago she had a stress test then a cardiac catheterization did not require any stenting or intervention. Continue to monitor Hypertension, restart home medication monitor blood pressure Acute on chronic renal insufficiency, monitor renal function. NEHEMIAS CHÁVEZ MD Jun 17, 2022 09:43
--- NOTE | 2022-06-17 11:01 | Physical Therapy Daily Note ---
PT Daily Note-Current Subjective Pt. in bed, states she would like to get up, "my back is killing me!" No objective pain rating given when asked. Pain Section J - Health Conditions 1. Rarely or not at all 2. Occasionally 3. Frequently 4. Almost constantly 8. Unable to answer Pain Effect on Sleep: 1 Pain Interference with Therapy: 1 Pain Interference w/Day-to-Day: 1 Mental Status Patient Orientation: Person, Place, Time, Situation Attachments: Oxygen, Briones Catheter, IV Transfers SCALE: Activities may be completed with or without assistive devices. 2-Fspqxpcbug-bpmqvmg completes the activity by him/herself with no assistance from a helper. 5-Set-up or Clean-up Assistance-helper sets up or cleans up; patient completes activity. [place] assists only prior to or following the activity. 4-Supervision or Touching Assistance-helper provides verbal cues and/or touching/steadying and/or contact guard assistance as patient completes activity. Assistance may be provided throughout the activity or intermittently. 3-Partial/Moderate Assistance-helper does LESS THAN HALF the effort. [place] lifts, holds or supports trunk or limbs, but provides less than half the effort. 2-Substantial/Maximal Assistance-helper does MORE THAN HALF the effort. [place] lifts or holds trunk or limbs and provides more than half the effort. 7-Hauekezhf-zptqxf does ALL the effort. Patient does none of the effort to complete the activity. Or, the assistance of 2 or more helpers is required for the patient to complete the activity. If activity was not attempted, code reason: 7-Patient Refused. 9-Not Applicable-not attempted and the patient did not perform the activity before the current illness, exacerbation or injury. 10-Not Attempted due to Environmental Limitations-(lack of equipment, weather restraints, etc.). 88-Not Attempted due to Medical Conditions or Safety Concerns. Lying to Sitting/Side of Bed(Q: 6 Sit to Stand (QC): 6 Chair/Wir-kw-Eoyzv Xfer(QC): 4 Exercises Seated Therapy Exercises: Ankle pumps, Long arc quads Standing: Heel/toe raises, Marching Standing Reps: 15 Treatments standing exercises, up to chair. Pt. limited in gait ability due to O2 machines and O2 sats dropping to 80s rapidly. Assessment Current Status: Good Progress Pt. does very well with transfers and is steady on her feet with use of FWW. Pt. fatigues very quickly and O2 sats drop frequently to 80s before rising >91% with seated rest and cues for breathing. Pt. up in chair post session with call light and all needs met. PT Custodial Goals Service Rig Operator Goals PT Custodial Goals Time Frame: Jun 24, 2022 Roll Left & Right (QC): 6 Sit to Lying (QC): 6 Lying-Sitting on Side/Bed(QC): 6 Sit to Stand (QC): 6 Chair/Qxw-jj-Tnyzn Xfer(QC): 6 Toilet Transfer (QC): 6 Walk 10 feet (QC): 6 Walk 50ft with 2 Turns (QC): 6 Walk 150 ft (QC): 6 PT Plan Treatment/Plan Treatment Plan: Continue Plan of Care Treatment Plan: Bed Mobility, Education, Functional Activity Susan, Functional Strength, Gait, Safety, Therapeutic Exercise, Transfers Treatment Duration: Jun 24, 2022 Frequency: 6 times per week Estimated Hrs Per Day: .25 hour per day Patient and/or Family Agrees t: Yes Time/GCodes Time In: 0850 Time Out: 09 Total Billed Treatment Time: 15 Total Billed Treatment 1, FA 15' BOB COLE PT Jun 17, 2022 11:01
[2022-06-17] MEDS: SILDENAFIL 20 MG (REVATIO) TAB PO SCH ×2 (12:54→21:44)
--- NOTE | 2022-06-17 16:18 | Progress Note - Hospitalist ---
Subjective HPI/CC On Admission Date Seen by Provider: Jun 17, 2022 Time Seen by Provider: 09:55 Subjective/Events-last exam She is sitting in her chair. She denies shortness of breath. She denies chest pain. She ate breakfast. She did not get much sleep. Focused Exam Lactate Level 06/15/22 16:13: Lactic Acid Level 2.50*H 06/15/22 18:24: Lactic Acid Level 1.69 Objective Exam Vital Signs Vital Signs Date Time Temp Pulse Resp B/P (MAP) Pulse Ox O2 Delivery O2 Flow Rate FiO2 06/17/22 16:00 68 116/75 (89) 92 Vapotherm 25.00 50.00 06/17/22 15:56 36.0 06/17/22 15:47 50 06/17/22 14:00 23 Capillary Refill : Greater Than 3 Seconds General Appearance: No Apparent Distress, Obese Respiratory: Lungs Clear, No Respiratory Distress Cardiovascular: Regular Rate, Rhythm, No Murmur Gastrointestinal: Normal Bowel Sounds, Soft Extremity: Normal Inspection, Pedal Edema Neurologic/Psychiatric: Alert, Normal Mood/Affect Results/Procedures Lab Laboratory Tests 06/17/22 04:55 Patient resulted labs reviewed. Imaging: Reviewed Imaging Films, Reviewed Imaging Report Assessment/Plan Assessment and Plan Assess & Plan/Chief Complaint Severe sepsis due to pneumonia Lactic acidosis SAMIR on CKD Acute respiratory failure with hypoxia and hypercapnia COPD with acute exacerbation Elevated troponin Elevated BNP Lower extremity swelling Pulmonary HTN Continue antibiotics Continue Solumedrol MAT protocol Vapotherm as needed TeleICU following Cardiology following Echo with normal EF, grade I diastolic dysfunction, PASP 75-80 Echo with bubble study negative for shunt Consider right heart cath Begin Sildenafil CTA Chest tomorrow Case discussed with Drs. Montesinos and Jose HTN HLD CAD Continue home meds Hold Losartan IV Hydralazine as needed Obesity Clincally significant, no acute management needs DVT prophylaxis: Lovenox Critical Care Critically Ill Patient Diagnosis/Problems Diagnosis/Problems (1) Severe sepsis Status: Acute (2) PNA (pneumonia) Status: Acute (3) Acute respiratory failure with hypoxia and hypercapnia Status: Acute (4) Lactic acidosis Status: Acute (5) Acute kidney injury superimposed on chronic kidney disease Status: Acute (6) Elevated d-dimer Status: Acute (7) COPD with acute exacerbation Status: Acute (8) Elevated troponin Status: Acute (9) Elevated brain natriuretic peptide (BNP) level Status: Acute (10) Swelling of both lower extremities Status: Acute (11) HTN (hypertension) Status: Chronic (12) HLD (hyperlipidemia) Status: Chronic (13) CAD (coronary artery disease) Status: Chronic (14) Obesity Status: Chronic (15) Former smoker Status: Chronic (16) Pulmonary hypertension Status: Acute DEBRA MILLER MD Jun 17, 2022 16:18
[2022-06-17] MEDS: NS IV 1000 ML 1,000 ML IV SCH (17:56)
[2022-06-17] MEDS: cefTRIAXone 2,000 MG in NS (IVPB) 50 ML IV SCH (17:56)
[2022-06-17] MEDS: MIRABEGRON 25 MG TAB (MYRBETRIQ) PO SCH (21:44)
[2022-06-17] MEDS: meTOprolol SUCCINATE 100 MG (TOPROL XL) TAB PO SCH (21:44)
[2022-06-18] VITALS (22 sets, daily range): BP systolic 106–169; BP diastolic 55–122
[2022-06-18] MEDS: methylPREDNISolone 40 MG/ML (Solu-MEDROL) VIAL IV SCH ×4 (00:52→18:02)
[2022-06-18] MEDS: RT-ALBUTEROL/IPRATROPIUM 3 ML (DUONEB) VIAL INH SCH ×4 (03:14→21:54)
[2022-06-18] MEDS: inSUlin ASPART (NovoLOG) 1 UNIT/0.01 ML (CHARGE PER UNIT) SC SCH ×6 (04:00→20:00)
[2022-06-18 04:07] LABS: BASOPHILS % (AUTO) 0 % (0-10); EOSINOPHILS % (AUTO) 0 % (0-10); HEMATOCRIT 41 % (35-52); HEMOGLOBIN 12.6 g/dL (11.5-16.0); LYMPHOCYTES # (AUTO) 0.4 10^3/uL (1.0-4.0); LYMPHOCYTES % (AUTO) 4 % (12-44); MEAN CORPUSCULAR HEMOGLOBIN 30 pg (25-34); MEAN CORPUSCULAR HGB CONC 31 g/dL (32-36); MEAN CORPUSCULAR VOLUME 97 fL (80-99); MEAN PLATELET VOLUME 9.9 fL (9.0-12.2); MONOCYTES # (AUTO) 0.2 10^3/uL (0.0-1.0); MONOCYTES % (AUTO) 2 % (0-12); NEUTROPHILS # (AUTO) 9.1 10^3/uL (1.8-7.8); NEUTROPHILS % (AUTO) 93 % (42-75); PLATELET COUNT 197 10^3/uL (130-400); WHITE BLOOD COUNT 9.8 10^3/uL (4.3-11.0)
[2022-06-18 04:25] LABS: POTASSIUM 5.2 MMOL/L (3.6-5.0)
[2022-06-18 04:26] LABS: CALCIUM 8.8 MG/DL (8.5-10.1)
[2022-06-18 04:30] LABS: CREATININE SERUM 1.27 MG/DL (0.60-1.30)
[2022-06-18 04:33] LABS: MAGNESIUM 2.1 MG/DL (1.6-2.4)
[2022-06-18] MEDS: POTASSIUM CL 10MEQ/50ML IVPB 50 ML IV SCH (06:00)
[2022-06-18] MEDS: MAGNESIUM 1 GM/100 ML IVPB 100 ML IV SCH (06:00)
[2022-06-18] MEDS: KCL 20 MEQ TAB (K-DUR) PO SCH (06:00)
[2022-06-18] MEDS: ASPIRIN E.C. 81 MG (ECOTRIN) TAB PO SCH (08:04)
[2022-06-18] MEDS: amLODIPine 10 MG (NORVASC) TAB PO SCH (08:04)
[2022-06-18] MEDS: NS IV 1000 ML 1,000 ML IV SCH ×2 (08:04→23:05)
[2022-06-18] MEDS: PREGABALIN 25 MG (LYRICA) CAPSULE PO SCH ×2 (08:04→21:23)
[2022-06-18] MEDS: SENNOSIDES 8.6 MG (SENOKOT) TAB PO SCH ×2 (08:04→21:00)
[2022-06-18] MEDS: AZITHROMYCIN 250 MG TAB (ZITHROMAX) PO SCH (08:04)
[2022-06-18] MEDS: DOCUSATE SODIUM 100 MG (COLACE) CAP PO SCH ×2 (08:04→21:00)
[2022-06-18] MEDS: ENOXAPARIN INJECTION 30 MG/0.3 ML SYR SC SCH (08:04)
[2022-06-18] MEDS: SILDENAFIL 20 MG (REVATIO) TAB PO SCH ×3 (08:04→21:23)
--- NOTE | 2022-06-18 09:13 | Tele-ICU Progress Note ---
Subjective Date Seen by a Provider: Jun 18, 2022 Time Seen by a Provider: 06:50 Subjective/Events-last exam This virtual visit was conducted using real time audio/video. Thank you for asking us to see this patient for respiratory insufficiency due to CAP with sepsis, AECOPD. Found to have severe PH w PASP 75-80 mm Hg. Recent events: increased O2 needs. SH: smoking history: former PE: Resting comfortably on camera. VSS. O2 sat 93% on VT 30 LPM, 60%. HEENT: No obvious masses, adenopathy or JVD. Chestdiminished on auscultation. CV: RRR S1 S2 No murmur or added sounds. Abd: Non-tender. Bowel sounds Y. : Unremarkable. Briones Y. TELECOMMUNICATIONS NETWORK ENGINEER/psychiatric: Grossly intact. No obvious focal findings. Extremities: Trace edema. Capillary refill < 3 seconds. Skin: unremarkable. Results: Elevated K 5.2, D-dimer 1.05., BUN 30, BG 143. CXR: Hyperinflated, B int. infilts. Available chart/ vitals / labs / images reviewed. Video assessment done using teleICU camera, rest of exam as per RN. A/P: Respiratory insufficiency: Continue present management with VT, Duon., medrol. Monitor for increasing oxygenation needs and/or need for intubation. Critical Care: critically ill patient. Cont. abx, norv., ASA, statin, metop., revatio, SSI, Ross. Possible CTAC today. Discussed with RAMÓN Manuel. Asked RN to reach out to eICU if any questions or concerns later. Time spent with patient/coordination of care with other health professionals (mins): 32 Sepsis Event Evaluation Height, Weight, BMI Height: '" Weight: lbs. oz. kg; 33.66 BMI Method: Focused Exam Lactate Level 06/15/22 16:13: Lactic Acid Level 2.50*H 06/15/22 18:24: Lactic Acid Level 1.69 Exam Exam Patient acknowledged, consented, and participated in this virtual visit which was conducted using real time audio/video Vital Signs Date Time Temp Pulse Resp B/P (MAP) Pulse Ox O2 Delivery O2 Flow Rate FiO2 06/18/22 08:08 90 Vapotherm 30.00 60 06/18/22 08:00 80 26 126/69 (88) 91 Vapotherm 30.00 45.00 06/18/22 07:04 93 Vapotherm 30.00 60 06/18/22 07:00 68 26 127/68 (87) 91 Vapotherm 30.00 45.00 06/18/22 07:00 71 06/18/22 06:00 76 20 169/106 (127) 91 Vapotherm 30.00 45.00 06/18/22 05:00 75 19 154/122 (133) 94 Vapotherm 30.00 45.00 06/18/22 04:00 76 26 131/79 (96) 91 Vapotherm 30.00 45.00 06/18/22 04:00 92 Vapotherm 30.00 60 06/18/22 03:15 92 Vapotherm 20.00 60 06/18/22 03:00 79 16 122/70 (87) 90 Vapotherm 30.00 45.00 06/18/22 02:00 88 16 119/70 (86) 90 Vapotherm 30.00 45.00 06/18/22 01:00 85 06/18/22 01:00 78 16 117/64 (81) 92 Vapotherm 30.00 45.00 06/18/22 00:00 85 113/61 (78) 91 Vapotherm 30.00 45.00 06/18/22 00:00 91 Vapotherm 30.00 60 06/17/22 23:00 82 121/65 (83) 92 Vapotherm 30.00 45.00 06/17/22 22:06 Vapotherm 30.00 45.00 06/17/22 22:00 86 17 114/68 (83) 93 Vapotherm 25.00 40.00 06/17/22 21:09 Vapotherm 25.00 60.00 06/17/22 21:04 86 Vapotherm 20.00 40 06/17/22 21:00 87 17 112/67 (82) 92 Vapotherm 25.00 40.00 06/17/22 20:00 92 Vapotherm 20.00 40 06/17/22 20:00 78 105/74 (84) 92 Vapotherm 25.00 40.00 06/17/22 19:55 36.4 06/17/22 19:29 93 Vapotherm 20.00 40 06/17/22 19:00 78 06/17/22 19:00 85 99/67 (78) 91 Vapotherm 25.00 40.00 06/17/22 18:00 75 110/57 (74) 90 Vapotherm 25.00 40.00 06/17/22 17:00 75 123/69 (87) 90 Vapotherm 25.00 40.00 06/17/22 16:18 Vapotherm 25.00 40.00 06/17/22 16:00 68 116/75 (89) 92 Vapotherm 25.00 50.00 06/17/22 15:56 36.0 06/17/22 15:53 Vapotherm 25.00 50.00 06/17/22 15:47 95 Vapotherm 25.00 50 06/17/22 15:43 96 Vapotherm 30.00 55 06/17/22 15:39 93 Vapotherm 30.00 55 06/17/22 15:10 Vapotherm 30.00 55.00 06/17/22 15:00 76 129/58 (81) Vapotherm 30.00 60.00 06/17/22 14:00 73 23 126/81 (96) 96 Vapotherm 30.00 60.00 06/17/22 13:00 66 15 128/75 (92) 94 Vapotherm 30.00 60.00 06/17/22 12:45 68 06/17/22 12:23 Vapotherm 30.00 60.00 06/17/22 12:00 71 18 127/72 (90) 95 Vapotherm 30.00 70.00 06/17/22 12:00 94 Vapotherm 30.00 60 06/17/22 11:00 72 20 124/72 (89) 92 Vapotherm 30.00 70.00 06/17/22 10:48 Vapotherm 30.00 70.00 06/17/22 10:00 90 25 129/77 (94) 97 Vapotherm 30.00 90.00 06/17/22 09:54 Vapotherm 30.00 90.00 06/17/22 09:53 98 Vapotherm 30.00 90 06/17/22 09:44 100 Vapotherm 40.00 100 I & O 06/18/22 07:00 Intake Total 1200 ml Output Total 1550 ml Balance -350 ml Height & Weight Height: '" Weight: lbs. oz. kg; 33.66 BMI Method: General Appearance: No Apparent Distress, Obese HEENT: PERRL/EOMI, Pharynx Normal Neck: Normal Inspection, Supple Respiratory: Lungs Clear, No Respiratory Distress Cardiovascular: Regular Rate, Rhythm, No Murmur Capillary Refill: Greater Than 3 Seconds Gastrointestinal: normal bowel sounds, non tender, soft, no organomegaly, no pulsatile mass Extremity: Normal Inspection, Pedal Edema Neurologic/Psychiatric: Alert, Normal Mood/Affect Skin: Normal Color, Warm/Dry Lymphatic: No Adenopathy Results Lab Laboratory Tests 06/16/22 11:51 06/17/22 04:55 06/18/22 03:47 Assessment/Plan Assessment/Plan See free text. Critical Care: Critically Ill Patient BOO GALDAMEZ MD Jun 18, 2022 09:13
--- NOTE | 2022-06-18 10:18 | Cardiology Progress Note ---
Subjective Date Seen by Provider: Jun 18, 2022 Time Seen by Provider: 10:17 Subjective/Events-last exam Patient was seen at bedside, sitting comfortably, still on Vapotherm Review of Systems General: No Chills, No Night Sweats; Fatigue, Malaise; No Appetite, No Other HEENT: No Head Aches, No Visual Changes, No Eye Pain, No Ear Pain, No Dysphasia, No Sinus Congestion, No Post Nasal Drip, No Sore Throat, No Other Pulmonary: Dyspnea; No Cough, No Pleuritic Chest Pain, No Other Cardiovascular: No: Chest Pain, Palpitations, Orthopnea, Paroxysmal Noc. Dyspnea, Edema, Lt Headedness, Other Focused Exam Lactate Level 06/15/22 16:13: Lactic Acid Level 2.50*H 06/15/22 18:24: Lactic Acid Level 1.69 Objective-Cardiology Exam Last Set of Vital Signs Vital Signs 06/17/22 06/18/22 06/18/22 06/18/22 19:55 08:00 08:08 10:00 Temp 36.4 Pulse 67 Resp 20 B/P (MAP) 126/69 (88) Pulse Ox 93 O2 Delivery Vapotherm O2 Flow Rate 30.00 45.00 FiO2 60 I&O Intake and Output 06/18/22 00:00 Intake Total 2460 ml Output Total 1175 ml Balance 1285 ml Intake Oral 1410 ml IV Total 1050 ml Output Urine Total 1175 ml # Bowel Movements 1 General: Alert, Oriented X3, Cooperative HEENT: Atraumatic, PERRLA Neck: Supple, No JVD, No Thyromegaly Lungs: Clear to Auscultation, Normal Air Movement Heart: Regular Rate, Normal S1, Normal S2, No Murmurs Abdomen: Normal Bowel Sounds, Soft, No Tenderness, No Hepatosplenomegaly, No Masses Extremities: No Clubbing, No Cyanosis, No Edema, Normal Pulses, No Tenderness/Swelling Skin: No Rashes, No Breakdown, No Significant Lesion Neuro: Normal Gait, Normal Speech, Strength at 5/5 X4 Ext, Normal Tone, Sensation Intact Psych/Mental Status: Mental Status NL, Mood NL Results Lab Laboratory Tests 06/18/22 03:47 A/P-Cardiology Admission Diagnosis Acute respiratory failure Acute renal failure Hypertension Congestive heart failure Assessment/Plan Acute respiratory failure, acute exacerbation of COPD Maintained on Vapotherm Managed by medical team Severe pulmonary hypertension, unknown etiology No shunt was identified by bubble as well as echocardiogram Planning to evaluate CT angiogram Will consider right heart catheterization and evaluating response to vasodilato rs Sepsis and pneumonia, receiving antibiotic Managed by medical team Minimal troponin elevation, repeat troponin was normal. Continue to monitor, probably secondary to hypoxemia Elevated BNP level, peripheral edema with renal failure Acute on chronic left ventricular diastolic dysfunction, normal systolic function, NYHA class IV 2D echo done on June 16, 2022 showing normal left ventricular size with moderate left ventricular hypertrophy, systolic function is preserved ejection fraction 60 to 65%, grade 2 diastolic dysfunction, enlarged right atrium and dilated right heart chambers. Severe pulmonary hypertension with PA pressure 75 to 80 mmHg. Planning to repeat 2D echo today. Questionable history of coronary artery disease, patient reporting that 2 years ago she had a stress test then a cardiac catheterization did not require any stenting or intervention. Continue to monitor Hypertension, restart home medication monitor blood pressure Acute on chronic renal insufficiency, monitor renal function. NEHEMIAS CHÁVEZ MD Jun 18, 2022 10:18
[2022-06-18] MEDS ORDERED: IOHEXOL 350 MG/ML 100 ML (OMNIPAQUE 350) VIAL IV ONE (17:00)
[2022-06-18] MEDS ORDERED: NS 100 ML (IVPB) BAG IV ONE (17:00)
[2022-06-18] MEDS ORDERED: HOLD METFORMIN - RECEIVED CONTRAST 20 ML VIAL IV SCH (17:00)
--- NOTE | 2022-06-18 17:39 | Diagnostic Imaging Report ---
EXAMINATION: CT angiography of the chest. TECHNIQUE: Contrast enhanced thin section helical images were obtained through the chest with intravenous contrast timed for the optimal opacification of the arterial structures per CTA protocol. Post-processing, reconstructions and interpretation of angiographic images of the vessels was performed. 3D MIP reconstructions were performed and reviewed. All CT scans use one or more of the following dose optimizing techniques: automated exposure control, MA and/or KvP adjustment based on a patient size and exam type, or iterative reconstruction. HISTORY: Respiratory distress. COMPARISON: None available. FINDINGS: There is no pulmonary embolism. There is no edema or pneumonia. There are small bilateral pleural effusions with overlying atelectasis. There is likely bronchomalacia of the right mainstem bronchus and bronchus intermedius. No pneumothorax. No suspicious nodules. There is no axillary or supraclavicular lymphadenopathy. There is no mediastinal lymphadenopathy. Heart size is normal. There are mild coronary artery calcifications. No pericardial effusion. Aorta is normal in caliber. Limited views of the upper abdomen show soft tissue thickening of the cardia of the stomach. There are no suspicious osseus lesions. IMPRESSION: 1. No pulmonary embolism. 2. Small bilateral pleural effusions and overlying atelectasis. 3. 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 4. Soft tissue thickening of the cardia of the stomach. When patient condition permits, endoscopy is recommended to evaluate for mass. Dictated by: Dictated on workstation # [id number]
[2022-06-18] MEDS: cefTRIAXone 2,000 MG in NS (IVPB) 50 ML IV SCH (18:03)
--- NOTE | 2022-06-18 20:25 | Progress Note - Hospitalist ---
Subjective HPI/CC On Admission Date Seen by Provider: Jun 18, 2022 Time Seen by Provider: 10:20 Subjective/Events-last exam She is not short of breath. She is feeling well. She ate breakfast. She has no complaints. Objective Exam Vital Signs Vital Signs Date Time Temp Pulse Resp B/P (MAP) Pulse Ox O2 Delivery O2 Flow Rate FiO2 06/18/22 18:00 73 24 123/95 (104) 96 High Flow N/C 10.00 06/18/22 14:26 30 06/17/22 19:55 36.4 Capillary Refill : Greater Than 3 Seconds General Appearance: No Apparent Distress, Obese Respiratory: Lungs Clear, No Respiratory Distress Cardiovascular: Regular Rate, Rhythm, No Murmur Gastrointestinal: Normal Bowel Sounds, Soft Extremity: Normal Inspection, No Pedal Edema Neurologic/Psychiatric: Alert, Normal Mood/Affect Skin: Normal Color, Warm/Dry Results/Procedures Lab Laboratory Tests 06/18/22 03:47 Patient resulted labs reviewed. Imaging: Reviewed Imaging Films, Reviewed Imaging Report Assessment/Plan Assessment and Plan Assess & Plan/Chief Complaint Severe sepsis due to pneumonia Lactic acidosis SAMIR on CKD Acute respiratory failure with hypoxia and hypercapnia COPD with acute exacerbation Elevated troponin Elevated BNP Lower extremity swelling Pulmonary HTN Continue antibiotics Continue Solumedrol MAT protocol Vapotherm as needed, weaning as able TeleICU following Cardiology following Echo with normal EF, grade I diastolic dysfunction, PASP 75-80 Echo with bubble study negative for shunt Continue Sildenafil CTA Chest today Consider right heart cath Case discussed with Drs. Yamel Larios HTN HLD CAD Continue home meds Hold Losartan IV Hydralazine as needed Obesity Clincally significant, no acute management needs DVT prophylaxis: Lovenox Critical Care Critically Ill Patient Diagnosis/Problems Diagnosis/Problems (1) Severe sepsis Status: Acute (2) PNA (pneumonia) Status: Acute (3) Acute respiratory failure with hypoxia and hypercapnia Status: Acute (4) Lactic acidosis Status: Acute (5) Acute kidney injury superimposed on chronic kidney disease Status: Acute (6) Elevated d-dimer Status: Acute (7) COPD with acute exacerbation Status: Acute (8) Elevated troponin Status: Acute (9) Elevated brain natriuretic peptide (BNP) level Status: Acute (10) Swelling of both lower extremities Status: Acute (11) HTN (hypertension) Status: Chronic (12) HLD (hyperlipidemia) Status: Chronic (13) CAD (coronary artery disease) Status: Chronic (14) Obesity Status: Chronic (15) Former smoker Status: Chronic (16) Pulmonary hypertension Status: Acute DEBRA MILLER MD Jun 18, 2022 20:25
[2022-06-18] MEDS: meTOprolol SUCCINATE 100 MG (TOPROL XL) TAB PO SCH (21:23)
[2022-06-18] MEDS: MIRABEGRON 25 MG TAB (MYRBETRIQ) PO SCH (21:23)
[2022-06-19] VITALS (8 sets, daily range): BP systolic 98–125; BP diastolic 48–67
[2022-06-19] MEDS: methylPREDNISolone 40 MG/ML (Solu-MEDROL) VIAL IV SCH ×5 (00:42→23:53)
[2022-06-19] MEDS: RT-ALBUTEROL/IPRATROPIUM 3 ML (DUONEB) VIAL INH SCH ×4 (03:15→21:48)
[2022-06-19] MEDS: inSUlin ASPART (NovoLOG) 1 UNIT/0.01 ML (CHARGE PER UNIT) SC SCH ×7 (04:00→23:32)
[2022-06-19 05:50] LABS: BASOPHILS % (AUTO) 0 % (0-10); EOSINOPHILS % (AUTO) 0 % (0-10); HEMATOCRIT 44 % (35-52); HEMOGLOBIN 13.4 g/dL (11.5-16.0); LYMPHOCYTES # (AUTO) 0.4 10^3/uL (1.0-4.0); LYMPHOCYTES % (AUTO) 5 % (12-44); MEAN CORPUSCULAR HEMOGLOBIN 30 pg (25-34); MEAN CORPUSCULAR HGB CONC 31 g/dL (32-36); MEAN CORPUSCULAR VOLUME 97 fL (80-99); MEAN PLATELET VOLUME 9.8 fL (9.0-12.2); MONOCYTES # (AUTO) 0.2 10^3/uL (0.0-1.0); MONOCYTES % (AUTO) 2 % (0-12); NEUTROPHILS # (AUTO) 7.6 10^3/uL (1.8-7.8); NEUTROPHILS % (AUTO) 92 % (42-75); PLATELET COUNT 197 10^3/uL (130-400); WHITE BLOOD COUNT 8.3 10^3/uL (4.3-11.0)
[2022-06-19] MEDS: POTASSIUM CL 10MEQ/50ML IVPB 50 ML IV SCH (06:00)
[2022-06-19] MEDS: KCL 20 MEQ TAB (K-DUR) PO SCH (06:00)
[2022-06-19] MEDS: MAGNESIUM 1 GM/100 ML IVPB 100 ML IV SCH (06:00)
[2022-06-19 06:16] LABS: CALCIUM 8.8 MG/DL (8.5-10.1); CREATININE SERUM 1.34 MG/DL (0.60-1.30); MAGNESIUM 1.8 MG/DL (1.6-2.4); POTASSIUM 4.7 MMOL/L (3.6-5.0)
[2022-06-19] MEDS: DOCUSATE SODIUM 100 MG (COLACE) CAP PO SCH ×2 (07:28→21:28)
[2022-06-19] MEDS: SENNOSIDES 8.6 MG (SENOKOT) TAB PO SCH ×2 (07:28→21:28)
[2022-06-19] MEDS: amLODIPine 10 MG (NORVASC) TAB PO SCH (08:24)
[2022-06-19] MEDS: ASPIRIN E.C. 81 MG (ECOTRIN) TAB PO SCH (08:39)
[2022-06-19] MEDS: ENOXAPARIN INJECTION 30 MG/0.3 ML SYR SC SCH (08:39)
[2022-06-19] MEDS: AZITHROMYCIN 250 MG TAB (ZITHROMAX) PO SCH (08:39)
[2022-06-19] MEDS: PREGABALIN 25 MG (LYRICA) CAPSULE PO SCH ×2 (08:39→21:27)
--- NOTE | 2022-06-19 09:02 | Cardiology Progress Note ---
Subjective Date Seen by Provider: Jun 19, 2022 Time Seen by Provider: 09:01 Subjective/Events-last exam Patient was seen at bedside, sitting comfortably, denied any chest pain Still on oxygen Review of Systems General: No Chills, No Night Sweats, No Fatigue, No Malaise, No Appetite, No Other HEENT: No Head Aches, No Visual Changes, No Eye Pain, No Ear Pain, No Dysph dalila, No Sinus Congestion, No Post Nasal Drip, No Sore Throat, No Other Pulmonary: Dyspnea; No Cough, No Pleuritic Chest Pain, No Other Cardiovascular: No: Chest Pain, Palpitations, Orthopnea, Paroxysmal Noc. Dyspnea, Edema, Lt Headedness, Other Objective-Cardiology Exam Last Set of Vital Signs Vital Signs 06/18/22 14:26 FiO2 30 I&O Intake and Output 06/19/22 00:00 Intake Total 2650 ml Output Total 1725 ml Balance 925 ml Intake Oral 1650 ml IV Total 1000 ml Output Urine Total 1725 ml # Bowel Movements 2 General: Alert, Oriented X3, Cooperative HEENT: Atraumatic, PERRLA Neck: Supple, No JVD, No Thyromegaly Lungs: Clear to Auscultation, Normal Air Movement Heart: Regular Rate, Normal S1, Normal S2, No Murmurs Abdomen: Normal Bowel Sounds, Soft, No Tenderness, No Hepatosplenomegaly, No Masses Extremities: No Clubbing, No Cyanosis, No Edema, Normal Pulses, No Tenderness/Swelling Skin: No Rashes, No Breakdown, No Significant Lesion Neuro: Normal Gait, Normal Speech, Strength at 5/5 X4 Ext, Normal Tone, Sensation Intact Psych/Mental Status: Mental Status NL, Mood NL Results Lab Laboratory Tests 06/19/22 04:42 A/P-Cardiology Admission Diagnosis Acute respiratory failure Acute renal failure Hypertension Congestive heart failure Assessment/Plan Status post acute respiratory failure, acute exacerbation of COPD Currently on 10 L nasal cannula, being weaned down. Severe pulmonary hypertension, unknown etiology No shunt was identified by bubble as well as echocardiogram CTA of the chest showed no pulmonary embolism, bronchiectasis was noted Will consider right heart catheterization and evaluating response to vasodilators Started on Viagra, evaluate tolerance and response Sepsis and pneumonia, receiving antibiotic Managed by medical team Minimal troponin elevation, repeat troponin was normal. Continue to monitor, probably secondary to hypoxemia Elevated BNP level, peripheral edema with renal failure Acute on chronic left ventricular diastolic dysfunction, normal systolic function, NYHA class IV 2D echo done on June 16, 2022 showing normal left ventricular size with moderate left ventricular hypertrophy, systolic function is preserved ejection fraction 60 to 65%, grade 2 diastolic dysfunction, enlarged right atrium and dilated right heart chambers. Severe pulmonary hypertension with PA pressure 75 to 80 mmHg. Questionable history of coronary artery disease, patient reporting that 2 years ago she had a stress test then a cardiac catheterization did not require any stenting or intervention. Continue to monitor Hypertension, controlled at this time, monitor blood pressure Acute on chronic renal insufficiency, monitor renal function. NEHEMIAS CHÁVEZ MD Jun 19, 2022 09:02
[2022-06-19] MEDS: SILDENAFIL 20 MG (REVATIO) TAB PO SCH ×3 (10:30→21:27)
--- NOTE | 2022-06-19 10:43 | Physical Therapy Daily Note ---
PT Daily Note-Current Subjective Patient agrees to PT. Pain Section J - Health Conditions 1. Rarely or not at all 2. Occasionally 3. Frequently 4. Almost constantly 8. Unable to answer Pain Effect on Sleep: 1 Pain Interference with Therapy: 1 Pain Interference w/Day-to-Day: 1 Mental Status Patient Orientation: Normal For Age Attachments: Oxygen, Briones Catheter Transfers SCALE: Activities may be completed with or without assistive devices. 0-Ynmwalnjns-eochkqv completes the activity by him/herself with no assistance from a helper. 5-Set-up or Clean-up Assistance-helper sets up or cleans up; patient completes activity. [place] assists only prior to or following the activity. 4-Supervision or Touching Assistance-helper provides verbal cues and/or touching/steadying and/or contact guard assistance as patient completes activity. Assistance may be provided throughout the activity or intermittently. 3-Partial/Moderate Assistance-helper does LESS THAN HALF the effort. [place] lifts, holds or supports trunk or limbs, but provides less than half the effort. 2-Substantial/Maximal Assistance-helper does MORE THAN HALF the effort. [place] lifts or holds trunk or limbs and provides more than half the effort. 2-Dfvnujedw-ftbykw does ALL the effort. Patient does none of the effort to complete the activity. Or, the assistance of 2 or more helpers is required for the patient to complete the activity. If activity was not attempted, code reason: 7-Patient Refused. 9-Not Applicable-not attempted and the patient did not perform the activity before the current illness, exacerbation or injury. 10-Not Attempted due to Environmental Limitations-(lack of equipment, weather restraints, etc.). 88-Not Attempted due to Medical Conditions or Safety Concerns. Sit to Stand (QC): 4 Chair/Qxs-dq-Oosrs Xfer(QC): 4 Toilet Transfer (QC): 4 assist with cleansing after BM Gait Training Distance: 15' Walk 10 feet (QC): 4 Gait Assistive Device: FWW safe and functional gait sequence Exercises Seated Therapy Exercises: Ankle pumps, Long arc quads, Hip flexion Seated Reps: 15 (x 2 sets) Assessment Patient tolerates minimal activity due to O2 demand. PT to increase activity as tolerated by patient. Patient is up in recliner with needs met. PT Halfway Goals Halfway Goals PT Halfway Goals Time Frame: Jun 24, 2022 Roll Left & Right (QC): 6 Sit to Lying (QC): 6 Lying-Sitting on Side/Bed(QC): 6 Sit to Stand (QC): 6 Chair/Dtt-lr-Kskez Xfer(QC): 6 Toilet Transfer (QC): 6 Walk 10 feet (QC): 6 Walk 50ft with 2 Turns (QC): 6 Walk 150 ft (QC): 6 PT Plan Treatment/Plan Treatment Plan: Continue Plan of Care Treatment Plan: Bed Mobility, Education, Functional Activity Susan, Functional Strength, Gait, Safety, Therapeutic Exercise, Transfers Treatment Duration: Jun 24, 2022 Frequency: 6 times per week Estimated Hrs Per Day: .25 hour per day Patient and/or Family Agrees t: Yes Time/GCodes Time In: 755 Time Out: 818 Total Billed Treatment Time: 23 Total Billed Treatment 1 visit FA x 2 23 min ELDER ESPITIA PT Jun 19, 2022 10:43
--- NOTE | 2022-06-19 13:18 | Tele-ICU Progress Note ---
Subjective Date Seen by a Provider: Jun 19, 2022 Time Seen by a Provider: 08:49 Subjective/Events-last exam (Tele-ICU Physician , Progress Note ) Available chart/ vitals / labs / Images reviewed Video assessment done using teleICU camera, rest of exam as per RN Discussed with RN Events overnight : Afebrile hemodynamically stable Respiratory - I/O = Drips: Pressors- no Consultants: Hospital course: (06/15) 76/F Admitted from ED Sepsis PNA. A/P Acute hypoxix resp failure unclear etiology. CXR with small RLL alveolar opacities, but hypoxia is out of proportion to this finding. -BiPap initiated---> to VT- 10 L NC now NEG w/up for PE with low prob VQ/ CTA chest and neg BUFFY US - on steroids IV Acute on chronic left ventricular diastolic dysfunction, normal systolic function -EF 65%,grade 2 diastolic dysfunction - as per cards Severe pulmonary hypertension with PA pressure 75 to 80 mmHg. -No shunt was identified by bubble as well as echocardiogram -heart catheterization considered - cards follow - ECHO to repeat Suspected PNA - abx to cont By CT chest - - bronchomalacia of the right mainstem bronchus and bronchus intermedius. SAMIR vs CKD -CPK WNL - improving with IVF -Avoid nephrotoxins and hypotension. Hyperkalemia - tx and follow UTI urine E coli - on abx - hypoglycemia - improved , follow thickening of the cardia of the stomach on CT - f/up as per PCP Lines : pwriph , (Central Line Necessity Reviewed) Briones: + OG: Nutrition po Analgesia: Anxiety/ delirium VTE Prophylaxis: coni full full dose Stress Ulcer Prophylaxis: Plans in collaboration with bedside consultants and IM MDs. Discussed with RN to reach out if any questions or concerns A total of 31 minutes of critical care time was devoted to this patient today, required to treat and/or prevent further deterioration of critical care condition ( as above ) . I am remotely monitoring this patient from another state. I am unable to do the bedside exam, and history/physical and pertinent information is taken from other notes in the computer and bedside staff. I cannot take responsibility for the accuracy of this information. . Sepsis Event Evaluation Height, Weight, BMI Height: '" Weight: lbs. oz. kg; 35.52 BMI Method: Exam Exam Patient acknowledged, consented, and participated in this virtual visit which was conducted using real time audio/video Vital Signs Date Time Temp Pulse Resp B/P (MAP) Pulse Ox O2 Delivery O2 Flow Rate FiO2 06/19/22 13:08 62 06/19/22 13:00 65 22 99/84 (89) 92 High Flow N/C 8.00 06/19/22 12:00 66 35 101/68 (79) 90 High Flow N/C 8.00 06/19/22 11:00 64 21 127/71 (89) 95 High Flow N/C 8.00 06/19/22 10:00 69 30 139/74 (95) 98 High Flow N/C 10.00 06/19/22 09:00 61 29 116/75 (89) 98 High Flow N/C 10.00 06/19/22 08:00 81 106/77 (87) 89 High Flow N/C 10.00 06/19/22 08:00 35.8 06/19/22 08:00 95 High Flow N/C 10.00 06/19/22 07:00 68 126/64 (84) 91 High Flow N/C 10.00 06/19/22 07:00 80 06/19/22 06:00 67 125/63 (89) 91 High Flow N/C 10.00 06/19/22 05:00 69 122/67 (77) 94 High Flow N/C 10.00 06/19/22 04:00 80 25 119/56 (78) 95 High Flow N/C 10.00 06/19/22 04:00 95 High Flow N/C 10.00 06/19/22 04:00 36.3 06/19/22 03:22 66 95 06/19/22 03:15 96 High Flow N/C 10.00 06/19/22 03:00 66 14 107/53 (74) 95 High Flow N/C 10.00 06/19/22 02:00 55 12 98/48 (69) 90 High Flow N/C 10.00 06/19/22 01:00 70 28 107/49 (73) 95 High Flow N/C 10.00 06/19/22 01:00 70 06/19/22 00:00 94 High Flow N/C 10.00 06/19/22 00:00 75 27 105/51 (69) 96 High Flow N/C 10.00 06/19/22 00:00 36.2 06/18/22 23:00 76 26 106/55 (63) 96 High Flow N/C 10.00 06/18/22 22:00 75 18 115/61 (84) 92 High Flow N/C 10.00 06/18/22 21:54 92 High Flow N/C 10.00 06/18/22 21:07 68 107/70 (96) 95 High Flow N/C 10.00 06/18/22 20:00 High Flow N/C 10.00 06/18/22 20:00 68 9 125/85 (100) 95 High Flow N/C 10.00 06/18/22 19:12 70 137/74 (105) High Flow N/C 10.00 06/18/22 19:00 74 06/18/22 18:00 73 24 123/95 (104) 96 High Flow N/C 10.00 06/18/22 17:00 67 26 131/68 (89) 95 High Flow N/C 10.00 06/18/22 16:00 High Flow N/C 10.00 06/18/22 16:00 68 26 131/77 (95) 96 High Flow N/C 10.00 06/18/22 15:00 73 26 131/84 (100) 92 High Flow N/C 10.00 06/18/22 14:43 High Flow N/C 10.00 06/18/22 14:26 92 Vapotherm 25.00 30 06/18/22 14:00 67 10 138/76 (96) 91 Vapotherm 25.00 50.00 I & O 06/19/22 07:00 Intake Total 2550 ml Output Total 1500 ml Balance 1050 ml Height & Weight Height: '" Weight: lbs. oz. kg; 35.52 BMI Method: General Appearance: No Apparent Distress, Obese HEENT: PERRL/EOMI, Pharynx Normal Neck: Normal Inspection, Supple Respiratory: Lungs Clear, No Respiratory Distress Cardiovascular: Regular Rate, Rhythm, No Murmur Capillary Refill: Greater Than 3 Seconds Gastrointestinal: normal bowel sounds, non tender, soft, no organomegaly, no pulsatile mass Extremity: Normal Inspection, No Pedal Edema Neurologic/Psychiatric: Alert, Normal Mood/Affect Skin: Normal Color, Warm/Dry Lymphatic: No Adenopathy Results Lab Laboratory Tests 06/18/22 03:47 06/19/22 04:42 Assessment/Plan Assessment/Plan 1 ENRIQUE BOLTON MD Jun 19, 2022 13:18
--- NOTE | 2022-06-19 13:43 | Occupational Ther Daily Note ---
OT Current Status-Daily Note Subjective Pt alert, sitting in recliner. Pt agrees to therapy. No c/o pain. Mental Status/Objective Patient Orientation: Person, Place, Time, Situation Attachments: Briones Catheter, IV, Oxygen, Telemetry ADL-Treatment Pt agrees to complete oral care standing at sink. Pt able to complete oral care with SBA for safety. Pt then ambulated around bed 2x's before terminating and stating that she has had enough for right now. Pt happy to get up and move around. After session, pt sitting in recliner with call light/phone in reach. All needs met in room. Therapy Code Descriptions/Definitions Functional [place] Measure: 0=Not Assessed/NA 4=Minimal Assistance 1=Total Assistance 5=Supervision or Setup 2=Maximal Assistance 6=Modified [place] 3=Moderate Assistance 7=Complete IndependenceSCALE: Activities may be completed with or without assistive devices. 0-Plmikhqedk-fbnrdly completes the activity by him/herself with no assistance from a helper. 5-Set-up or Clean-up Assistance-helper sets up or cleans up; patient completes activity. [place] assists only prior to or following the activity. 4-Supervision or Touching Assistance-helper provides verbal cues and/or touching/steadying and/or contact guard assistance as patient completes activity. Assistance may be provided throughout the activity or intermittently. 3-Partial/Moderate Assistance-helper does LESS THAN HALF the effort. [place] li fts, holds or supports trunk or limbs, but provides less than half the effort. 2-Substantial/Maximal Assistance-helper does MORE THAN HALF the effort. [place] lifts or holds trunk or limbs and provides more than half the effort. 8-Qxtdzvvdo-syllae does ALL the effort. Patient does none of the effort to complete the activity. Or, the assistance of 2 or more helpers is required for the patient to complete the activity. If activity was not attempted, code reason: 7-Patient Refused. 9-Not Applicable-not attempted and the patient did not perform the activity before the current illness, exacerbation or injury. 10-Not Attempted due to Environmental Limitations-(lack of equipment, weather restraints, etc.). 88-Not Attempted due to Medical Conditions or Safety Concerns. Oral Hygiene (QC): 4 OT Fpc Goals Innovation Manager Goals Time Frame: Jun 23, 2022 Eating (QC): 6 Oral Hygiene (QC): 5 Toileting Hygiene (QC): 6 Lower Body Dressing (QC): 4 On/Off Footwear (QC): 5 1=Demonstrate adherence to instructed precautions during ADL tasks. 2=Patient will verbalize/demonstrate understanding of assistive devices/modifications for ADL. 3=Patient will improve strength/tolerance for activity to enable patient to perform ADL's. OT Education/Plan Problem List/Assessment Assessment: Decreased Activ Tolerance, Impaired Self-Care Skills Discharge Recommendations Plan/Recommendations: Continue POC Treatment Plan/Plan of Care Patient would benefit from OT for education, treatment and training to promote independence in ADL's, mobility, safety and/or upper extremity function for ADL's. Plan of Care: ADL Retraining, Functional Mobility, UE Funct Exercise/Act Treatment Duration: Jun 23, 2022 Frequency: 3 times per week (3-5x/week) Estimated Hrs Per Day: .25 hour per day Agreement: Yes Rehab Potential: Good Time/GCodes Start Time: 13:20 Stop Time: 13:35 Total Time Billed (hr/min): 15 Billed Treatment Time 1 visit-ADL 1 (15 min) FARRUKH CANALES Jun 19, 2022 13:43
[2022-06-19] MEDS: cefTRIAXone 2,000 MG in NS (IVPB) 50 ML IV SCH (18:10)
[2022-06-19] MEDS: NS IV 1000 ML 1,000 ML IV SCH ×2 (18:10→21:32)
[2022-06-19] MEDS: MIRABEGRON 25 MG TAB (MYRBETRIQ) PO SCH (21:27)
[2022-06-19] MEDS: meTOprolol SUCCINATE 100 MG (TOPROL XL) TAB PO SCH (21:59)
[2022-06-20] MEDS: RT-ALBUTEROL/IPRATROPIUM 3 ML (DUONEB) VIAL INH SCH ×3 (02:59→14:44)
[2022-06-20] MEDS: inSUlin ASPART (NovoLOG) 1 UNIT/0.01 ML (CHARGE PER UNIT) SC SCH ×5 (04:02→20:28)
[2022-06-20 05:31] LABS: BASOPHILS % (AUTO) 0 % (0-10); EOSINOPHILS % (AUTO) 0 % (0-10); HEMATOCRIT 45 % (35-52); LYMPHOCYTES # (AUTO) 0.4 10^3/uL (1.0-4.0); LYMPHOCYTES % (AUTO) 4 % (12-44); MEAN CORPUSCULAR HEMOGLOBIN 30 pg (25-34); MEAN CORPUSCULAR HGB CONC 31 g/dL (32-36); MEAN CORPUSCULAR VOLUME 95 fL (80-99); MEAN PLATELET VOLUME 9.6 fL (9.0-12.2); MONOCYTES # (AUTO) 0.2 10^3/uL (0.0-1.0); MONOCYTES % (AUTO) 3 % (0-12); NEUTROPHILS # (AUTO) 7.8 10^3/uL (1.8-7.8); NEUTROPHILS % (AUTO) 92 % (42-75); PLATELET COUNT 202 10^3/uL (130-400); WHITE BLOOD COUNT 8.5 10^3/uL (4.3-11.0)
[2022-06-20 05:52] LABS: POTASSIUM 4.5 MMOL/L (3.6-5.0)
[2022-06-20 05:53] LABS: CALCIUM 8.6 MG/DL (8.5-10.1)
[2022-06-20 05:57] LABS: CREATININE SERUM 1.03 MG/DL (0.60-1.30)
[2022-06-20 05:59] LABS: MAGNESIUM 1.8 MG/DL (1.6-2.4)
[2022-06-20] MEDS: methylPREDNISolone 40 MG/ML (Solu-MEDROL) VIAL IV SCH (06:02)
[2022-06-20] MEDS: POTASSIUM CL 10MEQ/50ML IVPB 50 ML IV SCH (06:02)
[2022-06-20] MEDS: KCL 20 MEQ TAB (K-DUR) PO SCH (06:02)
[2022-06-20] MEDS: MAGNESIUM 1 GM/100 ML IVPB 100 ML IV SCH (06:02)
--- NOTE | 2022-06-20 07:30 | Progress Note - Hospitalist ---
Subjective HPI/CC On Admission Date Seen by Provider: Jun 19, 2022 (late entry note) Subjective/Events-last exam LATE ENTRY NOTE: PATIENT SEEN 06/19 Pt repors feeling well. Down to 10lpm HFNC. No complaints. Objective Exam Vital Signs Vital Signs Date Time Temp Pulse Resp B/P (MAP) Pulse Ox O2 Delivery O2 Flow Rate FiO2 06/20/22 06:00 68 11 139/74 (99) 97 High Flow N/C 6.00 06/19/22 20:02 36.2 06/18/22 14:26 30 Capillary Refill : Greater Than 3 Seconds General Appearance: No Apparent Distress, Obese Respiratory: Lungs Clear, No Respiratory Distress Cardiovascular: Regular Rate, Rhythm, No Murmur Neurologic/Psychiatric: Alert, Oriented x3 Results/Procedures Lab Laboratory Tests 06/20/22 04:40 Patient resulted labs reviewed. Imaging: Reviewed Imaging Films, Reviewed Imaging Report Assessment/Plan Assessment and Plan Assess & Plan/Chief Complaint Severe sepsis due to pneumonia Lactic acidosis SAMIR on CKD Acute respiratory failure with hypoxia and hypercapnia COPD with acute exacerbation Elevated troponin Elevated BNP Lower extremity swelling Pulmonary HTN Continue antibiotics Continue Solumedrol MAT protocol Vapotherm as needed, weaning as able TeleICU following Cardiology following Echo with normal EF, grade I diastolic dysfunction, PASP 75-80 Echo with bubble study negative for shunt Continue Sildenafil Consider right heart cath- defer to Dr Montesinos Case discussed with Dr. Montesinos- recommended trial of vasodilators UTI Rocephin HTN HLD CAD Continue home meds Hold Losartan IV Hydralazine as needed Obesity Clincally significant, no acute management needs DVT prophylaxis: Lovenox Critical Care Critically Ill Patient BELIA PRICE MD Jun 20, 2022 07:30
[2022-06-20] MEDS: DOCUSATE SODIUM 100 MG (COLACE) CAP PO SCH ×2 (07:35→20:27)
[2022-06-20] MEDS: SENNOSIDES 8.6 MG (SENOKOT) TAB PO SCH ×2 (07:35→20:27)
[2022-06-20] MEDS: SILDENAFIL 20 MG (REVATIO) TAB PO SCH ×3 (08:24→20:28)
[2022-06-20] MEDS: ENOXAPARIN 40 MG/0.4 ML (LOVENOX) SYR SC SCH (08:24)
[2022-06-20] MEDS: PREGABALIN 25 MG (LYRICA) CAPSULE PO SCH ×2 (08:24→20:28)
[2022-06-20] MEDS: amLODIPine 10 MG (NORVASC) TAB PO SCH (08:24)
[2022-06-20] MEDS: ASPIRIN E.C. 81 MG (ECOTRIN) TAB PO SCH (08:24)
--- NOTE | 2022-06-20 09:02 | Cardiology Progress Note ---
Subjective Date Seen by Provider: Jun 20, 2022 Time Seen by Provider: 09:01 Subjective/Events-last exam Patient was seen at bedside, sitting comfortably, feeling better, maintained on 6 L nasal cannula Review of Systems General: No Chills, No Night Sweats; Fatigue; No Malaise, No Appetite, No Other HEENT: No Head Aches, No Visual Changes, No Eye Pain, No Ear Pain, No Dysphasia, No Sinus Congestion, No Post Nasal Drip, No Sore Throat, No Other Pulmonary: Dyspnea; No Cough, No Pleuritic Chest Pain, No Other Cardiovascular: No: Chest Pain, Palpitations, Orthopnea, Paroxysmal Noc. Dyspnea, Edema, Lt Headedness, Other Objective-Cardiology Exam Last Set of Vital Signs Vital Signs 06/18/22 06/20/22 06/20/22 06/20/22 14:26 06:00 07:12 08:00 Temp 36.7 Pulse 75 Resp 11 B/P (MAP) 139/74 (99) Pulse Ox 97 O2 Delivery High Flow N/C O2 Flow Rate 6.00 FiO2 30 I&O Intake and Output 06/20/22 00:00 Intake Total 2240 ml Output Total 1925 ml Balance 315 ml Intake Oral 1190 ml IV Total 1050 ml Output Urine Total 1925 ml # Bowel Movements 3 General: Alert, Oriented X3, Cooperative HEENT: Atraumatic, PERRLA Neck: Supple, No JVD, No Thyromegaly Lungs: Clear to Auscultation, Normal Air Movement Heart: Regular Rate, Normal S1, Normal S2, No Murmurs Abdomen: Normal Bowel Sounds, Soft, No Tenderness, No Hepatosplenomegaly, No Masses Extremities: No Clubbing, No Cyanosis, No Edema, Normal Pulses, No Tenderness/Swelling Skin: No Rashes, No Breakdown, No Significant Lesion Neuro: Normal Gait, Normal Speech, Strength at 5/5 X4 Ext, Normal Tone, Sensation Intact Psych/Mental Status: Mental Status NL, Mood NL Results Lab Laboratory Tests 06/20/22 04:40 A/P-Cardiology Admission Diagnosis Acute respiratory failure Acute renal failure Hypertension Congestive heart failure Assessment/Plan Status post acute respiratory failure, acute exacerbation of COPD Severe pulmonary hypertension, improving slowly. Severe pulmonary hypertension, unknown etiology No shunt was identified by bubble as well as echocardiogram CTA of the chest showed no pulmonary embolism, bronchiectasis was noted Will consider right heart catheterization and evaluating response to vasodilators Started on Viagra, evaluate tolerance and response Sepsis and pneumonia, receiving antibiotic Managed by medical team Minimal troponin elevation, repeat troponin was normal. Continue to monitor, probably secondary to hypoxemia Elevated BNP level, peripheral edema with renal failure Acute on chronic left ventricular diastolic dysfunction, normal systolic funct ion, NYHA class IV 2D echo done on June 16, 2022 showing normal left ventricular size with moderate left ventricular hypertrophy, systolic function is preserved ejection fraction 60 to 65%, grade 2 diastolic dysfunction, enlarged right atrium and dilated right heart chambers. Severe pulmonary hypertension with PA pressure 75 to 80 mmHg. Questionable history of coronary artery disease, patient reporting that 2 years ago she had a stress test then a cardiac catheterization did not require any stenting or intervention. Continue to monitor Hypertension, controlled at this time, monitor blood pressure Acute on chronic renal insufficiency, monitor renal function. NEHEMIAS CHÁVEZ MD Jun 20, 2022 09:02
--- NOTE | 2022-06-20 09:06 | Physical Therapy Daily Note ---
PT Daily Note-Current Subjective Patient voices frustration with not being on medical floor. Patient agrees to PT. Pain Section J - Health Conditions 1. Rarely or not at all 2. Occasionally 3. Frequently 4. Almost constantly 8. Unable to answer Pain Effect on Sleep: 1 Pain Interference with Therapy: 1 Pain Interference w/Day-to-Day: 1 Mental Status Patient Orientation: Normal For Age Attachments: Oxygen, Briones Catheter, IV Transfers SCALE: Activities may be completed with or without assistive devices. 3-Dosvlcsfbp-vuzrwmb completes the activity by him/herself with no assistance from a helper. 5-Set-up or Clean-up Assistance-helper sets up or cleans up; patient completes activity. [place] assists only prior to or following the activity. 4-Supervision or Touching Assistance-helper provides verbal cues and/or touching/steadying and/or contact guard assistance as patient completes activity. Assistance may be provided throughout the activity or intermittently. 3-Partial/Moderate Assistance-helper does LESS THAN HALF the effort. [place] lifts, holds or supports trunk or limbs, but provides less than half the effort. 2-Substantial/Maximal Assistance-helper does MORE THAN HALF the effort. [place] lifts or holds trunk or limbs and provides more than half the effort. 1-Xfvxieyjy-zthztf does ALL the effort. Patient does none of the effort to complete the activity. Or, the assistance of 2 or more helpers is required for the patient to complete the activity. If activity was not attempted, code reason: 7-Patient Refused. 9-Not Applicable-not attempted and the patient did not perform the activity before the current illness, exacerbation or injury. 10-Not Attempted due to Environmental Limitations-(lack of equipment, weather restraints, etc.). 88-Not Attempted due to Medical Conditions or Safety Concerns. Lying to Sitting/Side of Bed(Q: 3 Sit to Stand (QC): 4 Chair/Znb-yv-Enwec Xfer(QC): 4 Gait Training Distance: 10' x 3 Walk 10 feet (QC): 4 Gait Assistive Device: FWW Exercises Seated Therapy Exercises: Ankle pumps, Long arc quads Seated Reps: 15 (x 2 sets) Assessment Patient tolerated treatment well and is up in recliner with needs met. PT to increase activity as tolerated by patient. PT Senior Care Goals Senior Care Goals PT Finisher Brush Goals Time Frame: Jun 24, 2022 Roll Left & Right (QC): 6 Sit to Lying (QC): 6 Lying-Sitting on Side/Bed(QC): 6 Sit to Stand (QC): 6 Chair/Ngz-mq-Uzzrl Xfer(QC): 6 Toilet Transfer (QC): 6 Walk 10 feet (QC): 6 Walk 50ft with 2 Turns (QC): 6 Walk 150 ft (QC): 6 PT Plan Treatment/Plan Treatment Plan: Continue Plan of Care Treatment Plan: Bed Mobility, Education, Functional Activity Susan, Functional Strength, Gait, Safety, Therapeutic Exercise, Transfers Treatment Duration: Jun 24, 2022 Frequency: 6 times per week Estimated Hrs Per Day: .25 hour per day Patient and/or Family Agrees t: Yes Time/GCodes Time In: 740 Time Out: 753 Total Billed Treatment Time: 13 Total Billed Treatment 1 visit FA 13 min ELDER ESPITIA PT Jun 20, 2022 09:06
--- NOTE | 2022-06-20 09:42 | Occupational Ther Daily Note ---
OT Current Status-Daily Note Subjective Pt alert, sitting in recliner. Pt agrees to therapy. No c/o pain. Difficult to maintain O2 levels above 90% with all movement, frequent recovery breaks required. Mental Status/Objective Patient Orientation: Person, Place, Time, Situation Attachments: Briones Catheter, IV, Oxygen (6L HiFlow NC) ADL-Treatment Pt transferring to [facility] beside chair to complete toileting independent. Assist only for tubing and monitors while completing oral care standing at sink. Difficulty with keeping O2 levels above 90% with oral care and standing, requires lengthy recovery breaks. Shampoo cap used to shampoo pt's hair. Therapy Code Descriptions/Definitions Functional [place] Measure: 0=Not Assessed/NA 4=Minimal Assistance 1=Total Assistance 5=Supervision or Setup 2=Maximal Assistance 6=Modified [place] 3=Moderate Assistance 7=Complete IndependenceSCALE: Activities may be completed with or without assistive devices. 0-Btkztwiubv-dabgerh completes the activity by him/herself with no assistance from a helper. 5-Set-up or Clean-up Assistance-helper sets up or cleans up; patient completes activity. [place] assists only prior to or following the activity. 4-Supervision or Touching Assistance-helper provides verbal cues and/or touching/steadying and/or contact guard assistance as patient completes activity. Assistance may be provided throughout the activity or intermittently. 3-Partial/Moderate Assistance-helper does LESS THAN HALF the effort. [place] lifts, holds or supports trunk or limbs, but provides less than half the effort. 2-Substantial/Maximal Assistance-helper does MORE THAN HALF the effort. [place] lifts or holds trunk or limbs and provides more than half the effort. 4-Wtrjbuipu-saanng does ALL the effort. Patient does none of the effort to complete the activity. Or, the assistance of 2 or more helpers is required for the patient to complete the activity. If activity was not attempted, code reason: 7-Patient Refused. 9-Not Applicable-not attempted and the patient did not perform the activity before the current illness, exacerbation or injury. 10-Not Attempted due to Environmental Limitations-(lack of equipment, weather restraints, etc.). 88-Not Attempted due to Medical Conditions or Safety Concerns. Eating (QC): 6 Oral Hygiene (QC): 4 (SBA due to tubing and decrease in O2 levels) Toileting Hygiene (QC): 6 Toilet Transfer (QC): 6 Other Treatment Pt completed B UE strengthening exercises, 1 set 5 reps of 5 exercises. Attempted to use light resistance theraband, pt O2 levels decreased quickly below 90%. Then attempted to completed 10 reps without resistance, O2 levels decreased quickly below 90%. Pt tolerated 5 reps of B UE without resistance while maintaining 90% and above for O2 levels. After therapy, pt sitting in recliner with call light/phone in reach. All needs met in room. present in room. OT [facility] Goals Bleach Packer Goals Time Frame: Jun 23, 2022 Eating (QC): 6 Oral Hygiene (QC): 5 Toileting Hygiene (QC): 6 Lower Body Dressing (QC): 4 On/Off Footwear (QC): 5 1=Demonstrate adherence to instructed precautions during ADL tasks. 2=Patient will verbalize/demonstrate understanding of assistive devices/modifica tions for ADL. 3=Patient will improve strength/tolerance for activity to enable patient to perform ADL's. OT Education/Plan Problem List/Assessment Assessment: Decreased Activ Tolerance, Decreased UE Strength, Impaired Self- Care Skills Discharge Recommendations Plan/Recommendations: Continue POC Treatment Plan/Plan of Care Patient would benefit from OT for education, treatment and training to promote independence in ADL's, mobility, safety and/or upper extremity function for ADL's. Plan of Care: ADL Retraining, Functional Mobility, UE Funct Exercise/Act Treatment Duration: Jun 23, 2022 Frequency: 3 times per week (3-5x/week) Estimated Hrs Per Day: .25 hour per day Agreement: Yes Rehab Potential: Good Time/GCodes Start Time: 09:20 Stop Time: 09:47 Total Time Billed (hr/min): 27 Billed Treatment Time 1 visit-ADL 1 (19 min) EX 1 (8 min) FARRUKH CANALES Jun 20, 2022 09:42
--- NOTE | 2022-06-20 11:48 | Progress Note - Hospitalist ---
Subjective HPI/CC On Admission Date Seen by Provider: Jun 20, 2022 Subjective/Events-last exam Pt reports doing well. Breathing improving. On 6lpm HFNC. Requests catheter out. Objective Exam Vital Signs Vital Signs Date Time Temp Pulse Resp B/P (MAP) Pulse Ox O2 Delivery O2 Flow Rate FiO2 06/20/22 11:07 High Flow N/C 5.00 06/20/22 11:00 58 31 94 06/20/22 08:00 36.7 06/18/22 14:26 30 Capillary Refill : Greater Than 3 Seconds General Appearance: No Apparent Distress, Obese Respiratory: Lungs Clear, No Accessory Muscle Use, No Respiratory Distress Cardiovascular: Regular Rate, Rhythm, No Murmur Neurologic/Psychiatric: Alert, Oriented x3 Results/Procedures Lab Laboratory Tests 06/20/22 04:40 Patient resulted labs reviewed. Imaging: Reviewed Imaging Films, Reviewed Imaging Report Assessment/Plan Assessment and Plan Assess & Plan/Chief Complaint Severe sepsis due to pneumonia Lactic acidosis SAMIR on CKD Acute respiratory failure with hypoxia and hypercapnia COPD with acute exacerbation Elevated troponin Elevated BNP Lower extremity swelling Pulmonary HTN Completed abx Transition to prednisone MAT protocol Vapotherm as needed, weaning as able TeleICU following Cardiology following Echo with normal EF, grade I diastolic dysfunction, PASP 75-80 Echo with bubble study negative for shunt Continue Sildenafil Case discussed with Dr. Montesinos- recommended trial of vasodilators Defer RHC plan to Dr Montesinos UTI Completed abx HTN HLD CAD Continue home meds Hold Losartan IV Hydralazine as needed Obesity Clincally significant, no acute management needs DVT prophylaxis: Lovenox Critical Care Critically Ill Patient BELIA PRICE MD Jun 20, 2022 11:48
--- NOTE | 2022-06-20 12:09 | Tele-ICU Progress Note ---
Subjective Date Seen by a Provider: Jun 20, 2022 Time Seen by a Provider: 08:43 Subjective/Events-last exam . (Tele-ICU Physician , Progress Note ) Available chart/ vitals / labs / Images reviewed Video assessment done using teleICU camera, rest of exam as per RN Discussed with RN Events overnight : Afebrile hemodynamically stable Respiratory - 6l nc I/O = even Drips: Pressors- no Consultants: Hospital course: (06/15) 76/F Admitted from ED Sepsis PNA. A/P Acute hypoxic resp failure unclear etiology. CXR with small RLL alveolar opacities, but hypoxia is out of proportion to this finding. -BiPap initiated---> to VT- 6 L NC now NEG w/up for PE with low prob VQ/ CTA chest and neg BUFFY US - on steroids IV - CONSIDER TO DECREASE DOSE AND CHANGE TO PO ? Acute on chronic left ventricular diastolic dysfunction, normal systolic function -EF 65%,grade 2 diastolic dysfunction - as per cards Severe pulmonary hypertension with PA pressure 75 to 80 mmHg. -No shunt was identified by bubble as well as echocardiogram -heart catheterization considered - cards follow , Started on Viagra - ECHO to repeat Suspected PNA - abx to cont By CT chest - bronchomalacia of the right mainstem bronchus and bronchus intermedius. SAMIR vs CKD -CPK WNL - improving with IVF -Avoid nephrotoxins and hypotension. Hyperkalemia - tx and follow UTI urine E coli - on abx - hypoglycemia - improved , follow thickening of the cardia of the stomach on CT - f/up as per PCP Lines : periph , (Central Line Necessity Reviewed) Briones: + OG: Nutrition po Analgesia: Anxiety/ delirium VTE Prophylaxis: coni propjh dose Stress Ulcer Prophylaxis: Plans in collaboration with bedside consultants and IM MDs. Discussed with RN to reach out if any questions or concerns A total of 31 minutes of critical care time was devoted to this patient today, required to treat and/or prevent further deterioration of critical care condition ( as above ) . I am remotely monitoring this patient from another state. I am unable to do the bedside exam, and history/physical and pertinent information is taken from other notes in the computer and bedside staff. I cannot take responsibility for the accuracy of this information. . Sepsis Event Evaluation Height, Weight, BMI Height: '" Weight: lbs. oz. kg; 35.55 BMI Method: Exam Exam Patient acknowledged, consented, and participated in this virtual visit which was conducted using real time audio/video Vital Signs Date Time Temp Pulse Resp B/P (MAP) Pulse Ox O2 Delivery O2 Flow Rate FiO2 06/20/22 11:07 High Flow N/C 5.00 06/20/22 11:02 High Flow N/C 5.00 06/20/22 11:01 95 High Flow N/C 7.00 06/20/22 11:00 58 31 135/88 (104) 94 High Flow N/C 6.00 06/20/22 10:00 60 13 134/67 (89) 95 High Flow N/C 6.00 06/20/22 09:00 57 26 140/81 (100) 90 High Flow N/C 6.00 06/20/22 08:00 93 High Flow N/C 6.00 06/20/22 08:00 36.7 06/20/22 08:00 61 31 148/86 (106) 92 High Flow N/C 6.00 06/20/22 07:12 75 06/20/22 07:00 68 12 128/67 (87) 97 High Flow N/C 6.00 06/20/22 06:00 68 11 139/74 (99) 97 High Flow N/C 6.00 06/20/22 05:00 69 144/78 (106) 96 High Flow N/C 6.00 06/20/22 04:00 69 28 133/70 (94) 97 High Flow N/C 6.00 06/20/22 03:57 93 High Flow N/C 6.00 06/20/22 03:00 75 10 129/77 (88) 95 High Flow N/C 6.00 06/20/22 02:59 95 High Flow N/C 6.00 06/20/22 02:00 77 28 123/73 (89) 97 High Flow N/C 6.00 06/20/22 01:00 75 06/20/22 01:00 75 125/67 (85) 98 High Flow N/C 6.00 06/20/22 00:00 80 24 126/72 (89) 94 High Flow N/C 6.00 06/19/22 23:54 95 High Flow N/C 6.00 06/19/22 23:00 76 132/69 (97) 95 High Flow N/C 6.00 06/19/22 22:30 72 30 94 High Flow N/C 6.00 06/19/22 22:10 75 127/70 (92) 96 High Flow N/C 7.00 06/19/22 22:00 84 8 109/86 (96) 97 High Flow N/C 7.00 06/19/22 21:58 84 10 139/82 (107) 96 High Flow N/C 7.00 06/19/22 21:00 80 33 142/75 (97) 97 High Flow N/C 7.00 06/19/22 20:02 36.2 06/19/22 20:00 79 139/77 (101) 94 High Flow N/C 7.00 06/19/22 19:42 91 High Flow N/C 10.00 06/19/22 19:00 76 18 142/90 (119) 91 High Flow N/C 7.00 06/19/22 19:00 76 06/19/22 18:00 72 17 134/78 (96) 91 High Flow N/C 7.00 06/19/22 17:00 73 25 123/70 (87) 94 High Flow N/C 7.00 06/19/22 16:00 95 High Flow N/C 10.00 06/19/22 16:00 73 11 135/74 (94) 93 High Flow N/C 7.00 06/19/22 15:39 35.9 06/19/22 15:29 High Flow N/C 7.00 06/19/22 15:21 95 High Flow N/C 7.00 06/19/22 15:00 64 39 82/54 (63) 92 High Flow N/C 8.00 06/19/22 14:00 62 26 129/65 (86) 92 High Flow N/C 8.00 06/19/22 13:08 62 06/19/22 13:00 65 22 99/84 (89) 92 High Flow N/C 8.00 I & O 06/20/22 07:00 Intake Total 2240 ml Output Total 3150 ml Balance -910 ml Height & Weight Height: '" Weight: lbs. oz. kg; 35.55 BMI Method: General Appearance: No Apparent Distress, Obese HEENT: PERRL/EOMI, Pharynx Normal Neck: Normal Inspection, Supple Respiratory: Lungs Clear, No Accessory Muscle Use, No Respiratory Distress Cardiovascular: Regular Rate, Rhythm, No Murmur Capillary Refill: Greater Than 3 Seconds Gastrointestinal: normal bowel sounds, non tender, soft, no organomegaly, no pulsatile mass Extremity: Normal Inspection, No Pedal Edema Neurologic/Psychiatric: Alert, Oriented x3 Skin: Normal Color, Warm/Dry Lymphatic: No Adenopathy Results Lab Laboratory Tests 06/19/22 04:42 06/20/22 04:40 Assessment/Plan Assessment/Plan 1 ENRIQUE BOLTON MD Jun 20, 2022 12:09
[2022-06-20 13:38] VITALS: BP 128/63
[2022-06-20 16:00] VITALS: BP 127/77
[2022-06-20 17:55] VITALS: BP 122/77
[2022-06-20] MEDS ORDERED: RT-ALBUTEROL/IPRATROPIUM 3 ML (DUONEB) VIAL INH PRN (18:00)
[2022-06-20] MEDS: cefTRIAXone 2,000 MG in NS (IVPB) 50 ML IV SCH (18:15)
[2022-06-20 19:58] VITALS: BP 138/63
[2022-06-20] MEDS: meTOprolol SUCCINATE 100 MG (TOPROL XL) TAB PO SCH (20:28)
[2022-06-20] MEDS: MIRABEGRON 25 MG TAB (MYRBETRIQ) PO SCH (20:28)
[2022-06-20 23:09] VITALS: BP 132/61
[2022-06-21 03:23] VITALS: BP 138/75
[2022-06-21] MEDS: inSUlin ASPART (NovoLOG) 1 UNIT/0.01 ML (CHARGE PER UNIT) SC SCH ×4 (05:09→21:00)
[2022-06-21] MEDS: predniSONE 20 MG TAB PO SCH (05:36)
[2022-06-21 06:19] LABS: BASOPHILS % (AUTO) 0 % (0-10); EOSINOPHILS % (AUTO) 0 % (0-10); HEMATOCRIT 47 % (35-52); HEMOGLOBIN 14.9 g/dL (11.5-16.0); LYMPHOCYTES # (AUTO) 0.9 10^3/uL (1.0-4.0); LYMPHOCYTES % (AUTO) 8 % (12-44); MEAN CORPUSCULAR HEMOGLOBIN 30 pg (25-34); MEAN CORPUSCULAR HGB CONC 32 g/dL (32-36); MEAN CORPUSCULAR VOLUME 94 fL (80-99); MONOCYTES # (AUTO) 1.1 10^3/uL (0.0-1.0); MONOCYTES % (AUTO) 10 % (0-12); NEUTROPHILS # (AUTO) 8.8 10^3/uL (1.8-7.8); NEUTROPHILS % (AUTO) 80 % (42-75); PLATELET COUNT 216 10^3/uL (130-400); WHITE BLOOD COUNT 10.9 10^3/uL (4.3-11.0)
[2022-06-21 06:39] LABS: CALCIUM 8.8 MG/DL (8.5-10.1); CREATININE SERUM 1.11 MG/DL (0.60-1.30); MAGNESIUM 1.7 MG/DL (1.6-2.4); POTASSIUM 4.2 MMOL/L (3.6-5.0)
[2022-06-21] MEDS: KCL 20 MEQ TAB (K-DUR) PO SCH (06:56)
[2022-06-21] MEDS: POTASSIUM CL 10MEQ/50ML IVPB 50 ML IV SCH (06:56)
[2022-06-21] MEDS: MAGNESIUM 1 GM/100 ML IVPB 100 ML IV SCH ×3 (06:57→09:12)
[2022-06-21 07:58] VITALS: BP 126/64
[2022-06-21] MEDS: ENOXAPARIN 40 MG/0.4 ML (LOVENOX) SYR SC SCH (08:08)
[2022-06-21] MEDS: amLODIPine 10 MG (NORVASC) TAB PO SCH (08:09)
[2022-06-21] MEDS: DOCUSATE SODIUM 100 MG (COLACE) CAP PO SCH ×3 (08:09→21:23)
[2022-06-21] MEDS: PREGABALIN 25 MG (LYRICA) CAPSULE PO SCH ×2 (08:09→21:23)
[2022-06-21] MEDS: SILDENAFIL 20 MG (REVATIO) TAB PO SCH ×3 (08:09→21:23)
[2022-06-21] MEDS: SENNOSIDES 8.6 MG (SENOKOT) TAB PO SCH ×3 (08:09→21:23)
[2022-06-21] MEDS: ASPIRIN E.C. 81 MG (ECOTRIN) TAB PO SCH (08:09)
--- NOTE | 2022-06-21 09:12 | Occupational Ther Daily Note ---
OT Current Status-Daily Note Subjective Pt sitting at recliner. Pt c/o no pain. Pt agrees to therapy. Per pt report, pt is taking herself to and from bathroom independently. Mental Status/Objective Patient Orientation: Person, Place, Time, Situation Attachments: IV, Oxygen (HF 5L) ADL-Treatment Pt ambulated to bathroom with FWW requiring SBA due to O2 and IV tubing. Pt completed oral hygiene and hair brushing independently standing at the sink. Pt required assistance to complete upper body dressing due to O2, IV and telemetry. Pt sitting in recliner at end of session with call light and phone in reach. All needs met in room. Therapy Code Descriptions/Definitions Functional [place] Measure: 0=Not Assessed/NA 4=Minimal Assistance 1=Total Assistance 5=Supervision or Setup 2=Maximal Assistance 6=Modified [place] 3=Moderate Assistance 7=Complete IndependenceSCALE: Activities may be completed with or without assistive devices. 9-Jnsajgopgz-hpxqjxe completes the activity by him/herself with no assistance from a helper. 5-Set-up or Clean-up Assistance-helper sets up or cleans up; patient completes activity. [place] assists only prior to or following the activity. 4-Supervision or Touching Assistance-helper provides verbal cues and/or touching/steadying and/or contact guard assistance as patient completes activity. Assistance may be provided throughout the activity or intermittently. 3-Partial/Moderate Assistance-helper does LESS THAN HALF the effort. [place] lifts, holds or supports trunk or limbs, but provides less than half the effort. 2-Substantial/Maximal Assistance-helper does MORE THAN HALF the effort. [place] lifts or holds trunk or limbs and provides more than half the effort. 5-Vuoxslsxj-bwumtg does ALL the effort. Patient does none of the effort to complete the activity. Or, the assistance of 2 or more helpers is required for the patient to complete the activity. If activity was not attempted, code reason: 7-Patient Refused. 9-Not Applicable-not attempted and the patient did not perform the activity before the current illness, exacerbation or injury. 10-Not Attempted due to Environmental Limitations-(lack of equipment, weather restraints, etc.). 88-Not Attempted due to Medical Conditions or Safety Concerns. Oral Hygiene (QC): 6 Upper Body Dressing (QC): 3 (required assistance due to telemetry, IV and O2 cords. ) Toileting Hygiene (QC): 6 (Per pt using restroom independently) OT [facility] Goals Customer Sales Distributor Goals Time Frame: Jun 23, 2022 Eating (QC): 6 Oral Hygiene (QC): 5 Toileting Hygiene (QC): 6 Lower Body Dressing (QC): 4 On/Off Footwear (QC): 5 1=Demonstrate adherence to instructed precautions during ADL tasks. 2=Patient will verbalize/demonstrate understanding of assistive devices/modific ations for ADL. 3=Patient will improve strength/tolerance for activity to enable patient to perform ADL's. OT Education/Plan Problem List/Assessment Assessment: Decreased Activ Tolerance Discharge Recommendations Plan/Recommendations: Continue POC Treatment Plan/Plan of Care Patient would benefit from OT for education, treatment and training to promote independence in ADL's, mobility, safety and/or upper extremity function for ADL's. Plan of Care: ADL Retraining, Functional Mobility, UE Funct Exercise/Act Treatment Duration: Jun 23, 2022 Frequency: 3 times per week (3-5x/week) Estimated Hrs Per Day: .25 hour per day Agreement: Yes Rehab Potential: Good Time/GCodes Start Time: 08:36 Stop Time: 09:06 Total Time Billed (hr/min): 30 Billed Treatment Time 1 visit ADL 2 (30 min) FARRUKH CANALES Jun 21, 2022 09:12
--- NOTE | 2022-06-21 09:36 | Progress Note - Hospitalist ---
Subjective HPI/CC On Admission Date Seen by Provider: Jun 21, 2022 Subjective/Events-last exam Pt reports doing well. No complaints. Down to 5lpm NC today. RN reports no concerns. Objective Exam Vital Signs Vital Signs Date Time Temp Pulse Resp B/P (MAP) Pulse Ox O2 Delivery O2 Flow Rate FiO2 06/21/22 08:20 High Flow N/C 5.00 06/21/22 07:58 36.6 62 18 126/64 (84) 92 06/18/22 14:26 30 Capillary Refill : Greater Than 3 Seconds General Appearance: No Apparent Distress, WD/WN, Obese Respiratory: Lungs Clear, No Respiratory Distress Cardiovascular: Regular Rate, Rhythm, No Murmur Gastrointestinal: Normal Bowel Sounds, Soft Neurologic/Psychiatric: Alert, Oriented x3 Results/Procedures Lab Laboratory Tests 06/21/22 05:24 Patient resulted labs reviewed. Imaging: Reviewed Imaging Films, Reviewed Imaging Report Assessment/Plan Assessment and Plan Assess & Plan/Chief Complaint Severe sepsis due to pneumonia Lactic acidosis SAMIR on CKD Acute respiratory failure with hypoxia and hypercapnia COPD with acute exacerbation Elevated troponin Elevated BNP Lower extremity swelling Pulmonary HTN Completed abx Continue prednisone MAT protocol TeleICU following Cardiology following Echo with normal EF, grade I diastolic dysfunction, PASP 75-80 Echo with bubble study negative for shunt Continue Sildenafil Case discussed with Dr. Montesinos- recommended trial of vasodilators Defer RHC plan to Dr Montesinos Down to 5lpm HFNC- continue to wean Hopefully home tomorrow, will order oxygen study for tomorrow UTI Completed abx HTN HLD CAD Continue home meds Hold Losartan IV Hydralazine as needed Obesity Clinically significant, no acute management needs DVT prophylaxis: Lovenox Critical Care Critically Ill Patient BELIA PRICE MD Jun 21, 2022 09:36
--- NOTE | 2022-06-21 09:49 | Cardiology Progress Note ---
Subjective Date Seen by Provider: Jun 21, 2022 Time Seen by Provider: 08:50 Subjective/Events-last exam Patient up in room, denies any chest pain or increased dyspnea Objective-Cardiology Exam Last Set of Vital Signs Vital Signs 06/18/22 06/21/22 14:26 11:46 Temp 36.5 Pulse 58 Resp 18 B/P (MAP) 132/63 (86) Pulse Ox 92 O2 Delivery High Flow N/C O2 Flow Rate 3.00 FiO2 30 I&O Intake and Output 06/21/22 00:00 Intake Total 640 ml Output Total 2700 ml Balance -2060 ml Intake Oral 640 ml Output Urine Total 2700 ml # Voids 2 General: Alert, Oriented X3, Cooperative HEENT: Atraumatic, PERRLA Neck: Supple, No JVD, No Thyromegaly Lungs: Clear to Auscultation, Normal Air Movement Heart: Regular Rate, Normal S1, Normal S2, No Murmurs Abdomen: Normal Bowel Sounds, Soft, No Tenderness, No Hepatosplenomegaly, No Masses Extremities: No Clubbing, No Cyanosis, No Edema, Normal Pulses, No Tenderness/Swelling Skin: No Rashes, No Breakdown, No Significant Lesion Neuro: Normal Gait, Normal Speech, Strength at 5/5 X4 Ext, Normal Tone, Sensation Intact Psych/Mental Status: Mental Status NL, Mood NL Results Lab Laboratory Tests 06/21/22 05:24 A/P-Cardiology Admission Diagnosis Acute respiratory failure Acute renal failure Hypertension Congestive heart failure Assessment/Plan Status post acute respiratory failure, acute exacerbation of COPD Severe pulmonary hypertension, improving slowly. Severe pulmonary hypertension, unknown etiology No shunt was identified by bubble as well as echocardiogram CTA of the chest showed no pulmonary embolism, bronchiectasis was noted Started on Viagra, evaluate tolerance and response Consider right heart catheterization Sepsis and pneumonia, receiving antibiotic Managed by medical team Minimal troponin elevation, repeat troponin was normal. Continue to monitor, probably secondary to hypoxemia Elevated BNP level, peripheral edema with renal failure Acute on chronic left ventricular diastolic dysfunction, normal systolic function, NYHA class IV 2D echo done on June 16, 2022 showing normal left ventricular size with moderate left ventricular hypertrophy, systolic function is preserved ejection fraction 60 to 65%, grade 2 diastolic dysfunction, enlarged right atrium and dilated right heart chambers. Severe pulmonary hypertension with PA pressure 75 to 80 mmHg. Questionable history of coronary artery disease, patient reporting that 2 years ago she had a stress test then a cardiac catheterization did not require any stenting or intervention. Continue to monitor Hypertension, controlled at this time, monitor blood pressure Acute on chronic renal insufficiency, monitor renal function. Supervisory-Addendum Brief Supervisory Addendum Participated in pt care: history, MDM, physical Personally performed: exam, history, MDM Care discussed with: BRAYDON Results interpretation: Verified all documentation Notes: Patient was seen and evaluated with Hubert, examination performed, management plan was discussed, agree with the current scribed note, I made few changes to the note using Italic font Patient was seen at bedside, feeling better, reporting improvement in her symptoms Currently on 2 L nasal cannula, clear to be responding well to treatment Okay for discharge from cardiology standpoint HUBERT CLEMONS Jun 21, 2022 09:49 NEHEMIAS CHVÁEZ MD Jun 21, 2022 13:56
[2022-06-21 11:46] VITALS: BP 132/63
--- NOTE | 2022-06-21 13:56 | Physical Therapy Daily Note ---
PT Daily Note-Current Subjective Pt. agrees to Rx. Pain Location: No Pain Reported Section J - Health Conditions 1. Rarely or not at all 2. Occasionally 3. Frequently 4. Almost constantly 8. Unable to answer Pain Effect on Sleep: 1 Pain Interference with Therapy: 1 Pain Interference w/Day-to-Day: 1 Mental Status Patient Orientation: Normal For Age Attachments: Oxygen Transfers SCALE: Activities may be completed with or without assistive devices. 2-Xkehltgiji-uxdswri completes the activity by him/herself with no assistance from a helper. 5-Set-up or Clean-up Assistance-helper sets up or cleans up; patient completes activity. [place] assists only prior to or following the activity. 4-Supervision or Touching Assistance-helper provides verbal cues and/or touching/steadying and/or contact guard assistance as patient completes activity. Assistance may be provided throughout the activity or intermittently. 3-Partial/Moderate Assistance-helper does LESS THAN HALF the effort. [place] lifts, holds or supports trunk or limbs, but provides less than half the effort. 2-Substantial/Maximal Assistance-helper does MORE THAN HALF the effort. [place] lifts or holds trunk or limbs and provides more than half the effort. 9-Dnrorvvqg-cudbyp does ALL the effort. Patient does none of the effort to complete the activity. Or, the assistance of 2 or more helpers is required for the patient to complete the activity. If activity was not attempted, code reason: 7-Patient Refused. 9-Not Applicable-not attempted and the patient did not perform the activity before the current illness, exacerbation or injury. 10-Not Attempted due to Environmental Limitations-(lack of equipment, weather restraints, etc.). 88-Not Attempted due to Medical Conditions or Safety Concerns. all TRFs mod I Gait Training Does the Patient Walk?: Yes Gait Assistive Device: FWW 120 ft FWW CGA to SBA assisted with O2 tubing only, many turns and manuevers, no LOB, no SOB Exercises Supine Ex: Bridging, Ankle pumps, Glut sets, Heel Slides, Short Arc Quads, Scooting, Straight leg raise, Hip abd/add Supine Reps: 12 Seated Therapy Exercises: Ankle pumps, Sit to stand, Long arc quads, Hip flexio n, Hip abd/add Seated Reps: 10 Treatments TRFs, gt, sitting and supine therx, safety and education regarding use of long O2 tubing Assessment Current Status: Good Progress PT Supervisor Forming And Tempering Goals Supervisor Forming And Tempering Goals PT Half-Way Goals Time Frame: Jun 24, 2022 Roll Left & Right (QC): 6 Sit to Lying (QC): 6 Lying-Sitting on Side/Bed(QC): 6 Sit to Stand (QC): 6 Chair/Mci-cb-Jmmgv Xfer(QC): 6 Toilet Transfer (QC): 6 Walk 10 feet (QC): 6 Walk 50ft with 2 Turns (QC): 6 Walk 150 ft (QC): 6 PT Plan Treatment/Plan Treatment Plan: Continue Plan of Care Treatment Plan: Bed Mobility, Education, Functional Activity Susan, Functional Strength, Gait, Safety, Therapeutic Exercise, Transfers Treatment Duration: Jun 24, 2022 Frequency: 6 times per week Estimated Hrs Per Day: .25 hour per day Patient and/or Family Agrees t: Yes Safety Risks/Education Patient Education: Gait Training, Transfer Techniques, Correct Positioning, Disease Process, Safety Issues Teaching Recipient: Patient Teaching Methods: Demonstration, Discussion Response to Teaching: Verbalize Understanding, Return Demonstration, Dilan nforcement Needed Time/GCodes Time In: 1330 Time Out: 1350 Total Billed Treatment Time: 20 Total Billed Treatment 1,GT20m BUFFY GARY NEWS REEL CAMERAMAN Jun 21, 2022 13:56
[2022-06-21] MEDS ORDERED: FLU QUAD HIGH DOSE 240 MCG/0.7 ML 2022-23 (FLUZONE) IM ONE (14:15)
[2022-06-21 15:36] VITALS: BP 134/76
[2022-06-21 19:26] VITALS: BP 150/87
[2022-06-21] MEDS: MIRABEGRON 25 MG TAB (MYRBETRIQ) PO SCH (21:23)
[2022-06-21] MEDS: meTOprolol SUCCINATE 100 MG (TOPROL XL) TAB PO SCH (21:23)
[2022-06-22 00:08] VITALS: BP 130/77
[2022-06-22 04:08] VITALS: BP 147/67
[2022-06-22] MEDS: predniSONE 20 MG TAB PO SCH (06:10)
[2022-06-22 06:27] LABS: BASOPHILS % (AUTO) 0 % (0-10); EOSINOPHILS # (AUTO) 0.1 10^3/uL (0.0-0.3); EOSINOPHILS % (AUTO) 1 % (0-10); HEMATOCRIT 48 % (35-52); HEMOGLOBIN 15.1 g/dL (11.5-16.0); LYMPHOCYTES # (AUTO) 1.1 10^3/uL (1.0-4.0); LYMPHOCYTES % (AUTO) 13 % (12-44); MEAN CORPUSCULAR HEMOGLOBIN 30 pg (25-34); MEAN CORPUSCULAR HGB CONC 32 g/dL (32-36); MEAN CORPUSCULAR VOLUME 94 fL (80-99); MEAN PLATELET VOLUME 9.8 fL (9.0-12.2); MONOCYTES % (AUTO) 11 % (0-12); NEUTROPHILS # (AUTO) 6.3 10^3/uL (1.8-7.8); NEUTROPHILS % (AUTO) 73 % (42-75); PLATELET COUNT 213 10^3/uL (130-400); WHITE BLOOD COUNT 8.6 10^3/uL (4.3-11.0)
[2022-06-22 06:44] LABS: CALCIUM 8.9 MG/DL (8.5-10.1); CREATININE SERUM 1.16 MG/DL (0.60-1.30); MAGNESIUM 2.1 MG/DL (1.6-2.4); POTASSIUM 4.3 MMOL/L (3.6-5.0)
[2022-06-22] MEDS: POTASSIUM CL 10MEQ/50ML IVPB 50 ML IV SCH (06:52)
[2022-06-22] MEDS: MAGNESIUM 1 GM/100 ML IVPB 100 ML IV SCH (06:52)
[2022-06-22] MEDS: KCL 20 MEQ TAB (K-DUR) PO SCH (06:52)
[2022-06-22] MEDS: inSUlin ASPART (NovoLOG) 1 UNIT/0.01 ML (CHARGE PER UNIT) SC SCH ×2 (06:52→11:03)
[2022-06-22 07:51] VITALS: BP 121/60
[2022-06-22] MEDS: amLODIPine 10 MG (NORVASC) TAB PO SCH (08:52)
[2022-06-22] MEDS: ASPIRIN E.C. 81 MG (ECOTRIN) TAB PO SCH (08:52)
[2022-06-22] MEDS: PREGABALIN 25 MG (LYRICA) CAPSULE PO SCH (08:52)
[2022-06-22] MEDS: SILDENAFIL 20 MG (REVATIO) TAB PO SCH ×2 (08:52→13:18)
[2022-06-22] MEDS: DOCUSATE SODIUM 100 MG (COLACE) CAP PO SCH (08:53)
[2022-06-22] MEDS: SENNOSIDES 8.6 MG (SENOKOT) TAB PO SCH (08:53)
[2022-06-22] MEDS: ENOXAPARIN 40 MG/0.4 ML (LOVENOX) SYR SC SCH (08:53)
[2022-06-22] MEDS ORDERED: PRED10TA22 PO (10:22)
[2022-06-22] MEDS ORDERED: SILD20TA14 PO (10:22)
[2022-06-22 11:37] VITALS: BP 127/73
[2022-06-22] MEDS ORDERED: LACT1CAP62 PO (11:49)
--- NOTE | 2022-06-22 11:49 | D/C HH Face to Face Order ---
D/C Face to Face Orders Instructions for Patient Via [facility], Patient Instructions/FollowUp: Please continue to take your medications as written. Please follow up with your primary care doctor to follow up this hospital stay. Please seek evaluation for chest pain, shortness of breath, fever, weakness, if you feel you are getting worse. Physician to follow Patient: Dr Taylor Discharge Diet for Home: No Restrictions Patient Data-Allergies,Ht & Wt Patient Allergies: Coded Allergies: No Known Drug Allergies (Unverified , 06/15/22) Home Health Need/Face to Face Date of Face to Face: Jun 22, 2022 Clinical Findings: Shortness of breath I have seen Pt [id number]: Yes Discharged To: Home Diagnosis/Conditions: Pulmonary Hypertension Patient is Homebound due to: Shortness of breath/distress Homebound Status Due to the above stated illness, injury or surgical procedure (medical condition or diagnosis) and associated clinical findings, the patient is homebound because of his/her inability to leave home except with aid of a supportive device and/or person AND leaving the home requires a considerable and taxing effort or is medically contraindicated. Pt req the following assistanc: Aid of another person Home Health Nursing Orders Home Health Services Order: Nursing Services, Physical Therapy-Evaluate & Treat Therapy Orders Therapy Orders: Physical Therapy Therapy Specific Orders: Eval assistive deivces, Teach enviro modifications/safety, Gait training, Increase strength/endurance [facility] certify that this patient is under my care and that I, a nurse practitioner or a physician; a healthcare administrative assistant working with me, had a face to face encounter that - meets the physician face to face encounter requirements with this patient as dated. BELIA PRICE MD Jun 22, 2022 10:19
--- NOTE | 2022-06-22 11:50 | Discharge Summary ---
Diagnosis/Chief Complaint Date of Admission Jun 15, 2022 at 17:00 Date of Discharge Discharge Date: Jun 22, 2022 Admission Diagnosis Severe sepsis due to pneumonia Primary Care Benoit Melendez MD Discharge Diagnosis (1) Severe sepsis Status: Acute (2) PNA (pneumonia) Status: Acute (3) Acute respiratory failure with hypoxia and hypercapnia Status: Acute (4) Lactic acidosis Status: Acute (5) Acute kidney injury superimposed on chronic kidney disease Status: Acute (6) Elevated d-dimer Status: Acute (7) COPD with acute exacerbation Status: Acute (8) Elevated troponin Status: Acute (9) Elevated brain natriuretic peptide (BNP) level Status: Acute (10) Swelling of both lower extremities Status: Acute (11) HTN (hypertension) Status: Chronic (12) HLD (hyperlipidemia) Status: Chronic (13) CAD (coronary artery disease) Status: Chronic (14) Obesity Status: Chronic (15) Former smoker Status: Chronic (16) Pulmonary hypertension Status: Acute Discharge Summary Discharge Physical Exam Allergies: Coded Allergies: No Known Drug Allergies (Unverified , 06/15/22) Vitals & I&Os Vital Signs Date Time Temp Pulse Resp B/P (MAP) Pulse Ox O2 Delivery O2 Flow Rate FiO2 06/22/22 11:37 36.2 55 18 127/73 (91) 95 Nasal Cannula 2.00 06/18/22 14:26 30 Hospital Course Labs (last 24 hrs) Laboratory Tests 06/21/22 15:29: Glucometer 134H 06/21/22 20:37: Glucometer 111H 06/22/22 05:11: White Blood Count 8.6, Red Blood Count 5.09, Hemoglobin 15.1, Hematocrit 48, Mean Corpuscular Volume 94, Mean Corpuscular Hemoglobin 30, Mean Corpuscular Hemoglobin Concent 32, Red Cell Distribution Width 14.7H, Platelet Count 213, Mean Platelet Volume 9.8, Immature Granulocyte % (Auto) 2, Neutrophils (%) (Auto) 73, Lymphocytes (%) (Auto) 13, Monocytes (%) (Auto) 11, Eosinophils (%) (Auto) 1, Basophils (%) (Auto) 0, Neutrophils # (Auto) 6.3, Lymphocytes # (Auto) 1.1, Monocytes # (Auto) 1.0, Eosinophils # (Auto) 0.1, Basophils # (Auto) 0.0, Immature Granulocyte # (Auto) 0.2H, Sodium Level 140, Potassium Level 4.3, Chloride Level 101, Carbon Dioxide Level 31, Anion Gap 8, Blood Urea Nitrogen 28H, Creatinine 1.16, Estimat Glomerular Filtration Rate 48, BUN/Creatinine Ratio 24, Glucose Level 77, Calcium Level 8.9, Magnesium Level 2.1 06/22/22 05:19: Glucometer 82 Microbiology 06/15/22 Urine Culture - Final, Complete Escherichia coli Mixed Bacterial Belinda 06/15/22 Blood Culture - Final, Complete No growth 06/15/22 MRSA Screen - Final, Complete MRSA not isolated Patient resulted labs reviewed. Pending Labs Laboratory Tests 06/22/22 05:11: White Blood Count 8.6, Red Blood Count 5.09, Hemoglobin 15.1, Hematocrit 48, Mean Corpuscular Volume 94, Mean Corpuscular Hemoglobin 30, Mean Corpuscular Hemoglobin Concent 32, Red Cell Distribution Width 14.7, Platelet Count 213, Mean Platelet Volume 9.8, Immature Granulocyte % (Auto) 2, Neutrophils (%) (Auto) 73, Lymphocytes (%) (Auto) 13, Monocytes (%) (Auto) 11, Eosinophils (%) (Auto) 1, Basophils (%) (Auto) 0, Neutrophils # (Auto) 6.3, Lymphocytes # (Auto) 1.1, Monocytes # (Auto) 1.0, Eosinophils # (Auto) 0.1, Basophils # (Auto) 0.0, Immature Granulocyte # (Auto) 0.2, Sodium Level 140, Potassium Level 4.3, Chloride Level 101, Carbon Dioxide Level 31, Anion Gap 8, Blood Urea Nitrogen 28, Creatinine 1.16, Estimat Glomerular Filtration Rate 48, BUN/Creatinine Ratio 24, Glucose Level 77, Calcium Level 8.9, Magnesium Level 2.1 06/22/22 05:19: Glucometer 82 Imaging: Reviewed Imaging Films, Reviewed Imaging Report Discharge Home Medications: Active Scripts Active Probiotic (Lactobacillus Acidophilus) 10 Billion Cell Capsule 1 Each PO BID Prednisone 10 Mg Tab.ds.pk 10 Mg PO DAILY Take 6 tabs(60mg)daily,decrease by 1 tab(10MG)daily. Sildenafil (Sildenafil Citrate) 20 Mg Tablet 20 Mg PO TID Reported Clonidine HCl 0.1 Mg Tablet 0.1 Mg PO DAILY PRN Aspirin EC (Aspirin) 81 Mg Tablet.dr 81 Mg PO DAILY Magnesium Oxide 400 Mg Tablet 400 Mg PO HS Myrbetriq (Mirabegron) 25 Mg Tab.er.24h 25 Mg PO HS Atorvastatin Calcium 40 Mg Tablet 40 Mg PO HS Amlodipine Besylate 10 Mg Tablet 10 Mg PO DAILY Metoprolol Succinate 100 Mg Tab.er.24h 100 Mg PO HS Losartan Potassium 100 Mg Tablet 100 Mg PO HS Lyrica (Pregabalin) 25 Mg Capsule 25 Mg PO BID Instructions to patient/family Please see electronic discharge instructions given to patient. BELIA PRICE MD Jun 22, 2022 11:50
[2022-06-22 12:29] VITALS: BP 127/73
== END 2022-06-22 13:27 | disposition home health service (06) | DRG 871 ==
LOC: EDUNIT# 15:50 → ER 15:52 → ICU 17:00 → 4TH 06-20 13:20
PROVIDERS: ADMIT Internal Medicine; ATTEND Internal Medicine
PROC: 5A09357 Assistance with Respiratory Ventilation, Less than 24 Consecutive Hours, Continuous Positive Airway Pressure (ICD-10-PCS; principal; 2022-06-16)
PROC: 5A0945A Assistance with Respiratory Ventilation, 24-96 Consecutive Hours, High Flow/Velocity Cannula (ICD-10-PCS; 2022-06-18)
DX: A41.51 Sepsis due to Escherichia coli [E. coli] (principal); J18.9 Pneumonia, unspecified organism; J96.02 Acute respiratory failure with hypercapnia; J96.01 Acute respiratory failure with hypoxia; N39.0 Urinary tract infection, site not specified; E87.20 Acidosis, unspecified; J44.0 Chronic obstructive pulmonary disease with (acute) lower respiratory infection; J44.1 Chronic obstructive pulmonary disease with (acute) exacerbation; N17.9 Acute kidney failure, unspecified; Z20.822 Contact with and (suspected) exposure to COVID-19; R65.20 Severe sepsis without septic shock; E16.2 Hypoglycemia, unspecified; E87.5 Hyperkalemia; I12.9 Hypertensive chronic kidney disease with stage 1 through stage 4 chronic kidney disease, or unspecified chronic kidney disease; N18.9 Chronic kidney disease, unspecified; E66.9 Obesity, unspecified; Z68.34 Body mass index [BMI] 34.0-34.9, adult; I27.20 Pulmonary hypertension, unspecified; I25.10 Atherosclerotic heart disease of native coronary artery without angina pectoris; E78.00 Pure hypercholesterolemia, unspecified; Z87.891 Personal history of nicotine dependence; Z23 Encounter for immunization
CPT/HCPCS: 36415; 36600; 71045; 71275; 80048; 80053; 80061; 81000; 82550; 82805; 82947; 83036; 83605; 83735; 83880; 84145; 84484; 85007; 85025; 85027; 85379; 87040; 87077; 87081; 87088; 87186; 87636; 90662; 93005; 93306; 93970; 94640; 94660; 94760; 94761; 96365; 96367; 96368; 96372; 96375

== ENCOUNTER 2022-07-25 13:07 | Inpatient (IN) | payer MEDICARE ==
[~2022-07-25] VITALS: Ht 162 cm; Wt 79.6 kg
[~2022-07-25 13:07] MED LIST: AMLO-251 PO; ASPI-1238 PO; ATOR40TA70 PO; CLN.1T PO; LACT1CAP62 PO; LOSA100T57 PO; MAGN400T7 PO; MIRA25TA PO; MTP100TCR PO; PRED10TA22 PO; PREG25CA PO; SILD20TA14 PO
[2022-07-25] MEDS ORDERED: DOXYCYCLINE 100 MG (VIBRAMYCIN) TABLET PO STA (13:16)
[2022-07-25] MEDS ORDERED: cefTRIAXone 1 GM PRE-MIX 50 ML IV ONE (13:30)
[2022-07-25 13:32] LABS: BASOPHILS % (AUTO) 1 % (0-10); EOSINOPHILS # (AUTO) 0.2 10^3/uL (0.0-0.3); EOSINOPHILS % (AUTO) 3 % (0-10); HEMATOCRIT 41 % (35-52); HEMOGLOBIN 12.8 g/dL (11.5-16.0); LYMPHOCYTES # (AUTO) 1.9 10^3/uL (1.0-4.0); LYMPHOCYTES % (AUTO) 25 % (12-44); MEAN CORPUSCULAR HEMOGLOBIN 29 pg (25-34); MEAN CORPUSCULAR HGB CONC 31 g/dL (32-36); MEAN CORPUSCULAR VOLUME 94 fL (80-99); MEAN PLATELET VOLUME 9.5 fL (9.0-12.2); MONOCYTES # (AUTO) 0.7 10^3/uL (0.0-1.0); MONOCYTES % (AUTO) 9 % (0-12); NEUTROPHILS # (AUTO) 4.6 10^3/uL (1.8-7.8); NEUTROPHILS % (AUTO) 61 % (42-75); PLATELET COUNT 336 10^3/uL (130-400); WHITE BLOOD COUNT 7.6 10^3/uL (4.3-11.0)
--- NOTE | 2022-07-25 13:41 | ED Respiratory ---
General Chief Complaint: Respiratory Problems Stated Complaint: SOB | LOW OXYGEN LEVEL Nursing Triage Note: RECENTLY HAD COVID AND PNEUMONIA THE LAST TWO WEEKS AND STATES SHE JUST FEELS WEEK. PT STATES SHE THINKS HER OXYGEN CAME OFF IN THE MIDDLE OF THE NIGHT AND HAS NOT BEEN ABLE TO GET HER O2 LEVELS ABOVE 85%. PT STATES SHE USUALLY WEARS OXYGEN AT 3L. Source: patient, family, EMS Exam Limitations: no limitations History of Present Illness Date Seen by Provider: Jul 25, 2022 Time Seen by Provider: 13:00 Initial Comments 76-year-old female with past medical history of COPD on baseline 2 to 3 L oxygen that is been feeling more short of breath over the past several weeks. She had COVID recently, has never felt the same since. Also had pneumonia, has been off antibiotics for couple weeks. Feeling more short of breath since waking up. She believes her oxygen came off in the middle the night, and has been unable to get her oxygen above 85% at home. Denies any fever, vomiting, diarrhea, focal weakness, numbness, headache, vision changes, or any other concerns. Allergies and Home Medications Allergies Coded Allergies: No Known Drug Allergies (Unverified , 06/15/22) Patient Home Medication List Home Medication List Reviewed: Yes Amlodipine Besylate (Amlodipine Besylate) 10 Mg Tablet, 10 MG PO DAILY, (Reported) Entered as Reported by: ZULEIKA ROSALES on 06/16/22 1050 Aspirin (Aspirin EC) 81 Mg Tablet.dr, 81 MG PO DAILY, (Reported) Entered as Reported by: ZULEIKA ROSALES on 06/16/22 1224 Atorvastatin Calcium (Atorvastatin Calcium) 40 Mg Tablet, 40 MG PO HS, (Reported) Entered as Reported by: ZULEIKA ROSALES on 06/16/22 1050 Lactobacillus Acidophilus (Probiotic) 10 Billion Cell Capsule, 1 EACH PO BID Prescribed by: BELIA PRICE on 06/22/22 1149 Magnesium Oxide (Magnesium Oxide) 400 Mg Tablet, 400 MG PO HS, (Reported) Entered as Reported by: ZULEIKA ROSALES on 06/16/22 1050 Metoprolol Succinate (Metoprolol Succinate) 100 Mg Tab.er.24h, 100 MG PO HS, (Reported) Entered as Reported by: ZULEIKA ROSALES on 06/16/22 1050 Mirabegron (Myrbetriq) 25 Mg Tab.er.24h, 25 MG PO HS, (Reported) Entered as Reported by: ZULEIKA ROSALES on 06/16/22 1050 Prednisone (Prednisone) 10 Mg Tab.ds.pk, 10 MG PO DAILY Prescribed by: BELIA PRICE on 06/22/22 1022 Pregabalin (Lyrica) 25 Mg Capsule, 25 MG PO BID, (Reported) Entered as Reported by: ZULEIKA ROSALES on 06/16/22 1050 Sildenafil Citrate (Sildenafil) 20 Mg Tablet, 20 MG PO TID Prescribed by: BELIA PRICE on 06/22/22 1022 Review of Systems Review of Systems Constitutional: No fever EENTM: no symptoms reported Respiratory: see HPI Cardiovascular: no symptoms reported Gastrointestinal: no symptoms reported Genitourinary: no symptoms reported Musculoskeletal: no symptoms reported Skin: no symptoms reported Psychiatric/Neurological: No Symptoms Reported Hematologic/Lymphatic: No Symptoms Reported Immunological/Allergic: no symptoms reported All Other Systems Reviewed Negative Unless Noted: Yes Past Zuzrfem-Hnabue-Vutjqh Hx Patient Social History Tobacco Use?: No Smoking Status: Former Smoker Substance use?: No Alcohol Use?: No Immunizations Up To Date COVID19 Vaccine Database Analyst: UNKONWJuan [place] Past Medical History COPD Coronary Artery Disease, High Cholesterol, Hypertension Renal Failure Family Medical History No Pertinent Family Hx Physical Exam Vital Signs - First Documented 07/25/22 13:12 Temp 36.4 Pulse 84 Resp 16 Pulse Ox 90 O2 Delivery Nasal Cannula O2 Flow Rate 3.00 Capillary Refill : Less Than 3 Seconds Height: '" Weight: lbs. oz. kg; 33.00 BMI Method: General Appearance: WD/WN, no apparent distress HEENT: PERRL/EOMI, normal ENT inspection, pharynx normal Neck: non-tender, full range of motion, supple, normal inspection Respiratory: chest non-tender, no respiratory distress, no accessory muscle use, crackles Cardiovascular: regular rate, rhythm, no murmur Gastrointestinal: normal bowel sounds, non tender, soft; No distended, No guarding, No rebound Extremities: normal range of motion, non-tender, normal inspection, no calf tenderness, normal capillary refill, pedal edema Neurologic/Psychiatric: no motor/sensory deficits, alert, normal mood/affect Skin: normal color, warm/dry Lymphatic: no adenopathy Focused Exam Lactate Level 07/25/22 13:20: Lactic Acid Level 1.92 Lactic Acid Level Laboratory Tests Test 07/25/22 13:20 Lactic Acid Level 1.92 MMOL/L (0.50-2.00) Progress/Results/Core Measures Suspected Sepsis SIRS Temperature: Pulse: 84 Respiratory Rate: 16 Laboratory Tests 07/25/22 13:20: White Blood Count 7.6 Blood Pressure / Mean: 07/25/22 13:20: Lactic Acid Level 1.92 Laboratory Tests 07/25/22 13:20: Creatinine 1.38H, INR Comment 1.0, Platelet Count 336, Total Bilirubin 0.5 Results/Orders Lab Results Laboratory Tests Test 07/25/22 13:20 Range/Units White Blood Count 7.6 4.3-11.0 10^3/uL Red Blood Count 4.35 3.80-5.11 10^6/uL Hemoglobin 12.8 11.5-16.0 g/dL Hematocrit 41 35-52 % Mean Corpuscular Volume 94 80-99 fL Mean Corpuscular Hemoglobin 29 25-34 pg Mean Corpuscular Hemoglobin Concent 31 L 32-36 g/dL Red Cell Distribution Width 14.5 10.0-14.5 % Platelet Count 336 130-400 10^3/uL Mean Platelet Volume 9.5 9.0-12.2 fL Immature Granulocyte % (Auto) 3 % Neutrophils (%) (Auto) 61 42-75 % Lymphocytes (%) (Auto) 25 12-44 % Monocytes (%) (Auto) 9 0-12 % Eosinophils (%) (Auto) 3 0-10 % Basophils (%) (Auto) 1 0-10 % Neutrophils # (Auto) 4.6 1.8-7.8 10^3/uL Lymphocytes # (Auto) 1.9 1.0-4.0 10^3/uL Monocytes # (Auto) 0.7 0.0-1.0 10^3/uL Eosinophils # (Auto) 0.2 0.0-0.3 10^3/uL Basophils # (Auto) 0.0 0.0-0.1 10^3/uL Immature Granulocyte # (Auto) 0.2 H 0.0-0.1 10^3/uL Prothrombin Time 13.1 12.2-14.7 SEC INR Comment 1.0 0.8-1.4 Activated Partial Thromboplast Time 31 24-35 SEC Sodium Level 140 135-145 MMOL/L Potassium Level 4.2 3.6-5.0 MMOL/L Chloride Level 99 98-107 MMOL/L Carbon Dioxide Level 28 21-32 MMOL/L Anion Gap 13 5-14 MMOL/L Blood Urea Nitrogen 16 7-18 MG/DL Creatinine 1.38 H 0.60-1.30 MG/DL Estimat Glomerular Filtration Rate 39 BUN/Creatinine Ratio 12 Glucose Level 114 H 70-105 MG/DL Lactic Acid Level 1.92 0.50-2.00 MMOL/L Calcium Level 9.4 8.5-10.1 MG/DL Corrected Calcium 10.1 8.5-10.1 MG/DL Magnesium Level 2.0 1.6-2.4 MG/DL Total Bilirubin 0.5 0.1-1.0 MG/DL Aspartate Amino Transf (AST/SGOT) 18 5-34 U/L Alanine Aminotransferase (ALT/SGPT) 25 0-55 U/L Alkaline Phosphatase 115 40-136 U/L Troponin I 0.029 H <0.028 NG/ML B-Type Natriuretic Peptide 212.3 H <100.0 PG/ML Total Protein 6.9 6.4-8.2 GM/DL Albumin 3.1 L 3.2-4.5 GM/DL My Orders Orders - BRIANNE ARIAS MD Chest 1 View, Ap/Pa Only (07/25/22 13:16) Ed Iv/Invasive Line Start (07/25/22 13:16) Ekg Tracing (07/25/22 13:16) O2 (07/25/22 13:16) Monitor-Rhythm Ecg Trace Only (07/25/22 13:16) Cbc With Automated Diff (07/25/22 13:16) Comprehensive Metabolic Panel (07/25/22 13:16) Magnesium (07/25/22 13:16) Protime With Inr (07/25/22 13:16) Partial Thromboplastin Time (07/25/22 13:16) Troponin I Mary Ellen (07/25/22 13:16) Bnp Mary Ellen (07/25/22 13:16) Blood Culture (07/25/22 13:16) Lactic Acid Analyzer (07/25/22 13:16) Ceftriaxone 1 Gm Pre-Mix (Rocephin 1 Gm (07/25/22 13:30) Doxycycline Hyclate Tablet (Vibramycin T (07/25/22 13:16) Ns Iv 500 Ml (Sodium Chloride 0.9%) (07/25/22 14:00) Aspirin Chewable Tablet (Baby Aspirin Ch (07/25/22 14:30) Ed Admission (Communication) (07/25/22 14:27) Medications Given in ED Current Medications Medications Dose Ordered Sig/Gloria Route Start Time Stop Time Status Last Admin Dose Admin Ceftriaxone Sodium/Dextrose 50 ml @ 100 mls/hr ONCE ONCE IV 07/25/22 13:30 07/25/22 13:59 DC 07/25/22 14:06 100 MLS/HR Sodium Chloride 500 ml @ 0 mls/hr Q0M ONCE IV 07/25/22 14:00 07/25/22 14:01 DC 07/25/22 14:02 500 MLS/HR Vital Signs/I&O 07/25/22 13:12 Temp 36.4 Pulse 84 Resp 16 B/P (MAP) Pulse Ox 90 O2 Delivery Nasal Cannula O2 Flow Rate 3.00 Capillary Refill : Less Than 3 Seconds Progress Note : Progress Note 68-year-old female with above history coming in due to shortness of breath. Patient's oxygen was 89% on her baseline oxygen which needed to be turned up. She did have crackles on lung exam. Chest x-ray with pneumonia versus pulmonary edema. Blood pressure dropped to the 90s systolic. I did a [id number] ultrasound showing it appeared to be a normal ejection fraction and completely collapsible IVC. Give her a gentle bolus of IV fluids given her history of pulmonary hypertension. We will start her on ceftriaxone and doxycycline. Labs otherwise with BNP down from prior, troponin slightly positive, normal white blood cell count. I discussed the case with Dr. Sanchez given her acute on chronic respiratory failure with increasing oxygen requirement, NSTEMI, likely pneumonia on chest x-ray. He will admit the patient under observation status to the floor with telemetry. I then contacted Dr. Montesinos for consultation as well. ECG Initial ECG Impression Date: Jul 25, 2022 Initial ECG Impression Time: 13:41 Initial ECG Rate: 74 Initial ECG Rhythm: Normal Sinus Comment Narrow QRS, borderline left axis deviation, some ST depression in the inferior leads, no STEMI Diagnostic Imaging Diagonstic Imaging: Xray Plain Films/CT/US/NM/MRI: chest Comments [facility] [place], [place] NAME: [facility] REC#: [id number] PT STATUS: REG ER : 1945 PHYSICIAN: BRIANNE ARIAS MD ADMIT DATE: 07/25/22/ER Draft Date of Exam:07/25/22 CHEST 1 VIEW, AP/PA ONLY EXAMINATION: Chest, one view. HISTORY: SOB, COPD. COMPARISON: 06/15/2022. FINDINGS: Heart size and pulmonary vasculature are normal. Patchy interstitial opacities within the mid and lower lungs. No pleural effusion or pneumothorax. The osseous structures are intact. IMPRESSION: 1. Patchy interstitial opacities within the mid and lower lungs. Findings could be seen with atelectasis/scarring, pulmonary edema, or pneumonia. Dictated on workstation # [id number] Dict: 07/25/22 1401 Trans: 07/25/22 1404 [id number] Interpreted by: OLIVER ANGELES DO Electronically signed by: Departure Impression Primary Impression: Acute on chronic respiratory failure with hypoxia Additional Impressions: Pulmonary hypertension PNA (pneumonia) Qualified Codes: J18.9 - Pneumonia, unspecified organism NSTEMI (non-ST elevated myocardial infarction) Disposition: ADMITTED INPATIENT Condition: Stable Admissions Decision to Admit Reason: Admit from ER (General) Decision to Admit/Date: Jul 25, 2022 Time/Decision to Admit Time: 14:25 Departure-Patient Inst. Referrals: NEVILLE LOZANO MD (PCP/Family) Primary Care Physician BRIANNE ARIAS MD Jul 25, 2022 13:41
[2022-07-25 13:48] LABS: ALBUMIN 3.1 GM/DL (3.2-4.5); PROTHROMBIN TIME PATIENT 13.1 SEC (12.2-14.7)
[2022-07-25 13:49] LABS: POTASSIUM 4.2 MMOL/L (3.6-5.0)
[2022-07-25 13:50] LABS: CALCIUM 9.4 MG/DL (8.5-10.1)
[2022-07-25 13:51] LABS: TOTAL PROTEIN 6.9 GM/DL (6.4-8.2)
[2022-07-25 13:53] LABS: BILIRUBIN,TOTAL 0.5 MG/DL (0.1-1.0)
[2022-07-25 13:55] LABS: CREATININE SERUM 1.38 MG/DL (0.60-1.30)
[2022-07-25] MEDS ORDERED: NS IV 500 ML 500 ML IV ONE (14:00)
--- NOTE | 2022-07-25 14:05 | Diagnostic Imaging Report ---
EXAMINATION: Chest, one view. HISTORY: SOB, COPD. COMPARISON: 06/15/2022. FINDINGS: Heart size and pulmonary vasculature are normal. Patchy interstitial opacities within the mid and lower lungs. No pleural effusion or pneumothorax. The osseous structures are intact. IMPRESSION: 1. Patchy interstitial opacities within the mid and lower lungs. Findings could be seen with atelectasis/scarring, pulmonary edema, or pneumonia. Dictated by: Dictated on workstation # [id number]
[2022-07-25] MEDS ORDERED: ASPIRIN 81 MG CHEW (CHILDREN'S ASA) PO ONE (14:30)
[2022-07-25] MEDS ORDERED: ONDANSETRON 4 MG/2 ML (SDV) Z0FRAN IV PRN (16:00)
[2022-07-25] MEDS ORDERED: ACETAMINOPHEN 325 MG TABLET PO PRN (16:00)
[2022-07-25] MEDS ORDERED: diphenhydrAMINE 25 MG TAB (BENADRYL) PO PRN (16:00)
[2022-07-25] MEDS ORDERED: MILK OF MAGNESIA 400 MG/5 ML 30 ML UDC PO PRN (16:00)
[2022-07-25] MEDS ORDERED: NON-FORMULARY MEDICATION 1 EA EA PO SCH (16:00)
[2022-07-25] MEDS ORDERED: diphenhydrAMINE 50 MG/ML INJ (BENADRYL) IVP PRN (16:00)
[2022-07-25] MEDS ORDERED: polyethylene glycoL POWDER 17 GM (MIRALAX) PACK PO PRN (16:00)
[2022-07-25] MEDS ORDERED: NS IV 500 ML 500 ML IV PRN (16:00)
[2022-07-25] MEDS ORDERED: ANTACID SUSP 30 ML UDC (MYLANTA) PO PRN (16:00)
[2022-07-25] MEDS ORDERED: MELATONIN 3 MG TABLET PO PRN (16:00)
[2022-07-25] MEDS ORDERED: BISACODYL 10 MG SUPP (DULCOLAX) PR PRN (16:00)
[2022-07-25] MEDS ORDERED: LACTULOSE SYRUP 10GM/15ML (ENULOSE) 30ML UDC PO PRN (16:00)
[2022-07-25] MEDS ORDERED: CALCIUM CARBONATE 500 MG (TUMS) TAB.CHEW PO PRN (16:00)
[2022-07-25] MEDS ORDERED: ONDANSETRON 4 MG (ZOFRAN) ORAL DISSOLVE TAB PO PRN (16:00)
--- NOTE | 2022-07-25 16:01 | Consultation-Cardiology ---
HPI-Cardiology Cardiology Consultation Date of Consultation 07/25/22 Date of Admission Time Seen by Provider: 15:49 Indication: Pulmonary hypertension HPI 76-year-old lady with past medical history of severe COPD, oxygen dependent, severe pulmonary hypertension. Patient was in the hospital until recently. She was on steroid tapering dose until last week. Today she felt lethargic and tired, had no energy, noted to be hypotensive and hypoxemic. Came into the emergency room and started on IV fluid. On my evaluation she was feeling better. Had mild pedal edema. No chest pain. No syncope. Home Medications & Allergies Allergies: Coded Allergies: No Known Drug Allergies (Unverified , 06/15/22) Home Medication List Reviewed: Yes [id number] Hx Patient Social History Marital Status: Employed/Student: retired Smoking Status: Former Smoker Alcohol Use?: No Past Medical History Discussed below Family Medical History Significant Family History: No Pertinent Family Hx Review of Systems-General Review of Systems Constitutional: No fever; malaise, weakness EENTM: no symptoms reported Respiratory: see HPI, orthopnea, short of breath Cardiovascular: see HPI; No chest pain; edema; No Hx of Intervention, No palpitations, No syncope, No vascular heart diseas, No other Gastrointestinal: no symptoms reported, see HPI Genitourinary: no symptoms reported, see HPI Musculoskeletal: no symptoms reported, see HPI Skin: no symptoms reported, see HPI Psychiatric/Neurological: No Symptoms Reported, See HPI All Other Systems Reviewed Negative Unless Noted: Yes Reviewed Test Results Reviewed Test Results Lab Laboratory Tests Test 07/25/22 13:20 Range/Units White Blood Count 7.6 4.3-11.0 10^3/uL Red Blood Count 4.35 3.80-5.11 10^6/uL Hemoglobin 12.8 11.5-16.0 g/dL Hematocrit 41 35-52 % Mean Corpuscular Volume 94 80-99 fL Mean Corpuscular Hemoglobin 29 25-34 pg Mean Corpuscular Hemoglobin Concent 31 L 32-36 g/dL Red Cell Distribution Width 14.5 10.0-14.5 % Platelet Count 336 130-400 10^3/uL Mean Platelet Volume 9.5 9.0-12.2 fL Immature Granulocyte % (Auto) 3 % Neutrophils (%) (Auto) 61 42-75 % Lymphocytes (%) (Auto) 25 12-44 % Monocytes (%) (Auto) 9 0-12 % Eosinophils (%) (Auto) 3 0-10 % Basophils (%) (Auto) 1 0-10 % Neutrophils # (Auto) 4.6 1.8-7.8 10^3/uL Lymphocytes # (Auto) 1.9 1.0-4.0 10^3/uL Monocytes # (Auto) 0.7 0.0-1.0 10^3/uL Eosinophils # (Auto) 0.2 0.0-0.3 10^3/uL Basophils # (Auto) 0.0 0.0-0.1 10^3/uL Immature Granulocyte # (Auto) 0.2 H 0.0-0.1 10^3/uL Prothrombin Time 13.1 12.2-14.7 SEC INR Comment 1.0 0.8-1.4 Activated Partial Thromboplast Time 31 24-35 SEC Sodium Level 140 135-145 MMOL/L Potassium Level 4.2 3.6-5.0 MMOL/L Chloride Level 99 98-107 MMOL/L Carbon Dioxide Level 28 21-32 MMOL/L Anion Gap 13 5-14 MMOL/L Blood Urea Nitrogen 16 7-18 MG/DL Creatinine 1.38 H 0.60-1.30 MG/DL Estimat Glomerular Filtration Rate 39 BUN/Creatinine Ratio 12 Glucose Level 114 H 70-105 MG/DL Lactic Acid Level 1.92 0.50-2.00 MMOL/L Calcium Level 9.4 8.5-10.1 MG/DL Corrected Calcium 10.1 8.5-10.1 MG/DL Magnesium Level 2.0 1.6-2.4 MG/DL Total Bilirubin 0.5 0.1-1.0 MG/DL Aspartate Amino Transf (AST/SGOT) 18 5-34 U/L Alanine Aminotransferase (ALT/SGPT) 25 0-55 U/L Alkaline Phosphatase 115 40-136 U/L Troponin I 0.029 H <0.028 NG/ML B-Type Natriuretic Peptide 212.3 H <100.0 PG/ML Total Protein 6.9 6.4-8.2 GM/DL Albumin 3.1 L 3.2-4.5 GM/DL Physical Exam Physical Exam Vital Signs Vital Signs - First Documented 07/25/22 13:12 Temp 36.4 Pulse 84 Resp 16 Pulse Ox 90 O2 Delivery Nasal Cannula O2 Flow Rate 3.00 Capillary Refill : Less Than 3 Seconds Height, Weight, BMI Height: '" Weight: lbs. oz. kg; 33.00 BMI Method: General Appearance: No Apparent Distress, WD/WN Eyes: Bilateral Eye Normal Inspection, Bilateral Eye PERRL, Bilateral Eye EOMI HEENT: PERRL/EOMI, TMs Normal, Normal ENT Inspection, Pharynx Normal, Moist Mucous Membranes Neck: Full Range of Motion, Normal Inspection, Non Tender, Supple, Carotid Bruit Respiratory: Chest Non Tender, Normal Breath Sounds, No Accessory Muscle Use, No Respiratory Distress Cardiovascular: Regular Rate, Rhythm, No Gallop, No JVD, Normal Peripheral Pulses, Systolic Murmur Gastrointestinal: Normal Bowel Sounds, No Organomegaly, No Pulsatile Mass, Non Tender, Soft Back: Normal Inspection, No CVA Tenderness, No Vertebral Tenderness Extremity: Normal Capillary Refill, Normal Inspection, Normal Range of Motion, Non Tender, No Calf Tenderness, Pedal Edema Neurologic/Psychiatric: Alert, Oriented x3, No Motor/Sensory Deficits, Normal M ood/Affect Skin: Normal Color, Warm/Dry Lymphatic: No Adenopathy A/P-Cardiology Admission Diagnosis Hypotension Pulm Hypertension Assessment/Plan Generalized malaise and loss of energy, hypotension, probably secondary to aggressive diuresis, patient is intravascularly volume depleted although she still have significant pedal edema. Received IV fluid, blood pressure is better and she is feeling better Severe COPD with acute exacerbation, oxygen dependent at home using 3 L Currently on 5 L nasal cannula, managed by primary care physician Severe pulmonary hypertension, unknown etiology No shunt was identified by bubble as well as echocardiogram CTA of the chest showed no pulmonary embolism, bronchiectasis was noted Started on Viagra during the last hospitalization and responded well to treatment. Sepsis and pneumonia, receiving antibiotic Managed by medical team 2D echo done on June 16, 2022 showing normal left ventricular size with moderate left ventricular hypertrophy, systolic function is preserved ejection fraction 60 to 65%, grade 2 diastolic dysfunction, enlarged right atrium and dilated right heart chambers. Severe pulmonary hypertension with PA pressure 75 to 80 mmHg. Questionable history of coronary artery disease, patient reporting that 2 years ago she had a stress test then a cardiac catheterization did not require any stenting or intervention. Continue to monitor History of hypertension, currently hypotensive. Responded to IV fluid, monitor blood pressure Chronic renal insufficiency, continue to monitor renal function. NEHEMIAS CHÁVEZ MD Jul 25, 2022 16:01
[2022-07-25 16:16] VITALS: BP 115/66
[2022-07-25] MEDS ORDERED: RT-ALBUTEROL/IPRATROPIUM 3 ML (DUONEB) VIAL INH PRN (16:30)
[2022-07-25] MEDS: cefTRIAXone 1 GM PRE-MIX 50 ML IV SCH (17:05)
[2022-07-25] MEDS: ENOXAPARIN 40 MG/0.4 ML (LOVENOX) SYR SC SCH (17:30)
[2022-07-25] MEDS: DOXYCYCLINE 100 MG (VIBRAMYCIN) TABLET PO SCH (17:30)
[2022-07-25] MEDS: NS IV 1000 ML 1,000 ML IV SCH (17:31)
[2022-07-25] MEDS: RT-ALBUTEROL/IPRATROPIUM 3 ML (DUONEB) VIAL INH SCH ×2 (18:39→21:51)
[2022-07-25] MEDS: SENNOSIDES 8.6 MG (SENOKOT) TAB PO SCH (19:38)
[2022-07-25] MEDS: DOCUSATE SODIUM 100 MG (COLACE) CAP PO SCH (19:38)
[2022-07-25] MEDS: SILDENAFIL 20 MG (REVATIO) TAB PO SCH (19:38)
[2022-07-25] MEDS: PREGABALIN 25 MG (LYRICA) CAPSULE PO SCH (19:38)
[2022-07-25 19:39] VITALS: BP 111/67
[2022-07-25 20:04] VITALS: BP 122/73
[2022-07-25 23:30] VITALS: BP 110/61
[2022-07-26] VITALS (7 sets, daily range): BP systolic 114–142; BP diastolic 59–84
[2022-07-26] MEDS: RT-ALBUTEROL/IPRATROPIUM 3 ML (DUONEB) VIAL INH SCH ×6 (02:33→21:18)
[2022-07-26] MEDS: NS IV 1000 ML 1,000 ML IV SCH (06:14)
[2022-07-26] MEDS: DOXYCYCLINE 100 MG (VIBRAMYCIN) TABLET PO SCH ×2 (06:14→16:13)
[2022-07-26 06:17] LABS: CALCIUM 8.4 MG/DL (8.5-10.1); CREATININE SERUM 1.16 MG/DL (0.60-1.30); MAGNESIUM 1.8 MG/DL (1.6-2.4); POTASSIUM 3.5 MMOL/L (3.6-5.0)
[2022-07-26] MEDS: MAGNESIUM 1 GM/100 ML IVPB 100 ML IV SCH (06:22)
[2022-07-26] MEDS: POTASSIUM CL 10MEQ/50ML IVPB 50 ML IV SCH (06:22)
[2022-07-26] MEDS: KCL 20 MEQ TAB (K-DUR) PO SCH (06:22)
--- NOTE | 2022-07-26 08:17 | Physical Therapy Progress Note ---
Therapy Progress Note Order for PT evaluation received. Patient is on hold currently per nurse due to decreasing O2 levels. Will check back tomorrow. BABAK ALVARADO PT Jul 26, 2022 08:17
[2022-07-26 08:33] LABS: ABG BASE EXCESS 7.7 MMOL/L (-2.5-2.5); ABG OXYGEN SATURATION 91 % (94-100); ABG PCO2 56 MMHG (35-45); ABG PH 7.39 (7.37-7.43); ABG PO2 56 MMHG (79-93); ABG TCO2 34.4 MMOL/L (21.0-31.0)
[2022-07-26 08:34] LABS: ALLENS TEST YES-POS
[2022-07-26 08:35] LABS: INSPIRED O2 10 L; PATIENT TEMP 37; VENTILATOR NO
[2022-07-26] MEDS: SILDENAFIL 20 MG (REVATIO) TAB PO SCH ×3 (08:58→20:20)
[2022-07-26] MEDS: ASPIRIN 81 MG CHEW (CHILDREN'S ASA) PO SCH (08:58)
[2022-07-26] MEDS: PREGABALIN 25 MG (LYRICA) CAPSULE PO SCH ×2 (08:58→20:20)
[2022-07-26] MEDS: SENNOSIDES 8.6 MG (SENOKOT) TAB PO SCH ×2 (08:59→20:20)
[2022-07-26] MEDS: DOCUSATE SODIUM 100 MG (COLACE) CAP PO SCH ×2 (08:59→20:20)
[2022-07-26] MEDS ORDERED: KCL 20 MEQ TAB (K-DUR) PO ONE (09:00)
--- NOTE | 2022-07-26 11:29 | Progress Note - Cardiology ---
Cardiology SOAP Progress Note Subjective: Sitting up in bed States she had low oxygen sats this morning, but didn't really feel anymore SOB No c/o CP or palpitations Reports LE swelling is better Objective: I&O/Vital Signs 07/25/22 07/26/22 07/26/22 07/26/22 23:30 01:00 02:33 03:22 Temp 36.6 36.9 Pulse 100 95 105 Resp 20 20 B/P (MAP) 110/61 (77) 123/64 (83) Pulse Ox 92 89 90 O2 Delivery Nasal Cannula Nasal Cannula Nasal Cannula O2 Flow Rate 3.00 4.00 4.00 3.00 07/26/22 07/26/22 07/26/22 07/26/22 07:00 07:10 08:00 08:15 Temp 36.6 Pulse 107 108 Resp 22 B/P (MAP) 142/78 (99) Pulse Ox 90 95 O2 Delivery Nasal Cannula Vapotherm Nasal Cannula O2 Flow Rate 4.00 35.00 4.00 07/26/22 07/26/22 07/26/22 07/26/22 08:50 08:55 09:50 11:01 Pulse 101 Resp 20 B/P (MAP) 115/59 (77) Pulse Ox 93 95 96 95 O2 Delivery Vapotherm Vapotherm Vapotherm Vapotherm O2 Flow Rate 35.00 30.00 FiO2 85 75 07/26/22 00:00 Intake Total 250 ml Balance 250 ml Constitutional: AAO x 3, well-developed, well-nourished Respiratory: No accessory muscle use, No respiratory distress; chest expansion is symmetric, chest is bilaterally symmetric, rhonchi (scattered), other (diminished lower lobes bilat) Cardiovascular: regular rate-rhythm; No JVD; S1 and S2 Gastrointestional: No tender; soft, round, audible bowel sounds Extremities: other (mild to mod bilat LE swelling) Neurologic/Psychiatric: grossly intact (moves all extremities) Skin: No rash on exposed areas, No ulcerations on exposed areas Results/Procedures: Labs Laboratory Tests 07/25/22 13:20: White Blood Count 7.6, Red Blood Count 4.35, Hemoglobin 12.8, Hematocrit 41, Mean Corpuscular Volume 94, Mean Corpuscular Hemoglobin 29, Mean Corpuscular Hemoglobin Concent 31L, Red Cell Distribution Width 14.5, Platelet Count 336, Mean Platelet Volume 9.5, Immature Granulocyte % (Auto) 3, Neutrophils (%) (Auto) 61, Lymphocytes (%) (Auto) 25, Monocytes (%) (Auto) 9, Eosinophils (%) (Auto) 3, Basophils (%) (Auto) 1, Neutrophils # (Auto) 4.6, Lymphocytes # (Auto) 1.9, Monocytes # (Auto) 0.7, Eosinophils # (Auto) 0.2, Basophils # (Auto) 0.0, Immature Granulocyte # (Auto) 0.2H, Prothrombin Time 13.1, INR Comment 1.0, Activated Partial Thromboplast Time 31, Sodium Level 140, Potassium Level 4.2, Chloride Level 99, Carbon Dioxide Level 28, Anion Gap 13, Blood Urea Nitrogen 16, Creatinine 1.38H, Estimat Glomerular Filtration Rate 39, BUN/Creatinine Ratio 12, Glucose Level 114H, Lactic Acid Level 1.92, Calcium Level 9.4, Corrected Calcium 10.1, Magnesium Level 2.0, Total Bilirubin 0.5, Aspartate Amino Transf (AST/SGOT) 18, Alanine Aminotransferase (ALT/SGPT) 25, Alkaline Phosphatase 115, Troponin I 0.029H, B-Type Natriuretic Peptide 212.3H, Total Protein 6.9, Albumin 3.1L 07/26/22 05:49: Sodium Level 146H, Potassium Level 3.5L, Chloride Level 105, Carbon Dioxide Level 28, Anion Gap 13, Blood Urea Nitrogen 14, Creatinine 1.16, Estimat Glomerular Filtration Rate 48, BUN/Creatinine Ratio 12, Glucose Level 110H, Calcium Level 8.4L, Magnesium Level 1.8 07/26/22 08:24: Blood Gas Puncture Site L RAD, Blood Gas Patient Temperature 37, Arterial Blood pH 7.39, Arterial Blood Partial Pressure CO2 56H, Arterial Blood Partial Pressure O2 56L, Arterial Blood HCO3 33H, Arterial Blood Total CO2 34.4H, Arterial Blood Oxygen Saturation 91L, Arterial Blood Base Excess 7.7H, Ashok Test YES-POS, Blood Gas Ventilator Setting NO, Blood Gas Inspired Oxygen 10 L Laboratory Tests 07/25/22 13:20 07/26/22 05:49 A/P: Assessment: Multi-factorial SOB - acute on chronic exacerbation of COPD, pulmonary hypertension, pneumonia Minimal troponin elevation - likely Type 2 NM d/t sepsis, hypoxia and hypotension Severe COPD with acute exacerbation - oxygen dependent at home using 3 L - Currently on Vapo-therm Severe pulmonary hypertension - unknown etiology - No shunt was identified by bubble as well as echocardiogram per Dr. Montesinos - CTA of the chest showed no pulmonary embolism, bronchiectasis was noted - Started on Viagra during the last hospitalization and responded well to treatment. Hypotension - likely secondary to sepsis - resolved Sepsis d/t pneumonia - Managed by medical team 2D echo done on June 16, [address] Montesinos showing normal left ventricular size with moderate left ventricular hypertrophy, systolic function is preserved ejection fraction 60 to 65%, grade 2 diastolic dysfunction, enlarged right atrium and dilated right heart chambers. Severe pulmonary hypertension with PA pressure 75 to 80 mmHg. Questionable history of coronary artery disease, patient reporting that 2 years ago she had a stress test then a cardiac catheterization did not require any stenting or intervention. Reported h/o HTN Chronic renal insufficiency, continue to monitor renal function. Plan: Continue current medication regimen Monitor lab closely Replace electrolytes We have reviewed her notes from CATHY Reynolds Jul 26, 2022 11:29
--- NOTE | 2022-07-26 13:20 | Physical Therapy Evaluation ---
PT Evaluation-General Medical Diagnosis Admission Date Jul 25, 2022 at 14:29 Medical Diagnosis: SOB/ Low O2 Levls Onset Date: Jul 25, 2022 Therapy Diagnosis Therapy Diagnosis: Impaired Mobility, Generalized Weakness Precautions Precautions/Isolations: Fall Prevention, Standard Precautions Weight Bear Status Right Lower Extremity: Right Full Weight Bearing Left Lower Extremity: Left Full Weight Bearing Referral Physician: Daniel Reason for Referral: Evaluation/Treatment Medical History Pertinent Medical History: CAD, COPD, HTN, Renal Insufficiency Additional Medical History COPD Coronary Artery Disease, High Cholesterol, Hypertension Renal Failure Reviewed History: Yes Social History Home: Single Level Current Living Status: Spouse Entry Into Home: Stairs With Railing PT Steps Into Home: 2 Prior Prior Level of Function SCALE: Activities may be completed with or without assistive devices. 6-Nkvszcwhis-yzleyhz completes the activity by him/herself with no assistance from a helper. 5-Set-up or Clean-up Assistance-helper sets up or cleans up; patient completes activity. [place] assists only prior to or following the activity. 4-Supervision or Touching Assistance-helper provides verbal cues and/or touching/steadying and/or contact guard assistance as patient completes activity. Assistance may be provided throughout the activity or intermittently. 3-Partial/Moderate Assistance-helper does LESS THAN HALF the effort. [place] lifts, holds or supports trunk or limbs, but provides less than half the effort. 2-Substantial/Maximal Assistance-helper does MORE THAN HALF the effort. [place] lifts or holds trunk or limbs and provides more than half the effort. 4-[place]-ikwvhn does ALL the effort. Patient does none of the effort to complete the activity. Or, the assistance of 2 or more helpers is required for the patient to complete the activity. If activity was not attempted, code reason: 7-Patient Refused. 9-Not Applicable-not attempted and the patient did not perform the activity before the current illness, exacerbation or injury. 10-Not Attempted due to Environmental Limitations-(lack of equipment, weather restraints, etc.). 88-Not Attempted due to Medical Conditions or Safety Concerns. Bed Mobility: 6 Transfers (B,C,W/C): 6 Gait: 6 Stairs: 6 Indoor Mobility (Ambulation): Independent Stairs: Independent Prior Devices Use: Walker PT Evaluation-Current Subjective Patient in bed pre-tx, reports no pain just really tired, agrees to PT. Pt/Family Goals to be independent at home Objective Patient Orientation: Person, Place, Situation Vapotherm ROM/Strength ROM Lower Extremities BLE grossly WFL Strength Lower Extremities BLE grossly 3+/5 Sensory Sensation Right Lower Extremit: Intact Sensation Left Lower Extremity: Intact Transfers Sit to Lying (QC): 3 (mod assist with both legs) Lying to Sitting/Side of Bed(Q: 3 (Min A holding hand to pull themselves up) Sit to Stand (QC): 4 (SBA) Gait Does the Patient Walk?: Yes Mode of Locomotion: Walk Anticipated Mode of Locomotion: Walk Walk 10 feet (QC): 4 Distance: 10' Gait Assistive Device: FWW Comments/Gait Description Patient only able to walk 10' in room because of vapotherm tube. Patient seemed steady with standing and walking. Balance Sitting Static: Normal Sitting Dynamic: Normal Standing Static: Normal Standing Dynamic: Normal Treatment LE Strengthening (LAQ x10, AP x10), Ambulation Assessment/Needs Stopped exercises short due to O2 drop below 90%. Patient very tired and weak overall, but seemed steady on her feet walking 10'. Rehab Potential: Fair PT Half-Way Goals Aircraft Sales Representative Goals PT Half-Way Goals Time Frame: Aug 02, 2022 Roll Left & Right (QC): 6 Sit to Lying (QC): 6 Lying-Sitting on Side/Bed(QC): 6 Sit to Stand (QC): 6 Chair/Ump-wo-Xzypr Xfer(QC): 6 Walk 10 feet (QC): 6 Walk 50ft with 2 Turns (QC): 6 PT Plan Problem List Problem List: Activity Tolerance, Functional Strength, Safety, Balance, Gait, Transfer, Bed Mobility, ROM Treatment/Plan Treatment Plan: Continue Plan of Care Treatment Plan: Bed Mobility, Education, Functional Activity Susan, Functional Strength, Gait, Safety, Therapeutic Exercise, Transfers Treatment Duration: Aug 02, 2022 Frequency: 6 times per week Estimated Hrs Per Day: .25 hour per day Patient and/or Family Agrees t: Yes Safety Risks/Education Patient Education: Gait Training, Transfer Techniques, Correct Positioning, Safety Issues Teaching Recipient: Patient Teaching Methods: Demonstration, Discussion Response to Teaching: Reinforcement Needed Discharge Recommendations Plan Patient will perform bed mobility and transfer training, balance and endurance training, gait training and functional strengthening in order to be independent at home. Therapy Discharge Recommendati: Home & Family Time Time In: 1251 Time Out: 1305 DATE: Jul 26, 2022 Total Billed Treatment Time: 14 Total Billed Treatment 1 visit BABAK MCKENZIE PT Jul 26, 2022 13:19
[2022-07-26] MEDS ORDERED: methylPREDNISolone 40 MG/ML (Solu-MEDROL) VIAL IV NR (13:30)
[2022-07-26] MEDS ORDERED: FUROSEMIDE 40 MG/4 ML INJ (LASIX) IVP NR (13:30)
[2022-07-26] MEDS ORDERED: FURO20TA4 PO (15:23)
[2022-07-26] MEDS: cefTRIAXone 1 GM PRE-MIX 50 ML IV SCH (15:36)
[2022-07-26] MEDS: ENOXAPARIN 40 MG/0.4 ML (LOVENOX) SYR SC SCH (16:13)
--- NOTE | 2022-07-26 17:04 | Progress Note - Cardiology ---
Cardiology SOAP Progress Note Subjective: No cp or palp or syncope Improvement of shortness of breath No n/v/d No focal weakness Objective: I&O/Vital Signs 07/26/22 07/26/22 07/26/22 07/26/22 07:00 07:10 08:00 08:15 Temp 36.6 Pulse 107 108 Resp 22 B/P (MAP) 142/78 (99) Pulse Ox 90 95 O2 Delivery Nasal Cannula Vapotherm Nasal Cannula O2 Flow Rate 4.00 35.00 4.00 07/26/22 07/26/22 07/26/22 07/26/22 08:50 08:55 09:50 11:01 Pulse 101 Resp 20 B/P (MAP) 115/59 (77) Pulse Ox 93 95 96 95 O2 Delivery Vapotherm Vapotherm Vapotherm Vapotherm O2 Flow Rate 35.00 30.00 FiO2 85 75 07/26/22 07/26/22 07/26/22 11:50 13:00 15:00 Temp 36.6 Pulse 96 99 Resp 22 B/P (MAP) 114/69 (84) Pulse Ox 95 95 O2 Delivery Vapotherm Vapotherm O2 Flow Rate 75.00 30.00 30.00 FiO2 75 07/26/22 00:00 Intake Total 250 ml Balance 250 ml Constitutional: AAO x 3, well-developed, well-nourished Respiratory: No accessory muscle use, No respiratory distress; chest expansion is symmetric, chest is bilaterally symmetric, rhonchi (scattered), other (diminished lower lobes bilat) Cardiovascular: regular rate-rhythm; No JVD; S1 and S2 Gastrointestional: No tender; soft, round, audible bowel sounds Extremities: other (mild to mod bilat LE swelling) Neurologic/Psychiatric: grossly intact (moves all extremities) Skin: No rash on exposed areas, No ulcerations on exposed areas Results/Procedures: Labs Laboratory Tests 07/26/22 05:49: Sodium Level 146H, Potassium Level 3.5L, Chloride Level 105, Carbon Dioxide Level 28, Anion Gap 13, Blood Urea Nitrogen 14, Creatinine 1.16, Estimat Glomerular Filtration Rate 48, BUN/Creatinine Ratio 12, Glucose Level 110H, Calcium Level 8.4L, Magnesium Level 1.8 07/26/22 08:24: Blood Gas Puncture Site L RAD, Blood Gas Patient Temperature 37, Arterial Blood pH 7.39, Arterial Blood Partial Pressure CO2 56H, Arterial Blood Partial Pressure O2 56L, Arterial Blood HCO3 33H, Arterial Blood Total CO2 34.4H, Arterial Blood Oxygen Saturation 91L, Arterial Blood Base Excess 7.7H, Ashok Test YES-POS, Blood Gas Ventilator Setting NO, Blood Gas Inspired Oxygen 10 L Microbiology 07/25/22 Blood Culture - Preliminary, Resulted No growth Laboratory Tests 07/25/22 13:20 07/26/22 05:49 A/P: Assessment: Multi-factorial SOB - acute on chronic exacerbation of COPD, pulmonary hypertension, pneumonia Minimal troponin elevation - likely Type 2 [place] d/t sepsis, hypoxia and hypotension Severe COPD with acute exacerbation - oxygen dependent at home using 3 L - Currently on Vapo-therm Severe pulmonary hypertension - unknown etiology - No shunt was identified by bubble as well as echocardiogram per Dr. Montesinos - CTA of the chest showed no pulmonary embolism, bronchiectasis was noted - Started on sildenafil during the last hospitalization by Dr Montesinos. Hypotension - likely secondary to sepsis - resolved Sepsis d/t pneumonia - Managed by medical team 2D echo done on June 16, [address] Montesinos showing normal left ventricular size with moderate left ventricular hypertrophy, systolic function is preserved ejection fraction 60 to 65%, grade 2 diastolic dysfunction, enlarged right atrium and dilated right heart chambers. Severe pulmonary hypertension with PA pressure 75 to 80 mmHg. Questionable history of coronary artery disease, patient reporting that 2 years ago she had a stress test then a cardiac catheterization did not require any stenting or intervention. Reported h/o HTN Chronic renal insufficiency, continue to monitor renal function. Plan: Complex management due multiple comorbidities Continue current medication regimen Monitor lab closely Replace electrolytes We have reviewed her notes from Dr. Montesinos Clinical Quality Measures Type of Care: Type of Care: Pallative Care MARGARITO MCFADDEN MD FACP FAC CCDS Jul 26, 2022 17:04
[2022-07-26] MEDS: methylPREDNISolone 40 MG/ML (Solu-MEDROL) VIAL IV SCH ×2 (17:26→23:21)
--- NOTE | 2022-07-26 17:38 | History & Physical-Hospitalist ---
History of Present Illness HPI/Chief Complaint Mili Alegria is a 76 year old female with PMH HTN, HLD, CAD, COPD, pulmonary HTN, chronic respiratory failure with hypoxia, obesity, who presented with shortness of breath. She was recently admitted with profound hypoxia and found to have severe pulmonary hypertension. She was diuresed and started on phosphodiesterase inhibitors. Her hypoxia improved and she was discharged home with supplemental oxygen. She has been feeling more weak. She denies fevers and chills. She denies chest pain. She denies abdominal pain, nausea, vomiting, and diarrhea. She reports having a good appetite. Source: patient Exam Limitations: no limitations Date Seen 07/26/22 Time Seen by a Provider: 11:30 Attending Physician Benoit Melendez MD PCP Admitting Physician: Meaghan Miller MD Attending Physician: Meaghan Miller MD Referring Physician Date of Admission Jul 26, 2022 at 13:06 Home Medications & Allergies Home Medications Reviewed patient Home Medication Reconciliation performed by pharmacy medication reconciliations bioinformatics research technician and/or nursing. Patients Allergies have been reviewed. Allergies Allergies Coded Allergies No Known Drug Allergies (Qlzxwrcacn03/13/22) Past Pzccycc-Kbjyat-Pwcosf Hx Patient Social History Marrital Status: Employed/Student: retired Tobacco Use?: No Smoking Status: Former Smoker Use of E-Cig and/or Vaping dev: No Substance use?: No Alcohol Use?: Yes Alcohol type: Hard Liquor, Wine Alcohol Frequency: Daily Pt feels they are or have been: No Immunizations Up To Date Tetanus Booster (TDap): Unknown Hepatitis A: No Hepatitis B: No Current Status status: No status: No Advance Directives: No Communicates: Verbally Primary Language: Somali Preferred Spoken Language: Somali Is interpretation needed?: No Implanted or Applied Medical D: None Past Medical History COPD Coronary Artery Disease, High Cholesterol, Hypertension Renal Failure Family Medical History No Pertinent Family Hx Review of Systems Constitutional: weakness EENTM: no symptoms reported Respiratory: short of breath Cardiovascular: no symptoms reported Gastrointestinal: no symptoms reported Physical Exam Physical Exam Vital Signs Vital Signs - First Documented 07/25/22 07/25/22 07/25/22 13:12 15:55 16:16 Temp 36.4 Pulse 84 Resp 16 B/P (MAP) 115/66 Pulse Ox 90 O2 Delivery Nasal Cannula O2 Flow Rate 3.00 FiO2 32 Capillary Refill : Less Than 3 Seconds Height, Weight, BMI Height: '" Weight: lbs. oz. kg; 30.33 BMI Method: General Appearance: No Apparent Distress, Obese HEENT: PERRL/EOMI, Pharynx Normal Neck: Normal Inspection, Supple Respiratory: Lungs Clear, No Respiratory Distress Cardiovascular: No Murmur, Tachycardia Gastrointestinal: Normal Bowel Sounds, Non Tender, Soft Extremity: Normal Inspection, Pedal Edema Neurologic/Psychiatric: Alert, Normal Mood/Affect Skin: Normal Color, Warm/Dry Results Results/Procedures Labs Laboratory Tests 07/25/22 13:20 07/26/22 05:49 Patient resulted labs reviewed. Imaging: Reviewed Imaging Report Assessment/Plan Admission Diagnosis Acute on chronic respiratory failure with hypoxia Admission Status: Inpatient Order (span 2 midnights) Reason for Inpatient Admission: Respiratory failure Assessment and Plan Acute on chronic respiratory failure with hypoxia Pulmonary HTN COPD with acute exacerbation PNA Elevated troponin Supplemental oxygen requirement increased, now on Vapotherm Stop fluids Begin Lasix Add Solumedrol MAT protocol IV antibiotics Cardiology consulted HTN HLD CAD CKD 3a Resume home meds once med rec completed Obesity Clincally significant, no acute management needs DVT prophylaxis: Lovenox Diagnosis/Problems Diagnosis/Problems (1) Acute on chronic respiratory failure with hypoxia Status: Acute (2) Pulmonary hypertension Status: Acute (3) PNA (pneumonia) Status: Acute Qualifiers: Pneumonia type: due to unspecified organism Laterality: bilateral Lung location: lower lobe of lung Qualified Codes: J18.9 - Pneumonia, unspecified organism (4) COPD with acute exacerbation Status: Acute (5) HTN (hypertension) Status: Chronic (6) HLD (hyperlipidemia) Status: Chronic (7) CAD (coronary artery disease) Status: Chronic (8) Obesity Status: Chronic (9) Stage 3a chronic kidney disease Status: Chronic MEAGHAN MILLER MD Jul 26, 2022 17:38
[2022-07-26] MEDS: meTOprolol SUCCINATE 100 MG (TOPROL XL) TAB PO SCH (20:20)
[2022-07-27] VITALS (7 sets, daily range): BP systolic 100–118; BP diastolic 61–74
[2022-07-27] MEDS: RT-ALBUTEROL/IPRATROPIUM 3 ML (DUONEB) VIAL INH SCH ×6 (02:02→21:27)
[2022-07-27 05:46] LABS: POTASSIUM 4.3 MMOL/L (3.6-5.0)
[2022-07-27 05:47] LABS: CALCIUM 9.1 MG/DL (8.5-10.1)
[2022-07-27] MEDS: POTASSIUM CL 10MEQ/50ML IVPB 50 ML IV SCH (05:51)
[2022-07-27] MEDS: KCL 20 MEQ TAB (K-DUR) PO SCH (05:51)
[2022-07-27 05:52] LABS: CREATININE SERUM 1.32 MG/DL (0.60-1.30)
[2022-07-27 05:54] LABS: MAGNESIUM 1.8 MG/DL (1.6-2.4)
[2022-07-27] MEDS: MAGNESIUM 1 GM/100 ML IVPB 100 ML IV SCH (05:59)
[2022-07-27] MEDS: DOXYCYCLINE 100 MG (VIBRAMYCIN) TABLET PO SCH ×2 (06:02→16:57)
[2022-07-27] MEDS: methylPREDNISolone 40 MG/ML (Solu-MEDROL) VIAL IV SCH ×4 (06:03→23:42)
[2022-07-27] MEDS: amLODIPine 10 MG (NORVASC) TAB PO SCH (09:28)
[2022-07-27] MEDS: ASPIRIN 81 MG CHEW (CHILDREN'S ASA) PO SCH (09:28)
[2022-07-27] MEDS: SILDENAFIL 20 MG (REVATIO) TAB PO SCH ×3 (09:28→19:48)
[2022-07-27] MEDS: DOCUSATE SODIUM 100 MG (COLACE) CAP PO SCH ×2 (09:28→19:48)
[2022-07-27] MEDS: SENNOSIDES 8.6 MG (SENOKOT) TAB PO SCH ×2 (09:28→19:48)
[2022-07-27] MEDS ORDERED: FUROSEMIDE 40 MG/4 ML INJ (LASIX) IVP NR (09:30)
[2022-07-27] MEDS: PREGABALIN 25 MG (LYRICA) CAPSULE PO SCH ×2 (09:31→19:48)
--- NOTE | 2022-07-27 14:08 | Progress Note - Cardiology ---
Cardiology SOAP Progress Note Subjective: No cp or palp or syncope Reports improvement of shortness of breath Gen malaise and weakness No n/v/d Objective: I&O/Vital Signs 07/27/22 07/27/22 07/27/22 07/27/22 03:22 07:00 07:40 07:55 Temp 36.4 36.4 Pulse 93 90 90 Resp 18 18 B/P (MAP) 110/68 (82) 111/67 (82) Pulse Ox 100 94 94 O2 Delivery Vapotherm Vapotherm Vapotherm O2 Flow Rate 60.00 20.00 55.00 20.00 20.00 FiO2 55 07/27/22 07/27/22 07/27/22 08:00 11:53 13:00 Temp 37.0 Pulse 98 96 Resp 20 B/P (MAP) 104/64 (77) Pulse Ox 90 92 O2 Delivery Vapotherm Vapotherm O2 Flow Rate 20.00 40.00 20.00 FiO2 55 07/27/22 00:00 Intake Total 1080 ml Balance 1080 ml Constitutional: AAO x 3, well-developed, well-nourished Respiratory: No accessory muscle use, No respiratory distress; chest expansion is symmetric, chest is bilaterally symmetric, rhonchi (scattered), other (diminished lower lobes bilat) Cardiovascular: regular rate-rhythm; No JVD; S1 and S2 Gastrointestional: No tender; soft, round, audible bowel sounds Extremities: other (mild to mod bilat LE swelling) Neurologic/Psychiatric: grossly intact (moves all extremities) Skin: No rash on exposed areas, No ulcerations on exposed areas Results/Procedures: Labs Laboratory Tests 07/27/22 05:04: Sodium Level 141, Potassium Level 4.3, Chloride Level 102, Carbon Dioxide Level 27, Anion Gap 12, Blood Urea Nitrogen 19H, Creatinine 1.32H, Estimat Glomerular Filtration Rate 41, BUN/Creatinine Ratio 14, Glucose Level 155H, Calcium Level 9.1, Magnesium Level 1.8 Microbiology 07/25/22 Blood Culture - Preliminary, Resulted No growth Laboratory Tests 07/26/22 05:49 07/27/22 05:04 A/P: Assessment: Multi-factorial SOB - acute on chronic exacerbation of COPD, pulmonary hypertension, pneumonia Minimal troponin elevation - likely Type 2 OR d/t sepsis, hypoxia and hypotension Severe COPD with acute exacerbation - oxygen dependent at home using 3 L - Currently on Vapo-therm Severe pulmonary hypertension - unknown etiology - No shunt was identified by bubble as well as echocardiogram per Dr. Montesinos - CTA of the chest showed no pulmonary embolism, bronchiectasis was noted - Started on sildenafil during the last hospitalization by Dr Montesinos. Hypotension - likely secondary to sepsis - resolved Sepsis d/t pneumonia - Managed by medical team 2D echo done on June 16, [address] Montesinos showing normal left ventricular size with moderate left ventricular hypertrophy, systolic function is preserved ejection fraction 60 to 65%, grade 2 diastolic dysfunction, enlarged right atrium and dilated right heart chambers. Severe pulmonary hypertension with PA pressure 75 to 80 mmHg. Questionable history of coronary artery disease, patient reporting that 2 years ago she had a stress test then a cardiac catheterization did not require any stenting or intervention. Reported h/o HTN Chronic renal insufficiency, continue to monitor renal function. Plan: Complex management due multiple comorbidities Continue current medication regimen Monitor lab closely Reduce diuretics if renal function continues to deteriorate Clinical Quality Measures Type of Care: Type of Care: Pallative Care MARGARITO MCFADDEN MD FACP FAC CCDS Jul 27, 2022 14:08
[2022-07-27] MEDS: cefTRIAXone 1 GM PRE-MIX 50 ML IV SCH (16:56)
[2022-07-27] MEDS: ENOXAPARIN 40 MG/0.4 ML (LOVENOX) SYR SC SCH (16:58)
--- NOTE | 2022-07-27 17:21 | Progress Note - Hospitalist ---
Subjective HPI/CC On Admission Date Seen by Provider: Jul 27, 2022 Time Seen by Provider: 11:45 Mili Alegria is a 76 year old female with PMH HTN, HLD, CAD, COPD, pulmonary HTN, chronic respiratory failure with hypoxia, obesity, who presented with shortness of breath. She was recently admitted with profound hypoxia and found to have severe pulmonary hypertension. She was diuresed and started on phosphodiesterase inhibitors. Her hypoxia improved and she was discharged home with supplemental oxygen. She has been feeling more weak. She denies fevers and chills. She denies chest pain. She denies abdominal pain, nausea, vomiting, and diarrhea. She reports having a good appetite. Subjective/Events-last exam She is feeling about the same. She is not short of breath. She is still feeling weak. Focused Exam Lactate Level 07/25/22 13:20: Lactic Acid Level 1.92 Objective Exam Vital Signs Vital Signs Date Time Temp Pulse Resp B/P (MAP) Pulse Ox O2 Delivery O2 Flow Rate FiO2 07/27/22 16:00 36.8 98 21 100/61 (74) 92 Vapotherm 40.00 07/27/22 14:00 40 Capillary Refill : Less Than 3 Seconds General Appearance: No Apparent Distress, Chronically ill, Obese Respiratory: Lungs Clear, No Respiratory Distress Cardiovascular: Regular Rate, Rhythm, No Murmur Gastrointestinal: Normal Bowel Sounds, Soft Extremity: Normal Inspection, Pedal Edema Neurologic/Psychiatric: Alert, Normal Mood/Affect Skin: Normal Color, Warm/Dry Results/Procedures Lab Laboratory Tests 07/27/22 05:04 Patient resulted labs reviewed. Imaging: Reviewed Imaging Report Assessment/Plan Assessment and Plan Assess & Plan/Chief Complaint Acute on chronic respiratory failure with hypoxia Pulmonary HTN COPD with acute exacerbation PNA Elevated troponin Continue Vapotherm, now on 20 L 40%, wean as able Continue Lasix, decrease dose Continue Solumedrol MAT protocol IV antibiotics Cardiology following HTN HLD CAD CKD 3b Continue home meds Obesity Clincally significant, no acute management needs DVT prophylaxis: Lovenox Diagnosis/Problems Diagnosis/Problems (1) Acute on chronic respiratory failure with hypoxia Status: Acute (2) Pulmonary hypertension Status: Acute (3) PNA (pneumonia) Status: Acute Qualifiers: Pneumonia type: due to unspecified organism Laterality: bilateral Lung location: lower lobe of lung Qualified Codes: J18.9 - Pneumonia, unspecified organism (4) COPD with acute exacerbation Status: Acute (5) HTN (hypertension) Status: Chronic (6) HLD (hyperlipidemia) Status: Chronic (7) CAD (coronary artery disease) Status: Chronic (8) Obesity Status: Chronic (9) Stage 3b chronic kidney disease Status: Chronic DEBRA MILLER MD Jul 27, 2022 17:21
[2022-07-27] MEDS: meTOprolol SUCCINATE 100 MG (TOPROL XL) TAB PO SCH (19:48)
[2022-07-28] MEDS: RT-ALBUTEROL/IPRATROPIUM 3 ML (DUONEB) VIAL INH SCH (01:53)
[2022-07-28 02:59] VITALS: BP 114/74
[2022-07-28] MEDS ORDERED: RT-ALBUTEROL/IPRATROPIUM 3 ML (DUONEB) VIAL INH PRN (03:15)
[2022-07-28 03:41] VITALS: BP 113/73
[2022-07-28] MEDS: methylPREDNISolone 40 MG/ML (Solu-MEDROL) VIAL IV SCH (05:23)
[2022-07-28] MEDS: DOXYCYCLINE 100 MG (VIBRAMYCIN) TABLET PO SCH (05:23)
[2022-07-28 06:47] LABS: CALCIUM 8.9 MG/DL (8.5-10.1); CREATININE SERUM 1.09 MG/DL (0.60-1.30); MAGNESIUM 1.8 MG/DL (1.6-2.4)
[2022-07-28] MEDS: POTASSIUM CL 10MEQ/50ML IVPB 50 ML IV SCH (06:50)
[2022-07-28] MEDS: MAGNESIUM 1 GM/100 ML IVPB 100 ML IV SCH (06:50)
[2022-07-28] MEDS: KCL 20 MEQ TAB (K-DUR) PO SCH (06:50)
[2022-07-28 07:31] VITALS: BP 132/84
[2022-07-28] MEDS ORDERED: predniSONE 20 MG TAB PO NR (08:00)
[2022-07-28] MEDS: ASPIRIN 81 MG CHEW (CHILDREN'S ASA) PO SCH (08:09)
[2022-07-28] MEDS: amLODIPine 10 MG (NORVASC) TAB PO SCH (08:09)
[2022-07-28] MEDS: SILDENAFIL 20 MG (REVATIO) TAB PO SCH ×2 (08:09→13:02)
[2022-07-28] MEDS: DOCUSATE SODIUM 100 MG (COLACE) CAP PO SCH (08:10)
[2022-07-28] MEDS: SENNOSIDES 8.6 MG (SENOKOT) TAB PO SCH (08:10)
[2022-07-28] MEDS: PREGABALIN 25 MG (LYRICA) CAPSULE PO SCH (08:22)
[2022-07-28] MEDS ORDERED: FUROSEMIDE 20 MG (LASIX) TAB PO SCH (09:00)
--- NOTE | 2022-07-28 11:47 | Physical Therapy Evaluation ---
PT Evaluation-General Medical Diagnosis Admission Date Jul 26, 2022 at 13:06 Medical Diagnosis: SOB/ Low O2 Levls Onset Date: Jul 25, 2022 Therapy Diagnosis Therapy Diagnosis: Generalized Weakness Precautions Precautions/Isolations: Fall Prevention, Standard Precautions Weight Bear Status Right Lower Extremity: Right Full Weight Bearing Left Lower Extremity: Left Full Weight Bearing Referral Physician: Daniel Reason for Referral: Evaluation/Treatment Medical History Pertinent Medical History: CAD, COPD, HTN, Renal Insufficiency Additional Medical History Pertinent Medical History: CAD, COPD, HTN, Renal Insufficiency Additional Medical History COPD Coronary Artery Disease, High Cholesterol, Hypertension Renal Failure Reviewed History: Yes Social History Home: Single Level Current Living Status: Spouse Entry Into Home: Stairs With Railing PT Steps Into Home: 2 Prior Prior Level of Function SCALE: Activities may be completed with or without assistive devices. 6-Pxvjjvpnlr-eepadev completes the activity by him/herself with no assistance from a helper. 5-Set-up or Clean-up Assistance-helper sets up or cleans up; patient completes activity. [place] assists only prior to or following the activity. 4-Supervision or Touching Assistance-helper provides verbal cues and/or touching/steadying and/or contact guard assistance as patient completes activity. Assistance may be provided throughout the activity or intermittently. 3-Partial/Moderate Assistance-helper does LESS THAN HALF the effort. [place] lifts, holds or supports trunk or limbs, but provides less than half the effort. 2-Substantial/Maximal Assistance-helper does MORE THAN HALF the effort. [place] lifts or holds trunk or limbs and provides more than half the effort. 5-Psorzidve-nztvth does ALL the effort. Patient does none of the effort to complete the activity. Or, the assistance of 2 or more helpers is required for the patient to complete the activity. If activity was not attempted, code reason: 7-Patient Refused. 9-Not Applicable-not attempted and the patient did not perform the activity before the current illness, exacerbation or injury. 10-Not Attempted due to Environmental Limitations-(lack of equipment, weather restraints, etc.). 88-Not Attempted due to Medical Conditions or Safety Concerns. Bed Mobility: 6 Transfers (B,C,W/C): 6 Gait: 6 Stairs: 6 Indoor Mobility (Ambulation): Independent Stairs: Independent Prior Devices Use: Walker PT Evaluation-Current Subjective Patient in recliner pre-tx, reports no pain, agrees to PT. Pt/Family Goals Return home to independence. Objective Patient Orientation: Person, Place, Situation Attachments: IV ROM/Strength ROM Lower Extremities BLE grossly WFL Strength Lower Extremities BLE grossly 3+/5 Neuromuscular (Tone, Coordination, Reflexes) Coordination intact Sensory Vision: Functional Hearing: Functional Sensation Right Lower Extremit: Intact Sensation Left Lower Extremity: Intact Transfers Sit to Stand (QC): 4 Chair/Ugv-ng-Bdmsh Xfer(QC): 4 SBA Gait Does the Patient Walk?: Yes Mode of Locomotion: Walk Anticipated Mode of Locomotion: Walk Walk 10 feet (QC): 4 Walk 50 ft with 2 Turns(QC): 4 Distance: 100' Gait Assistive Device: FWW Comments/Gait Description SBA, Patient walks with good gait speed, foot clearance, and step length. Balance Sitting Static: Normal Sitting Dynamic: Normal Standing Static: Normal Standing Dynamic: Normal Treatment Ambulation, LE Strengthening Assessment/Needs Patient has diminished strength BLE, walks steady with a walker but felt a little tired today and did not want to overdue it. Patient in recliner post-tx with nurse call, phone, tray, all needs met. Rehab Potential: Fair PT [facility] Goals Closing Specialist Goals PT Closing Specialist Goals Time Frame: Aug 02, 2022 Roll Left & Right (QC): 6 Sit to Lying (QC): 6 Lying-Sitting on Side/Bed(QC): 6 Sit to Stand (QC): 6 Chair/Vqo-ln-Ifzce Xfer(QC): 6 Walk 10 feet (QC): 6 Walk 50ft with 2 Turns (QC): 6 Walk 150 ft (QC): 6 PT Plan Problem List Problem List: Activity Tolerance, Functional Strength, Safety, Balance, Gait, Transfer, Bed Mobility, ROM Treatment/Plan Treatment Plan: Continue Plan of Care Treatment Plan: Bed Mobility, Education, Functional Activity Susan, Functional Strength, Gait, Safety, Therapeutic Exercise, Transfers Treatment Duration: Aug 02, 2022 Frequency: 6 times per week Estimated Hrs Per Day: .25 hour per day Patient and/or Family Agrees t: Yes Safety Risks/Education Patient Education: Gait Training, Transfer Techniques, Correct Positioning, Safety Issues Teaching Recipient: Patient Teaching Methods: Demonstration, Discussion Response to Teaching: Reinforcement Needed Discharge Recommendations Plan Patient will perform bed mobility and transfer training, endurance and balance training, gait training, and functional strengthening in order to be independent at home. Time Time In: 1107 Time Out: 1119 DATE: Jul 28, 2022 Total Billed Treatment Time: 12 Total Billed Treatment 1 visit EVBABAK CAVAZOS PT Jul 28, 2022 11:47
[2022-07-28] MEDS ORDERED: DOXY100T2 PO (12:12)
[2022-07-28] MEDS ORDERED: SILD20TA14 PO (12:12)
[2022-07-28] MEDS ORDERED: PRED10TA22 PO (12:12)
[2022-07-28] MEDS ORDERED: CEFD300C3 PO (12:12)
[2022-07-28 12:24] VITALS: BP 126/63
--- NOTE | 2022-07-28 13:11 | Progress Note - Cardiology ---
Cardiology SOAP Progress Note Subjective: Reports moderate improvement of shortness of breath No cp or palp or syncope Notes malaise and weakness No n/v/d No swelling Objective: I&O/Vital Signs 07/28/22 07/28/22 07/28/22 07/28/22 01:53 02:59 03:41 07:00 Temp 36.2 Pulse 99 98 94 Resp 18 B/P (MAP) 113/73 (86) Pulse Ox 100 100 97 O2 Delivery High Flow N/C High Flow N/C O2 Flow Rate 6.00 5.00 07/28/22 07/28/22 07/28/22 07/28/22 07:31 08:00 12:24 12:48 Temp 36.0 36.5 Pulse 98 92 86 Resp 18 18 B/P (MAP) 132/84 (100) 126/63 (84) Pulse Ox 93 93 92 O2 Delivery High Flow N/C High Flow N/C High Flow N/C O2 Flow Rate 5.00 5.00 5.00 5.00 5.00 07/28/22 00:00 Intake Total 1380 ml Balance 1380 ml Constitutional: AAO x 3, well-developed, well-nourished Respiratory: No accessory muscle use, No respiratory distress; chest expansion is symmetric, chest is bilaterally symmetric, rhonchi (scattered), other (dimi nished lower lobes bilat) Cardiovascular: regular rate-rhythm; No JVD; S1 and S2 Gastrointestional: No tender; soft, round, audible bowel sounds Extremities: other (mild to mod bilat LE swelling) Neurologic/Psychiatric: grossly intact (moves all extremities) Skin: No rash on exposed areas, No ulcerations on exposed areas Results/Procedures: Labs Laboratory Tests 07/28/22 06:04: Sodium Level 141, Potassium Level 4.0, Chloride Level 102, Carbon Dioxide Level 26, Anion Gap 13, Blood Urea Nitrogen 22H, Creatinine 1.09, Estimat Glomerular Filtration Rate 52, BUN/Creatinine Ratio 20, Glucose Level 151H, Calcium Level 8.9, Magnesium Level 1.8 Microbiology 07/25/22 Blood Culture - Preliminary, Resulted No growth Laboratory Tests 07/27/22 05:04 07/28/22 06:04 A/P: Assessment: Multi-factorial SOB - acute on chronic exacerbation of COPD, pulmonary hypertension, pneumonia Minimal troponin elevation - likely Type 2 PA d/t sepsis, hypoxia and hypotension Severe COPD with acute exacerbation - oxygen dependent at home using 3 L - Currently on Vapo-therm Severe pulmonary hypertension - unknown etiology - No shunt was identified by bubble as well as echocardiogram per Dr. Montesinos - CTA of the chest showed no pulmonary embolism, bronchiectasis was noted - Started on sildenafil during the last hospitalization by Dr Montesinos. Hypotension - likely secondary to sepsis - resolved Sepsis d/t pneumonia - Managed by medical team 2D echo done on June 16, [address] Montesinos showing normal left ventricular size with moderate left ventricular hypertrophy, systolic function is preserved ejection fraction 60 to 65%, grade 2 diastolic dysfunction, enlarged right atrium and dilated right heart chambers. Severe pulmonary hypertension with PA pressure 75 to 80 mmHg. Questionable history of coronary artery disease, patient reporting that 2 years ago she had a stress test then a cardiac catheterization did not require any stenting or intervention. Reported h/o HTN Chronic renal insufficiency Plan: Complex management due multiple comorbidities Continue current medication regimen Monitor lab closely Clinical Quality Measures Type of Care: Type of Care: Pallative Care MARGARITO MCFADDEN MD FACP FAC CCDS Jul 28, 2022 13:11
[2022-07-28 14:42] VITALS: BP 126/63
--- NOTE | 2022-07-28 14:43 | Discharge Summary ---
Discharge Summary Reconcile Patient Problems Problems Reviewed?: Yes Instructions for Patient Via [facility], Assessment/Instructions See instructions Physician to follow Patient: Starrpaulina Discharge Diet for Home: Low Sodium Diet Hospital Course Date of Admission: Jul 26, 2022 at 13:06 Admission Diagnosis : Acute on chronic respiratory failure with hypoxia Family Physician/Provider: Benoit Melendez MD Date of Discharge: 07/28/22 Discharge Diagnosis: Acute on chronic respiratory failure with hypoxia Hospital Course: Mili Alegria is a 76 year old female with PMH pulmonary HTN, chronic respiratory failure with hypoxia, COPD, obesity, who presented with acute on chronic respiratory failure with hypoxia. She was treated for a pneumonia with antibiotics. She was initially given IV fluids for dehydration. Her kidney function improved but her oxygen requirement increased. She was diuresed and improved. She was on Vapotherm but then returned to nasal cannula. She was given steroids and breathing treatments for COPD. She was requiring 5 L continuously and 10 L with activity at the time of discharge. We did discuss her poor prognosis. She has a follow up with a poultry tender to discuss treatment options. She should also follow up with her PCP. She was discharged home in improved, fair condition. Labs and Pending Lab Test: Laboratory Tests 07/28/22 06:04: Sodium Level 141, Potassium Level 4.0, Chloride Level 102, Carbon Dioxide Level 26, Anion Gap 13, Blood Urea Nitrogen 22H, Creatinine 1.09, Estimat Glomerular Filtration Rate 52, BUN/Creatinine Ratio 20, Glucose Level 151H, Calcium Level 8.9, Magnesium Level 1.8 Microbiology 07/25/22 Blood Culture - Preliminary, Resulted No growth Home Meds Active Prednisone 10 Mg Tab.ds.pk 10 Mg PO DAILY Take 6 tabs(60mg)daily,decrease by 1 tab(10mg)every other day. Cefdinir 300 Mg Capsule 300 Mg PO BID 5 Days Sildenafil (Sildenafil Citrate) 20 Mg Tablet 20 Mg PO TID 30 Days Doxycycline Hyclate 100 Mg Tablet 100 Mg PO BID@07,17 5 Days Reported Furosemide 20 Mg Tablet 20 Mg PO DAILY Magnesium Oxide 400 Mg Tablet 400 Mg PO HS Myrbetriq (Mirabegron) 25 Mg Tab.er.24h 25 Mg PO DAILY Atorvastatin Calcium 40 Mg Tablet 40 Mg PO HS Amlodipine Besylate 10 Mg Tablet 10 Mg PO DAILY Metoprolol Succinate 100 Mg Tab.er.24h 100 Mg PO HS Lyrica (Pregabalin) 25 Mg Capsule 50 Mg PO DAILY TAKES 2 (25MG) CAPS Consulations Cardiology Patient Allergies: Coded Allergies: No Known Drug Allergies (Unverified , 06/15/22) Home Health Need/Face to Face Date of Face to Face: Jul 28, 2022 Clinical Findings: Generalized weakness and fatigue, Muscle weakness, Shortness of breath I have seen Pt [id number]: Yes Discharged To: Home Diagnosis/Conditions: Respiratory failure Pulmonary HTN HFpEF COPD Obesity Problems/Diagnosis/Condition: (1) Acute on chronic respiratory failure with hypoxia (2) Pulmonary hypertension (3) COPD with acute exacerbation (4) PNA (pneumonia) (5) Stage 3b chronic kidney disease Patient is Homebound due to: Sergio fall risk due to instabilty, Muscle weakness, Shortness of breath/distress Homebound Status Due to the above stated illness, injury or surgical procedure (medical condition or diagnosis) and associated clinical findings, the patient is homebound because of his/her inability to leave home except with aid of a supportive device and/or person AND leaving the home requires a considerable and taxing effort or is medically contraindicated. Pt req the following assistanc: Aid of another person Home Health Nursing Orders Home Health Services Order: Nursing Services, International Logistics Coordinator-Evaluate & Treat, Physical Therapy-Evaluate & Treat Therapy Orders Therapy Orders: OT (must have SN or PT order), Physical Therapy Therapy Specific Orders: Eval assistive deivces, Teach enviro modifications/safety, Gait training, Increase strength/endurance Certify Stmt I certify that this patient is under my care and that I, a nurse practitioner or a physician; a hardware sales assistant working with me, had a face to face encounter that - meets the physician face to face encounter requirements with this patient as dated. Discharge Physical Exam General: Alert, No Acute Distress HEENT: Atraumatic, Mucous Memb Moist/[place] Lungs: Clear to Auscultation, Normal Air Movement Heart: Regular Rate, No Murmurs Abdomen: Soft, No Tenderness Extremities: Other (pedal edema) Neuro: Normal Speech, Normal Tone Psych/Mental Status: Mental Status NL, Mood NL DEBRA MILLER MD Jul 28, 2022 14:43
[2022-07-29] MEDS ORDERED: predniSONE 20 MG TAB PO SCH (07:00)
== END 2022-07-28 14:42 | disposition home health service (06) | DRG 871 ==
LOC: EDUNIT# 13:07 → ER 13:10 → 4TH 14:29 → OBSVTOIN 07-26 13:06
PROVIDERS: ADMIT Internal Medicine; ATTEND Internal Medicine
PROC: 5A0935A Assistance with Respiratory Ventilation, Less than 24 Consecutive Hours, High Flow/Velocity Cannula (ICD-10-PCS; principal; 2022-07-27)
DX: A41.9 Sepsis, unspecified organism (principal); I21.A1 Myocardial infarction type 2; J96.21 Acute and chronic respiratory failure with hypoxia; J18.9 Pneumonia, unspecified organism; J44.0 Chronic obstructive pulmonary disease with (acute) lower respiratory infection; J44.1 Chronic obstructive pulmonary disease with (acute) exacerbation; I50.30 Unspecified diastolic (congestive) heart failure; I13.0 Hypertensive heart and chronic kidney disease with heart failure and stage 1 through stage 4 chronic kidney disease, or unspecified chronic kidney disease; E86.0 Dehydration; E66.9 Obesity, unspecified; I95.9 Hypotension, unspecified; I27.20 Pulmonary hypertension, unspecified; N18.32 Chronic kidney disease, stage 3b; Z87.891 Personal history of nicotine dependence; E78.00 Pure hypercholesterolemia, unspecified; I25.10 Atherosclerotic heart disease of native coronary artery without angina pectoris; R77.8 Other specified abnormalities of plasma proteins; Z79.82 Long term (current) use of aspirin; Z79.899 Other long term (current) drug therapy; Z99.81 Dependence on supplemental oxygen; Z86.16 Personal history of COVID-19; Z68.30 Body mass index [BMI] 30.0-30.9, adult
CPT/HCPCS: 36415; 36600; 71045; 80048; 80053; 82805; 83605; 83735; 83880; 84484; 85025; 85610; 85730; 87040; 93005; 93041; 94640; 94760; 94761; G0378

== ENCOUNTER → 2022-08-14 | Outpatient (CLI) | payer MEDICARE ==
[~2022-08-14] MED LIST changes: +CATHETER FLUSH 10 ML SYR IVP PRN; +CEFD300C3 PO; +DOXY100T2 PO; +FURO20TA4 PO; +REGADENOSON 0.4 MG/5 ML SYR (LEXISCAN) IV ONE
[2022-08-14 09:18] VITALS: BP 120/66
--- NOTE | 2022-08-14 11:10 | Cardiology Stress Test Report ---
Stress Test Report Date of Procedure/Referring: Date of Procedure: Aug 14, 2022 PCP Benoit Melendez MD Admitting Physician Admitting Physician: Attending Physician: Leilani Tolentino Baseline Heart Rate: 91 Baseline Blood Pressure: Blood Pressure Systolic: 120 Blood Pressure Diastolic: 66 Baseline Vitals Vital Signs Date Time Temp Pulse Resp B/P (MAP) Pulse Ox O2 Delivery O2 Flow Rate FiO2 08/14/22 09:18 91 120/66 (84) 96 Nasal Cannula 3.00 Baseline EKG: Baseline EKG: RBBB Summary After explaining the procedure to the patient, she signed a consent and then brought to the stress nuclear laboratory. Patient received 0.4 mg Lexiscan for stress test, ECG, heart rate and blood pressure were monitored continuously. Resting and stress dose of radio tracer were injected, imaging was acquired and reviewed in short axis, horizontal long axis and vertical long axis views. TID: 1.08 SSS: 6 SDS: 5 EF: 83 1. Patient tolerated Lexiscan well 2. Baseline right bundle branch block persisted during test 3. Extracardiac attenuation with reversible ischemia involving the the inferoseptum and the base of the inferior wall 4. Normal left ventricular size, ejection fraction 83% CC NEHEMIAS Strong MD Aug 14, 2022 11:10
== END ==
LOC: CARD 07:45
PROVIDERS: ATTEND Physician Assistant
DX: I10 Essential (primary) hypertension (principal)
CPT/HCPCS: 78452; 93017; A9502

== ENCOUNTER 2022-08-30 06:47 | Day surgery (SDC) | payer MEDICARE ==
[~2022-08-30] VITALS: Ht 162.5 cm; Wt 78.5 kg
[2022-08-30] VITALS (7 sets, daily range): BP systolic 93–119; BP diastolic 48–83
[~2022-08-30 06:47] MED LIST changes: -CATHETER FLUSH 10 ML SYR IVP PRN; -REGADENOSON 0.4 MG/5 ML SYR (LEXISCAN) IV ONE
[2022-08-30] MEDS ORDERED: NS IV 1000 ML 1,000 ML ONE (06:52)
[2022-08-30] MEDS ORDERED: HEParin (CATH LAB) 2,000 ML IV ONE (06:52)
[2022-08-30] MEDS ORDERED: LIDOCAINE 1% INJ 30 ML (XYLOCAINE) VIAL ONE (06:52)
[2022-08-30] MEDS ORDERED: NS IV 1000 ML 1,000 ML IV SCH ×2 (07:00→10:30)
[2022-08-30 07:13] LABS: HEMATOCRIT 37 % (35-52); HEMOGLOBIN 11.1 g/dL (11.5-16.0); MEAN CORPUSCULAR HEMOGLOBIN 29 pg (25-34); MEAN CORPUSCULAR HGB CONC 30 g/dL (32-36); MEAN CORPUSCULAR VOLUME 96 fL (80-99); MEAN PLATELET VOLUME 9.1 fL (9.0-12.2); PLATELET COUNT 365 10^3/uL (130-400); WHITE BLOOD COUNT 10.2 10^3/uL (4.3-11.0)
[2022-08-30 07:24] LABS: INR 0.9 (0.8-1.4); PROTHROMBIN TIME PATIENT 12.4 SEC (12.2-14.7)
[2022-08-30] MEDS ORDERED: METO50TA7 PO (07:29)
[2022-08-30] MEDS ORDERED: SILD20TA14 PO (07:29)
[2022-08-30] MEDS ORDERED: PREG50CA2 PO (07:29)
[2022-08-30 07:33] LABS: ALBUMIN 3.3 GM/DL (3.2-4.5); BILIRUBIN,TOTAL 0.5 MG/DL (0.1-1.0); CALCIUM 9.4 MG/DL (8.5-10.1); CREATININE SERUM 1.28 MG/DL (0.60-1.30); TOTAL PROTEIN 6.8 GM/DL (6.4-8.2)
--- NOTE | 2022-08-30 07:52 | Diagnostic Imaging Report ---
EXAMINATION: Chest 1 view HISTORY: Abnormal stress test. Precatheterization. COMPARISON: 07/25/2022. FINDINGS: The lung volumes are normal. No focal consolidation is seen. Scattered interstitial markings are seen throughout the lungs. No large pleural effusion or pneumothorax is seen. The cardiomediastinal silhouette is normal in size and contour. No acute osseous abnormality is seen. IMPRESSION: 1. Scattered interstitial markings throughout the lungs, which may represent edema. No focal consolidation or pleural effusion. Dictated by: Dictated on workstation # [id number]
[2022-08-30] MEDS ORDERED: fentaNYL INJ 100 MCG/2 ML AMP ONE (09:23)
[2022-08-30] MEDS ORDERED: MIDAZOLAM 5 MG/5 ML (VERSED) VIAL ONE (09:23)
[2022-08-30] MEDS ORDERED: NITRO DRIP 25000 MCG/D5W 250 ML IV ONE (09:23)
[2022-08-30] MEDS ORDERED: HEParin 1000 UNIT/ML (10ML VIAL) FOR BOLUS ONE (09:23)
[2022-08-30] MEDS ORDERED: VERAPAMIL 5 MG/2 ML (CALAN) VIAL IV ONE (09:23)
--- NOTE | 2022-08-30 09:29 | Cardiac Procedure Note-CS/ASA ---
Pre-Procedure Note Pre-Op Procedure Note Date of Available H&P: Aug 15, 2022 Date H&P Reviewed: Aug 30, 2022 Time H&P Reviewed: 08:30 History & Physical: H&P Reviewed, Patient Examed, No changes noted Pre-Operative Diagnosis: Coronary artery disease, pulmonary hypertension Conscious Sedation Pre-Proced Time 08:30 ASA Score 3 For ASA 3 and 4: Consider anesthesia and medical clearance. Also, for patients with a history of failed moderate sedation consider anesthesia. Airway Lungs Heart ASA score ASA 1: a normal healthy patient ASA 2: a patient with a mild systemic disease (mid diabetes, controlled hypertension, obesity ASA 3: a patient with a severe systemic disease that limits activity (angina, COPD, prior Myocardial infarction) ASA 4: a patient with an incapacitating disease that is a constant threat to life (CHF, renal failure) ASA 5: a moribund patient not expected to survive 24 hrs. (ruptured aneurysm) ASA 6: a declared brain- patient whose organs are being harvested. For emergent operations, add the letter E after the classification Mallampati Classification Grade 3 Sedation Plan Analgesia, Amnesia, Plan communicated to team members, Discussed options with patient/fam, Discussed risks with patient/fam The patient is an appropriate candidate to undergo the planned procedure, sedation, and anesthesia. The patient immediately re-assessed prior to indication. NEHEMIAS CHÁVEZ MD Aug 30, 2022 09:29
--- NOTE | 2022-08-30 10:23 | Discharge Inst-Post CATH ---
Discharge Inst-CATH/EP Problems Reviewed?: Yes Post Cardiac Cath/EP D/C Inst Follow Up/Plan Appointment with Dr. Montesinos's office in 2 to 4 weeks <b>CARDIAC CATH/EP PROCEDURE DISCHARGE INSTRUCTIONS</b> ACTIVITY * Go Home directly and rest. * Limit activity of the leg (or wrist if it was used) for 7 days including aer obics, swimming, jogging, bicycling, etc. * Restrict stair-climbing for 7 days if possible, if not, climb up with your non-cath leg, then bring together on the same step. * Avoid lifting, pushing, pulling or excessive movement of the affected extremi ty for 7 days. * Customary sexual activity may be resumed after 2 days-use caution not to use a position that strains or causes pain to the affected extremity. * No driving for 24 hours. * NO SMOKING. * Avoid straining for bowel movements for 7 days. * Gentle walking on level ground is allowed. * Returning to work will depend on the type of procedure and the results. Your doctor will discuss this with you. CALL YOUR DOCTOR FOR ANY OF THE FOLLOWING: *If bleeding from the puncture site occurs- Apply gentle pressure to site with clean cloth and call your doctor or EMS. * If a knot or lump forms under the skin, increases in size, or causes pain. * If bruising appears to be worsening or moving further down your leg instead of disappearing. * Temperature above 101 F. CARE OF YOUR GROIN INCISION; * Bruising or purple discoloration of the skin near the puncture site is common. * You may shower only, no bathtub bathing for 5 days. Be careful to avoid slipping as your leg may feel stiff. * If a closure device was used on your femoral artery, please see the attached guide regarding care of the device and your leg. * Leave dressing on FOR 24 hours. CARE OF YOUR WRIST INCISION; * Bruising or purple discoloration of the skin near the puncture site is common. * You may shower. * DO NOT submerge wrist. * Leave dressing on FOR 24 hours. NEHEMIAS MONTESINOS MD Aug 30, 2022 10:23
--- NOTE | 2022-08-30 10:29 | Cardiac Cath Report ---
Cardiac Cath Report Physician (s)/Fluorescent Solution Mixer (s) Physician NEHEMIAS CHÁVEZ MD Pre-Procedure Diagnosis Pre-Procedure Diagnosis: Coronary artery disease, pulmonary hypertension Post-Procedure Note Procedure Start Date: Aug 30, 2022 Name of Procedure: Right and left heart catheterization Findings/Procedure Note PROCEDURE NOTE: 77-year-old lady with history of hypertension, pulmonary hypertension, coronary artery disease, had an abnormal stress test, scheduled for right and left heart catheterization possible PTCA. After explaining the procedure to the patient, all pros and cons were explained, all questions were answered. The patient signed the consent and then she was placed in the cardiac catheterization laboratory. Groin was prepped in SL fashion local anesthesia was used. 6 Mongolian sheath was placed in the right radial artery 7 Mongolian sheath was placed in the right femoral vein. Entiat-Felisha catheter was advanced through the sheath up to the right atrium, right ventricle, pulmonary artery and wedge position, cardiac output, thermodilution and Debra was done, oxygen saturation was measured and pressure was measured then the catheter was removed Voorhees catheter was advanced with baby J-wire due to difficulty in the brachial artery. Advanced to the left ventricular cavity, pressure was measured, pullback LV to aorta was done, engage the right and left coronary system and angiogram was done. At the end of the procedure the sheath was removed. Vascular band was applied to the wrist and manual pressure to the groin FINDINGS: Hemodynamics LV 86/15, end-diastolic pressure of 15 Aorta 102/49 mean of 70 PA 45/16 mean of 27 RV 50/12, end-diastolic pressure of 12 RA 12 Oxygen saturation PA 45.8%, FA 72%, RV 45.2%, HRA 40.1%, LRA 36.6%. There was a step up from the right atrium to the right ventricle suggestive of left to right shunt Cardiac output by thermodilution 4.0, by Debra equation 4.3 Cardiac index by thermodilution 2.19, by Debra equation 2.35. ANATOMY: Left Main is free of obstructive disease Left Anterior Descending has 40 to 50% proximal LAD stenosis nonobstructive disease Left Circumflex is large dominant artery with no obstructive disease Right Coronary Artery is nondominant artery with 30% stenosis at the mid right coronary artery nonobstructive disease LV Gram was not done, pressure was measured CONCLUSION: 1. Mild to moderate coronary artery disease nonobstructive disease 2. Pulmonary hypertension with preserved cardiac output 3. Step up was noted with oxygen saturation suggestive of left to right shunt DISCUSSION AND RECOMMENDATION: Continue with current treatment, no changes are recommended, will consider ALIA Anesthesia Type: Conscious Sedation Estimated blood loss (mL): 20 ml Contrast Amount: 35 ml Total Radiation Dose: 359 mGy Post-Procedure Diagnosis Post-operative diagnosis: Coronary artery disease Pulmonary hypertension Hypertension Hyperlipidemia NEHEMIAS CHÁVEZ MD Aug 30, 2022 10:29
[2022-08-30] MEDS ORDERED: PATIENT MAY USE OWN MEDS, ALL PO SCH (10:30)
== END 2022-08-30 13:26 | disposition home or self-care (01) ==
LOC: CATH 06:47 → SDC 10:37 → CATH 13:26
PROVIDERS: ATTEND Internal Medicine Cardiovascular Disease
DX: I25.10 Atherosclerotic heart disease of native coronary artery without angina pectoris (principal); I27.20 Pulmonary hypertension, unspecified; I10 Essential (primary) hypertension; E78.5 Hyperlipidemia, unspecified; J44.9 Chronic obstructive pulmonary disease, unspecified; Z79.82 Long term (current) use of aspirin; Z87.891 Personal history of nicotine dependence
CPT/HCPCS: 71045; 80053; 80061; 85027; 85610; 85730; 87081; 93005; 93460; C1769 ×2; C1894 ×2; 36415

== ENCOUNTER 2023-02-19 09:39 | Emergency (ER) | payer MEDICARE ==
[~2023-02-19] VITALS: Ht 162.5 cm; Wt 81.6 kg
[~2023-02-19 09:39] MED LIST changes: -LOSA100T57 PO; +LOSA100T58 PO; +METO50TA7 PO; +PREG50CA2 PO
[2023-02-19] MEDS ORDERED: NS (IVPB) 250 ML IV ONE (10:15)
[2023-02-19 10:23] LABS: BASOPHILS # (AUTO) 0.1 10^3/uL (0.0-0.1); BASOPHILS % (AUTO) 1 % (0-10); EOSINOPHILS # (AUTO) 0.3 10^3/uL (0.0-0.3); EOSINOPHILS % (AUTO) 3 % (0-10); HEMATOCRIT 37 % (35-52); HEMOGLOBIN 11.1 g/dL (11.5-16.0); LYMPHOCYTES # (AUTO) 1.4 10^3/uL (1.0-4.0); LYMPHOCYTES % (AUTO) 19 % (12-44); MEAN CORPUSCULAR HEMOGLOBIN 28 pg (25-34); MEAN CORPUSCULAR HGB CONC 30 g/dL (32-36); MEAN CORPUSCULAR VOLUME 92 fL (80-99); MEAN PLATELET VOLUME 9.2 fL (9.0-12.2); MONOCYTES # (AUTO) 0.5 10^3/uL (0.0-1.0); MONOCYTES % (AUTO) 6 % (0-12); NEUTROPHILS # (AUTO) 5.4 10^3/uL (1.8-7.8); NEUTROPHILS % (AUTO) 70 % (42-75); PLATELET COUNT 223 10^3/uL (130-400); WHITE BLOOD COUNT 7.7 10^3/uL (4.3-11.0)
--- NOTE | 2023-02-19 10:28 | ED General ---
General Chief Complaint: General Problems/Pain Stated Complaint: FATIGUE | NOT EATING | Nursing Triage Note: PT ARRIVED POV ASSISTED BY WC WITH CC OF WEAKNESS X1 WK AND NO APPETITE X3 DAYS. Source of Information: Patient, Family Exam Limitations: No Limitations History of Present Illness Date Seen by Provider: Feb 19, 2023 Time Seen by Provider: 09:46 Initial Comments 77yoF with PMH of chronic hypoxic respiratory failure on 4L O2, COPD, pulm hypertension, HTN, HLD coming in with family due to general weakness for 1 week and no appetite for roughly 3 days. Denies any chest pain, is near her baseline shortness of breath, no cough, nausea, vomiting, diarrhea, focal weakness or numbness, headache, vision changes, fever, chills, rash, falls, or any other concerns. Allergies and Home Medications Allergies Coded Allergies: No Known Drug Allergies (Unverified , 06/15/22) Patient Home Medication List Home Medication List Reviewed: Yes Amlodipine Besylate (Amlodipine Besylate) 10 Mg Tablet, 10 MG PO DAILY, (Reported) Entered as Reported by: ZULEIKA ROSALES on 06/16/22 1050 Aspirin (Aspirin EC) 81 Mg Tablet.dr, 81 MG PO DAILY, (Reported) Entered as Reported by: ZULEIKA ROSALES on 06/16/22 1224 Atorvastatin Calcium (Atorvastatin Calcium) 40 Mg Tablet, 40 MG PO HS, (Report ed) Entered as Reported by: ZULEIKA ROSALES on 06/16/22 1050 Levofloxacin (Levofloxacin) 750 Mg Tablet, 750 MG PO DAILY Prescribed by: BRIANNE ARIAS on 02/19/23 1215 Magnesium Oxide (Magnesium Oxide) 400 Mg Tablet, 400 MG PO HS, (Reported) Entered as Reported by: ZULEIKA ROSALES on 06/16/22 1050 Metoprolol Succinate (Metoprolol Succinate) 50 Mg Tab.er.24h, 50 MG PO DAILY, (Reported) Entered as Reported by: ARIAS REYEZ on 08/30/22 0729 Mirabegron (Myrbetriq) 25 Mg Tab.er.24h, 25 MG PO DAILY, (Reported) Entered as Reported by: ZULEIKA ROSALES on 06/16/22 1050 Pregabalin (Lyrica) 25 Mg Capsule, 25 MG PO BID, (Reported) Entered as Reported by: ZULEIKA ROSALES on 06/16/22 1050 Pregabalin (Lyrica) 50 Mg Capsule, 50 MG PO BID, (Reported) Entered as Reported by: ARIAS REYEZ on 08/30/22 0729 Sildenafil Citrate (Sildenafil) 20 Mg Tablet, 20 MG PO TID, (Reported) Entered as Reported by: ARIAS REYEZ on 08/30/22 0729 Review of Systems Review of Systems Constitutional: No fever EENTM: no symptoms reported Respiratory: see HPI Cardiovascular: no symptoms reported Gastrointestinal: no symptoms reported Genitourinary: no symptoms reported Musculoskeletal: no symptoms reported Skin: no symptoms reported Psychiatric/Neurological: No Symptoms Reported Hematologic/Lymphatic: No Symptoms Reported Past Soxszgl-Lfmtxi-Mrpjgi Hx Patient Social History Tobacco Use?: No Smoking Status: Former Smoker Substance use?: No Immunizations Up To Date First/Initial COVID19 Vaccinat: UNKNOWN Second COVID19 Vaccination Richard: UNKNOWN Third COVID19 Vaccination Date: UNKNOWN Past Medical History COPD Coronary Artery Disease, High Cholesterol, Hypertension Renal Failure Family Medical History No Pertinent Family Hx Physical Exam Vital Signs Vital Signs - First Documented 02/19/23 02/19/23 09:56 10:18 Temp 36.5 Pulse 78 B/P (MAP) 142/63 (89) Pulse Ox 85 O2 Delivery Nasal Cannula O2 Flow Rate 4.00 Capillary Refill : Height, Weight, BMI Height: '" Weight: lbs. oz. kg; 30.00 BMI Method: General Appearance: No Apparent Distress, WD/WN Eyes: Bilateral Eye Normal Inspection, Bilateral Eye PERRL, Bilateral Eye EOMI HEENT: PERRL/EOMI, Normal ENT Inspection, Pharynx Normal Neck: Full Range of Motion, Normal Inspection, Non Tender, Supple Respiratory: Chest Non Tender, No Accessory Muscle Use, No Respiratory Distress, Crackles (Mild at the bases) Cardiovascular: Regular Rate, Rhythm, Normal Peripheral Pulses Gastrointestinal: Normal Bowel Sounds, Non Tender, Soft; No Distended, No Gu arding Back: Normal Inspection, No CVA Tenderness Extremity: Normal Capillary Refill, Normal Inspection, Normal Range of Motion, Non Tender, No Calf Tenderness, Pedal Edema (Trace) Neurologic/Psychiatric: Alert, Oriented x3, No Motor/Sensory Deficits, Normal Mood/Affect, bioinformatics support specialist II-XII Norm as Tested, Other (Normal [id number], normal gait, normal visual woods and visual acuity) Skin: Normal Color, Warm/Dry Progress/Results/Core Measures Suspected Sepsis SIRS Temperature: Pulse: 78 Respiratory Rate: Laboratory Tests 02/19/23 10:15: White Blood Count 7.7 Blood Pressure 142 /63 Mean: 89 Laboratory Tests 02/19/23 10:15: Creatinine 0.98, INR Comment 1.0, Platelet Count 223, Total Bilirubin 0.4 Results/Orders Lab Results Laboratory Tests Test 02/19/23 10:15 02/19/23 10:25 02/19/23 12:35 Range/Units White Blood Count 7.7 4.3-11.0 10^3/uL Red Blood Count 4.00 3.80-5.11 10^6/uL Hemoglobin 11.1 L 11.5-16.0 g/dL Hematocrit 37 35-52 % Mean Corpuscular Volume 92 80-99 fL Mean Corpuscular Hemoglobin 28 25-34 pg Mean Corpuscular Hemoglobin Concent 30 L 32-36 g/dL Red Cell Distribution Width 15.8 H 10.0-14.5 % Platelet Count 223 130-400 10^3/uL Mean Platelet Volume 9.2 9.0-12.2 fL Immature Granulocyte % (Auto) 1 % Neutrophils (%) (Auto) 70 42-75 % Lymphocytes (%) (Auto) 19 12-44 % Monocytes (%) (Auto) 6 0-12 % Eosinophils (%) (Auto) 3 0-10 % Basophils (%) (Auto) 1 0-10 % Neutrophils # (Auto) 5.4 1.8-7.8 10^3/uL Lymphocytes # (Auto) 1.4 1.0-4.0 10^3/uL Monocytes # (Auto) 0.5 0.0-1.0 10^3/uL Eosinophils # (Auto) 0.3 0.0-0.3 10^3/uL Basophils # (Auto) 0.1 0.0-0.1 10^3/uL Immature Granulocyte # (Auto) 0.1 0.0-0.1 10^3/uL Prothrombin Time 12.9 12.2-14.7 SEC INR Comment 1.0 0.8-1.4 Activated Partial Thromboplast Time 29 24-35 SEC Sodium Level 142 135-145 MMOL/L Potassium Level 4.7 3.6-5.0 MMOL/L Chloride Level 98 98-107 MMOL/L Carbon Dioxide Level 38 H 21-32 MMOL/L Anion Gap 6 5-14 MMOL/L Blood Urea Nitrogen 11 7-18 MG/DL Creatinine 0.98 0.60-1.30 MG/DL Estimat Glomerular Filtration Rate 59 BUN/Creatinine Ratio 11 Glucose Level 108 H 70-105 MG/DL Calcium Level 9.4 8.5-10.1 MG/DL Corrected Calcium 9.6 8.5-10.1 MG/DL Magnesium Level 2.1 1.6-2.4 MG/DL Total Bilirubin 0.4 0.1-1.0 MG/DL Aspartate Amino Transf (AST/SGOT) 15 5-34 U/L Alanine Aminotransferase (ALT/SGPT) 10 0-55 U/L Alkaline Phosphatase 74 40-136 U/L Troponin I < 0.028 <0.028 NG/ML B-Type Natriuretic Peptide 136.0 H <100.0 PG/ML Total Protein 6.6 6.4-8.2 GM/DL Albumin 3.8 3.2-4.5 GM/DL SARS-CoV-2 RNA (RT-PCR) Not Detected Not Detecte Urine Color YELLOW Urine Clarity SL CLOUDY Urine pH 7.0 5-9 Urine Specific Lisman 1.015 L 1.016-1.022 Urine Protein NEGATIVE NEGATIVE Urine Glucose (UA) NEGATIVE NEGATIVE Urine Ketones NEGATIVE NEGATIVE Urine Nitrite NEGATIVE NEGATIVE Urine Bilirubin NEGATIVE NEGATIVE Urine Urobilinogen 0.2 < = 1.0 MG/DL Urine Leukocyte Esterase 2+ H NEGATIVE Urine RBC (Auto) NEGATIVE NEGATIVE Urine RBC RARE /HPF Urine WBC 2-5 /HPF Urine Squamous Epithelial Cells 2-5 /HPF Urine Crystals PRESENT H /LPF Urine Amorphous Sediment RARE KRISTA PHOSPHATE H /LPF Urine Bacteria FEW H /HPF Urine Casts NONE /LPF Urine Mucus NEGATIVE /LPF Urine Culture Indicated YES My Orders Orders - BRIANNE ARIAS MD Chest 1 View, Ap/Pa Only (02/19/23 10:13) Ed Iv/Invasive Line Start (02/19/23 10:13) Ekg Tracing (02/19/23 10:13) O2 (02/19/23 10:13) Monitor-Rhythm Ecg Trace Only (02/19/23 10:13) Cbc With Automated Diff (02/19/23 10:13) Comprehensive Metabolic Panel (02/19/23 10:13) Magnesium (02/19/23 10:13) Protime With Inr (02/19/23 10:13) Partial Thromboplastin Time (02/19/23 10:13) Troponin I Bailey (02/19/23 10:13) Bnp Mary Ellen (02/19/23 10:13) Covid 19 Inhouse Test (02/19/23 10:28) Ua Culture If Indicated (02/19/23 10:28) Furosemide Injection (Lasix Injection) (02/19/23 11:30) Ceftriaxone Iv/Im (Rocephin Iv/Im) (02/19/23 11:30) Doxycycline Hyclate Tablet (Vibramycin T (02/19/23 11:24) Urine Culture (02/19/23 12:35) Medications Given in ED Current Medications Medications Dose Ordered Sig/Gloria Route Start Time Stop Time Status Last Admin Dose Admin Ceftriaxone Sodium 1000 mg/ Sodium Chloride 50 ml @ 100 mls/hr ONCE ONCE IV 02/19/23 11:30 02/19/23 11:59 DC 02/19/23 11:39 100 MLS/HR Furosemide 40 mg ONCE ONCE IVP 02/19/23 11:30 02/19/23 11:31 DC 02/19/23 11:39 40 MG Vital Signs/I&O 02/19/23 02/19/23 09:56 10:18 Temp 36.5 Pulse 78 B/P (MAP) 142/63 (89) Pulse Ox 85 O2 Delivery Nasal Cannula Nasal Cannula O2 Flow Rate 4.00 4.00 Capillary Refill : Blood Pressure Mean: 89 Progress Note : Progress Note 77-year-old female with above history coming in due to general weakness. ABCs were intact and vitals were stable on presentation on her baseline oxygen. Physical exam with no acute abnormalities. Particularly, NIH is 0 with no focal neurodeficits. Glucose is appropriate, an IV was placed and basic labs were obtained and were significant for normal white blood cell count, normal creatinine, negative troponin, BNP less than 200 which is lower than its been here in the past. Urinalysis without evidence of infection. Chest x-ray with right-sided pleural effusion on my interpretation. Radiologist agreed with this and they also were concerned for potential opacity abutting that. The patient was given IV antibiotics here. I reviewed the chart, and reviewed her most recent cardiology progress note, she does have severe pulmonary hypertension. She is on torsemide as needed, but does not take it. We will give her a dose of IV Lasix here and I will recommend they continue to take the torsemide. I will have him follow-up with her bilingual hr generalist soon as possible, but she is well- appearing and on her baseline oxygen and I believe stable for discharge with outpatient follow-up. ECG Initial ECG Impression Date: Feb 19, 2023 Initial ECG Impression Time: 10:32 Initial ECG Rate: 76 Initial ECG Rhythm: Normal Sinus Comment QRS is 112, but does have a right bundle branch pattern, no STEMI, appears similar to prior EKG Diagnostic Imaging Diagonstic Imaging: Xray (chest) Comments NAME: [facility] REC#: [id number] PT STATUS: REG ER : 1945 PHYSICIAN: BRIANNE ARIAS MD ADMIT DATE: 02/19/23/ER Draft Date of Exam:02/19/23 CHEST 1 VIEW, AP/PA ONLY CLINICAL INDICATION: Patient with weakness x1 week and no appetite x3 days. EXAM: Portable chest x-ray upright view. COMPARISON: Chest x-ray dated 08/30/2022. FINDINGS: There is interval development of a small right pleural effusion and right basilar atelectasis versus infiltrate. There is mild left basilar atelectasis. There is mild cardiomegaly. Pulmonary vasculature is within normal limits. There are degenerative spurs involving the spine. IMPRESSION: 1: There is interval development of a small right pleural effusion with mild right basilar atelectasis versus infiltrate. 2: There is mild left basilar atelectasis. Dictated on workstation # [id number] Dict: 02/19/23 1034 Trans: 02/19/23 1041 [id number] Interpreted by: DEVIN RAHMAN MD Electronically signed by: Departure Impression Primary Impression: Pleural effusion Additional Impression: Lung infiltrate Disposition: 01 HOME, SELF-CARE Condition: Stable Departure-Patient Inst. Decision time for Depature: 12:35 Referrals: NEVILLE LOZANO MD (PCP/Family) Primary Care Physician Patient Instructions: Pneumonia, Adult ED, Pleural Effusion (DC) Add. Discharge Instructions: You do have a little extra fluid on your right lung on the lower portion which can make you feel more short of breath. We recommend taking the torsemide for the next 3 to 5 days, depending on how symptoms are. There is likely infection in that same right lower lung. You will be on antibiotics for the next week. The next dose of the torsemide and antibiotics will be due tomorrow. If you are not feeling significantly better in the next 2 days, definitely follow back up with your doctor versus go to the ER if feeling worse. Scripts Levofloxacin (Levofloxacin) 750 Mg Tablet 750 MG PO DAILY for 7 Days, #7 TAB Prov: BRIANNE ARIAS MD 02/19/23 Work/School Note: Family Work Note Patient Received Medical Care In the Emergency Department On: Feb 19, 2023 Patient Will Be Able to Return to Work/School On: Feb 20, 2023 BRIANNE ARIAS MD Feb 19, 2023 10:28
[2023-02-19 10:33] LABS: PROTHROMBIN TIME PATIENT 12.9 SEC (12.2-14.7)
--- NOTE | 2023-02-19 10:42 | Diagnostic Imaging Report ---
CLINICAL INDICATION: Patient with weakness x1 week and no appetite x3 days. EXAM: Portable chest x-ray upright view. COMPARISON: Chest x-ray dated 08/30/2022. FINDINGS: There is interval development of a small right pleural effusion and right basilar atelectasis versus infiltrate. There is mild left basilar atelectasis. There is mild cardiomegaly. Pulmonary vasculature is within normal limits. There are degenerative spurs involving the spine. IMPRESSION: 1: There is interval development of a small right pleural effusion with mild right basilar atelectasis versus infiltrate. 2: There is mild left basilar atelectasis. Dictated by: Dictated on workstation # [id number]
[2023-02-19 10:46] LABS: ALBUMIN 3.8 GM/DL (3.2-4.5); ALKALINE PHOSPHATASE 74 U/L (40-136); BILIRUBIN,TOTAL 0.4 MG/DL (0.1-1.0); BUN/CREATININE RATIO 11; CALCIUM 9.4 MG/DL (8.5-10.1); CARBON DIOXIDE 38 MMOL/L (21-32); CHLORIDE 98 MMOL/L (98-107); CREATININE SERUM 0.98 MG/DL (0.60-1.30); GFR ESTIMATED 59; GLUCOSE 108 MG/DL (70-105); MAGNESIUM 2.1 MG/DL (1.6-2.4); POTASSIUM 4.7 MMOL/L (3.6-5.0); SODIUM 142 MMOL/L (135-145); TOTAL PROTEIN 6.6 GM/DL (6.4-8.2)
[2023-02-19] MEDS ORDERED: DOXYCYCLINE 100 MG (VIBRAMYCIN) TABLET PO STA (11:24)
[2023-02-19] MEDS ORDERED: FUROSEMIDE 40 MG/4 ML INJ (LASIX) IVP ONE (11:30)
[2023-02-19] MEDS ORDERED: cefTRIAXone IV/IM 1,000 MG in NS (IVPB) 50 ML IV ONE (11:30)
[2023-02-19 11:42] LABS: ALANINE AMINOTRANSFERASE 10 U/L (0-55)
[2023-02-19] MEDS ORDERED: LEVO750T PO (12:15)
[2023-02-19 12:43] LABS: BILIRUBIN,URINE NEGATIVE (NEGATIVE); CLARITY,URINE SL CLOUDY; COLOR,URINE YELLOW; GLUCOSE, URINE (UA) NEGATIVE (NEGATIVE); KETONES,URINE NEGATIVE (NEGATIVE); LEUKOCYTE ESTERASE ,URINE 2+ (NEGATIVE); NITRITE,URINE NEGATIVE (NEGATIVE); PROTEIN,URINE NEGATIVE (NEGATIVE)
[2023-02-19 12:51] LABS: BACTERIA,URINE FEW /HPF; RBC,URINE RARE /HPF
[2023-02-19 12:52] LABS: AMORPHOUS SEDIMENT,UR RARE AMOR PHOSPHATE /LPF
[2023-02-19 13:24] VITALS: BP 117/59
== END 2023-02-19 13:24 | disposition home or self-care (01) ==
LOC: EDUNIT# 09:39 → ER 09:40
DX: J90 Pleural effusion, not elsewhere classified (principal); R91.8 Other nonspecific abnormal finding of lung field; J96.10 Chronic respiratory failure, unspecified whether with hypoxia or hypercapnia; Z99.81 Dependence on supplemental oxygen; Z87.891 Personal history of nicotine dependence; Z20.822 Contact with and (suspected) exposure to COVID-19
CPT/HCPCS: 36415; 71045; 80053; 81000; 83735; 83880; 84484; 85025; 85610; 85730; 87088; 87636; 93005; 93041

== ENCOUNTER → 2023-07-06 | Outpatient (CLI) | payer MEDICARE ==
[~2023-07-06] MED LIST changes: +LEVO750T PO
[2023-07-06 11:48] LABS: ALBUMIN 3.9 GM/DL (3.2-4.5)
[2023-07-06 11:50] LABS: CALCIUM 9.8 MG/DL (8.5-10.1)
[2023-07-06 11:51] LABS: TOTAL PROTEIN 7.3 GM/DL (6.4-8.2)
[2023-07-06 11:52] LABS: BILIRUBIN,TOTAL 0.5 MG/DL (0.1-1.0)
[2023-07-06 11:54] LABS: CREATININE SERUM 1.34 MG/DL (0.60-1.30)
== END ==
LOC: LAB 11:21
PROVIDERS: ATTEND Internal Medicine Critical Care Medicine
DX: I27.20 Pulmonary hypertension, unspecified (principal); R06.02 Shortness of breath; Z79.899 Other long term (current) drug therapy
CPT/HCPCS: 36415; 80053; 83880

== ENCOUNTER → 2023-07-11 | Outpatient (CLI) | payer MEDICARE | LOC: CARD 10:47 | PROVIDERS: ATTEND Internal Medicine Critical Care Medicine | DX: I27.20 Pulmonary hypertension, unspecified (principal); J96.11 Chronic respiratory failure with hypoxia; I35.1 Nonrheumatic aortic (valve) insufficiency | CPT/HCPCS: 93306 ==